=== PATIENT | male | born 1960 | race Caucasian/White ===

== ENCOUNTER 2022-11-30 07:08 | Inpatient (IN) ==
--- NOTE | 2022-11-12 10:42 | PAT Medication Instructions ---
Medication Instructions Date of Service November 12, 2022 Home Medications amlodipine 10 mg tablet 10 mg PO QAM apixaban 5 mg tablet (Eliquis) 5 mg PO BID furosemide 40 mg tablet 40 mg PO QAM losartan 100 mg-hydrochlorothiazide 25 mg tablet 1 tab PO QAM metoprolol succinate 50 mg tablet,extended release 24 hr 50 mg PO QAM multivitamin 1 tab PO QAM ASK your prescriber and surgeon apixaban 5 mg tablet (Eliquis) 5 mg PO BID DO NOT take the morning of surgery furosemide 40 mg tablet 40 mg PO QAM losartan 100 mg-hydrochlorothiazide 25 mg tablet 1 tab PO QAM multivitamin 1 tab PO QAM Take morning of surgery With a small sip of water, OTHERWISE NOTHING TO EAT OR DRINK AFTER MIDNIGHT: amlodipine 10 mg tablet 10 mg PO QAM metoprolol succinate 50 mg tablet,extended release 24 hr 50 mg PO QAM Other Notes If you have any questions please call us at [phone] or [phone] or [phone] or [phone]
--- NOTE | 2022-11-17 14:16 | Anesthesiology Consultation ---
Date of Service November 17, 2022 Assessment & Plan (1) Encounter for pre-operative examination: - COVID screening: Per assessment on 11/17: No known COVID-19 positive contacts or current COVID-19 related symptoms. Travel screen negative. Patient vaccinated. At surgeon discretion if preop Covid testing being done. - Nephrology office visit (06/20/22): "Mr. Trejo is awaiting surgical repair of his iliac aneurysm. I did speak w/ Dr. Guillory by telephone today. He plans CTA in early July followed by surgical intervention. He did indicate that Cr will be monitored and if CTA results in worsening renal function then TCC will be placed and Nephrology consultation requested to set up IHD in [place], [place]. Mr. Trejo is agreeable to this plan of care. Will schedule return visit in 2 months. Patient, however, will cancel if IHD is started.. CKD stage G5/A2 (End Stage Kidney Disease). Baseline Cr 4.5 w/ EGFR 15 cc/min. 05/[address] [facility] was negative for obstruction but did reveal nonobstruc ting kidney stones. Renal impairment is on the basis of vascular disease.. 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 Patient underwent a Lexiscan myocardial imaging study in April 2022 which showed small apical defect likely soft tissue artifact, underwent an echocardiogram in April 2022 as well which showed normal LV function, mild to moderate MR, trace AI and mild PI. With mildly dilated ascending aorta. He underwent a Holter monitor on April 16 as well which showed predominantly atrial fibrillation which was rate controlled with only 1 episode of RVR. He also had a CT scan of the chest abdomen pelvis that showed an aneurysm of the left common iliac artery for which she was referred to vascular surgery in [facility].. At this time he is doing well from a cardiac standpoint.. We will continue current medications.. Will recommend follow-up in 6 months. Is having aneurysm repair this month, will discuss SYDNIE cardioversion on next visit." - Eliquis instructions: per surgeon/prescriber - Check BMP AM DOS (low sodium at 132, kidney function stable- known hx of CKD stage 5) Chart Review Chart Review: Acceptable Risk for Surgery and Patient seen in Pre Admission Testing Teaching & Discussion Pre-Anesthesia Teaching/Discussion Notes: Instructed NPO after midnight before surgery,except medications with 15 cc of water. Medication instructions provided according to the PAT guidelines. History Surgery Operation Date: 11/30/22 09:35 Proposed Procedures p Iliac Aneurysm Repair, Percutaneous Endovascular Infrarenal Abdominal Aortic Aneurysm Repair - Lorenzo Guillory MD Height/Weight Height: 5 ft 11 in Weight: 111 kg Allergies Allergy/AdvReac Type Severity Reaction Status Date / Time No Known Drug Allergies Allergy Unknown Verified 11/11/22 07:43 Medications Home Medications Medication Instructions Recorded Confirmed Last Taken amlodipine 10 mg tablet 10 mg PO QAM 06/02/22 11/11/22 Unknown apixaban 5 mg tablet (Eliquis) 5 mg PO BID 06/02/22 11/11/22 Unknown furosemide 40 mg tablet 40 mg PO QAM 06/02/22 11/11/22 Unknown losartan 100 1 tab PO QAM 06/02/22 11/11/22 Unknown mg-hydrochlorothiazide 25 mg tablet metoprolol succinate 50 mg 50 mg PO QAM 06/02/22 11/11/22 Unknown tablet,extended release 24 hr multivitamin 1 tab PO QAM 06/02/22 11/11/22 Unknown Past Medical History Medical History AAA (abdominal aortic aneurysm) 3.4cm per abdomen/pelvis CTA 09/29/22 Aneurysm artery, iliac L>R (measuring up to 5.1cm) per abdomen/pelvis CTA 09/29/22 Atrial fibrillation [facility], taking Eliquis Chronic active hepatitis C Chronic kidney disease, stage V Cirrhosis COPD (chronic obstructive pulmonary disease) per records, pt denies H/O reduction of closed fracture right arm Hypertension Kidney stones Obesity Psoriasis PVD (peripheral vascular disease) Exercise / Class Metabolic Activity III < 4 Walking/Shop/Light housework Past Family History Family History Other No family history of adverse response to anesthesia Past Surgical History Surgical History H/O umbilical hernia repair History of colonoscopy History of lithotripsy S/P debridement left elbow for cellulitis Past Anesthesia History No Hx of Anesthesia Complications and No Family Hx of Anesthesia Complications History of PONV No Hx of PONV and No Hx of Motion Sickness Social History Smoking Status: Current every day smoker tobacco type: cigarettes Smoking cigarettes per day: Approximately 3 cigs/day Do You Dip or Chew Tobacco: No Hx Alcohol Use: No Hx Substance Use: Yes substance use type: marijuana (Very rare) Last Used Substance Other:: 3 months ago Review of Systems Patient denies chest pain, shortness of breath, fever, chills, cough, wheezing, palpitations. Physical Exam Vital Signs VITALS BP 128/86 P 95 TEMP 98.6 SP02 99%%RA RESP 16 PHYSICAL Full cervical extension range of motion. Full TMJ range of motion. TMD 3 finger breaths Mallampati Score 3 Dentition: full denture upper, partial on lower Lungs: clear throughout to auscultation Cardiac: regular rate, irregular rhythm, no murmurs noted Spine: normal Carotid arteries: negative bruit Extremities: no edema Short, thin staples Lab Results Anesthesia Preop Results Results Anesthesia Widget: WBC 10.29 K/ul (4.8-10.8) 11/17/22 Hgb 11.2 g/dl (14.0-18.0) L 11/17/22 Hct 33.7 % (40.1-51.0) L 11/17/22 Plt K/uL (130-400) 11/17/22 Na 132 mmol/L (136-145) L 11/17/22 K 4.7 mmol/L (3.5-5.1) 11/17/22 Cl 103 mmol/L (98-107) 11/17/22 CO2 21 mmol/L (21-32) 11/17/22 BUN 59 mg/dl (6-23) H 11/17/22 Creat 3.73 mg/dl (0.6-1.4) H 11/17/22 Glucose Level 97 mg/dl (70-99(Fasting)) 11/17/22 Blood Type A Positive 11/17/22 Antibody Screen NEGATIVE 11/17/22 Testing Electrocardiogram Date: 11/17/22 A. fib at 88bpm. LAD. Chest X-Ray Date: 11/18/22 FINDINGS: PA and lateral chest radiographs are obtained. No prior studies are available for comparison at the time of dictation. The heart is enlarged measuring atherosclerotic calcification of the thoracic aorta. The pulmonary vasculature is noncongested. The lungs and pleural spaces are clear. There is no pneumothorax. The skeletal structures are osteopenic. The bony thorax appears intact. IMPRESSION: Cardiomegaly with no active disease in the chest. Echocardiogram Date: 04/16/22 EF 60%. Mild concentric LVH. Mild to moderate MR directed eccentrically. Mild TR. Physiologic AL. Mildly increased PASP (42 mmHg). Enlarged ascending aorta (ascending equal 4.10 cm). Stress Test Date: 04/16/22 Type: nuclear Diaphragmatic attenuation. Normal gated MPI wall motion and EF. Small in size, mild intensity, fixed MPI defect of the distal inferior and infero-apical myocardium. This suggests small infarct or diaphragmatic attenuation. No evidence of ischemia. Low risk study. Lexiscan stress ECG was negative for myocardial ischemia. Other Testing CTA Abdomen/pelvis (09/29/22) Moderate atherosclerotic vascular disease with fusiform aneurysmal dilation of the abdominal aorta measuring up to 3.4 cm. Aneurysmal dilation of the left greater than right common iliac arteries measures up to 5.1 cm. Duplicated renal arteries with bilateral renal arterial stenosis as above. No dissection or arterial occlusion. Cirrhosis with splenomegaly suggestive of portal venous hypertension. Nonobstructing bilateral nephrolithiasis. Trace right pleural effusion. COVID-19 Risk Screen Screening Information COVID-19 Screen Date: 11/17/22 Exposure 21 Days Family/Household +COVID Last 21 Days: No Exposure 10 Days Any COVID Exposure Last 10 Days: No Symptoms Last 10 Days Experienced COVID Sx Last 10 Days: No + COVID 0-90 Days COVID + in Last 0-90 Days: No
[~2022-11-30 07:08] MED LIST: CEFAZOLIN 2,000 MG/15 ML SYR IV SCH; LACTATED RINGER'S 1,000 ML BAG IV SCH
--- NOTE | 2022-11-30 07:38 | History & Physical Report ---
Date of Service November 30, 2022 History of Present Illness Chief Complaint: AAA Primary Care Provider: Unique Frances MD Chief Complaint rm#7 here for f/u after CTA left iliac aneurysm. Last visit was 05/2022. History of Present Illness I the pleasure of seeing Cory today for follow-up. As you know he is an 62-year-old gentleman who has a known left common iliac artery aneurysm and negative ectatic right common iliac artery. He also has a small abdominal aortic aneurysm. He has no symptoms at this point. He has no claudication of either lower extremity. He does have generalized psoriasis present which he is not taking anything for it at this point. Physical Exam Vitals & Measurements HR: 94 (Monitored) BP: 134/92 SpO2: 98% Input and Output - Last 24 hours (Last 8 hours) No I/O Data Found: On exam he is awake alert and oriented x3. His blood pressure is 134/92. His lungs are clear. His heart has a reg rate and rhythm His abdominal exam is benign. He does have good distal pulses in both lower extremities. He has generalized psoriasis present over his lower extremities arms and buttock. He has no involvement of the groin at this point. CT scan showed a large left common iliac artery aneurysm and ectatic right common iliac. He does have a small abdominal aortic aneurysm. He does have 2 small accessory renal arteries coming off low on the aorta the left having a significant narrowing. Assessment/Plan Aneurysm artery, iliac At this point we recommend percutaneous repair of his abdominal and iliac arteries being that there is no neck on the iliac to do an endovascular repair. We will have to cover the 2 small renal arteries due to the their location. Risks options and benefits were discussed with the patient. He understood all these involved and agreed to go with this procedure. Generalized psoriasis We did start him on a steroid dose topically to be applied to the groins and upper thighs to help decrease the psoriasis and the planned areas of access for his endograft repair. Will keep me informed as to his results. Thank you very much for letting us participate in the care of this patient. Sincerely, Buddy Guillory MD Problem List/Past Medical History Ongoing Iliac artery aneurysm Tobacco user Historical No qualifying data Medications Inpatient No active inpatient medications Home amLODIPine 10 mg oral tablet, 10 mg= 1 tab, PO, Daily Eliquis 5 mg oral tablet, 5 mg= 1 tab, PO, bid fluocinolone 0.01% topical cream, 1 appl, topical, bid, 1 refills furosemide 40 mg oral tablet, 40 mg= 1 tab, PO, Daily hydroCHLOROthiazide-losartan 25 mg-100 mg oral tablet, 1 tab, PO, Daily Metoprolol Succinate ER 50 mg oral tablet, extended release, 50 mg= 1 tab, PO, Daily Mucomyst-20 for nebulization, See Instructions Allergies NKA Social History Smoking Status Current every day light smoker Signature Line Electronic Signature on File Lorenzo Guillory MD Author Signature Dt/Tm: 11/09/2022 03:06 PM Tribal Judge Werner Garrett [facility] [place] [address] [place] [address] EJS Result Type: .Outpt Ltr Date of Service: November 09, 2022 15:05 EST Authorization Status: Final Subject: Consult Note Author or Import Date: MD Guillory Eugene J on November 09, 2022 15:06 EST Verified By: MD Guillory Eugene J on November 09, 2022 15:06 EST Encounter info: [id number], [facility], Clinic, 11/09/2022 - 11/09/2022 Allergies Allergy/AdvReac Type Severity Reaction Status Date / Time No Known Drug Allergies Allergy Unknown Verified 11/30/22 07:36 Home Medications Medication Instructions Recorded Confirmed Type amlodipine 10 mg tablet 10 mg PO QAM 06/02/22 11/11/22 History apixaban 5 mg tablet (Eliquis) 5 mg PO BID 06/02/22 11/11/22 History furosemide 40 mg tablet 40 mg PO QAM 06/02/22 11/11/22 History losartan 100 1 tab PO QAM 06/02/22 11/11/22 History mg-hydrochlorothiazide 25 mg tablet metoprolol succinate 50 mg 50 mg PO QAM 06/02/22 11/11/22 History tablet,extended release 24 hr multivitamin 1 tab PO QAM 06/02/22 11/11/22 History Past Med/Surg History Medical History AAA (abdominal aortic aneurysm) 3.4cm per abdomen/pelvis CTA 11/29/22 Aneurysm artery, iliac L>R (measuring up to 5.1cm) per abdomen/pelvis CTA 09/29/22 Atrial fibrillation [facility], taking Eliquis Chronic active hepatitis C Chronic kidney disease, stage V Cirrhosis COPD (chronic obstructive pulmonary disease) per records, pt denies H/O reduction of closed fracture right arm Hypertension Kidney stones Obesity Psoriasis PVD (peripheral vascular disease) Surgical History H/O umbilical hernia repair History of colonoscopy History of lithotripsy S/P debridement left elbow for cellulitis Family History Other No family history of adverse response to anesthesia Social History Smoking Status: Current some day smoker Tobacco Type: Cigarettes Cigarettes Per Day: Approximately 3 cigs/day; Second Hand Exposure: No; Do You Dip or Chew Tobacco: No; Tobacco Cessation Education Requested by Patient: No Hx Alcohol Use: No Hx Substance Use: Yes Last Used Substance Other:: 3 months ago Preferred Language: Kazakh Communication Ability: Effective Automatic Beading Lathe Operator Required: No Beliefs That Will Affect Care: None Current Living Situation: Spouse Other Information That Helps Us Care for You: No Feels Safe at Home: Yes Safety Concerns: Feels Safe At This Time Assistive Devices: Denture - Upper and Denture - Lower
--- NOTE | 2022-11-30 07:39 | History & Physical Bridge Note ---
Date of Service November 30, 2022 History & Physical Bridge Note Patient for endovascular repair of his iliac and abdominal aortic aneurysms. I have discussed the risks options and benefits of the procedure with the patient. The patient understands the risks options and benefits and agrees to the procedure. I have examined the patient, reviewed the History & Physical and in the interval since the performance of the History & Physical I have noted the following changes of clinical significance: no changes noted
[2022-11-30] MEDS ORDERED: ONDANSETRON INJ 2 MG/ML 2 ML VIAL IV PRN (08:30)
[2022-11-30] MEDS ORDERED: ATROPINE SULFATE 0.1 MG/ML 10ML SYR IV PRN (08:30)
[2022-11-30] MEDS ORDERED: ePHEDrine sulfate 50 MG/ML AMP IV PRN (08:30)
[2022-11-30] MEDS ORDERED: fentaNYL citrate 100 MCG/2 ML VIAL IV PRN (08:30)
[2022-11-30] MEDS ORDERED: PROPOFOL IV EMULSION 10 MG/ML 20 ML VIAL IV ONE (08:34)
[2022-11-30] MEDS ORDERED: ONDANSETRON INJ 2 MG/ML 2 ML VIAL ONE (08:34)
[2022-11-30] MEDS ORDERED: ROCURONIUM BROMIDE 10 MG/ML 5 ML VIAL IV ONE ×4 (08:34→09:43)
[2022-11-30] MEDS ORDERED: LIDOCAINE 2% MPF LOCAL 5 ML VIAL INFIL ONE (08:34)
[2022-11-30] MEDS ORDERED: MIDAZOLAM HCL 1 MG/ML 2ML VIAL ONE (08:34)
[2022-11-30] MEDS ORDERED: fentaNYL citrate 100 MCG/2 ML VIAL ONE (08:34)
[2022-11-30 08:37] LABS: Calcium 8.8 mg/dl (8.5-10.1); Potassium 4.4 mmol/L (3.5-5.1)
[2022-11-30 08:42] LABS: BUN Creatinine Ratio 14.8 (10-20); Creatinine Clr Calc Pharmacy 21.8 ml/min; Est GFR (African American) 15.6 ml/min; Est GFR (Non-African American) 13.5 ml/min
[2022-11-30] MEDS ORDERED: VASOPRESSIN 20 UNIT/ML VIAL ONE (09:43)
[2022-11-30] MEDS ORDERED: ALBUTEROL HFA 8 GM INHALER INH ONE (09:44)
[2022-11-30] MEDS ORDERED: HEPARIN SOD (PORCINE) 1000 UNIT/ML ONE ×2 (10:50→11:00)
[2022-11-30] MEDS ORDERED: ALBUMIN HUMAN 5% 12.5 GM/250 ML VIAL IV ONE (10:57)
[2022-11-30] MEDS ORDERED: GLYCOPYRROLATE 0.2 MG/ML VIAL ONE (11:27)
[2022-11-30] MEDS ORDERED: NEOSTIGMINE METHYLSULFATE 1 MG/ML 10ML VIAL ONE (11:27)
[2022-11-30] MEDS ORDERED: PHENYLEPHRINE HCL 10 MG/ML VIAL ONE (11:27)
[2022-11-30] MEDS ORDERED: VISIPAQUE IV PRN (11:37)
[2022-11-30] MEDS ORDERED: ARISTA ABSORBABLE HEMOSTAT 3GM TOP ONE (11:37)
--- NOTE | 2022-11-30 11:50 | Post Operative Brief Note ---
Immediate Post Op Note v1 Date of Surgery November 30, 2022 Pre & Post Diagnosis Operation Date: 11/30/22 09:10 Pre-Op Diagnosis: Abdominal Aortic Aneurysm, Left Iliac Artery Aneurysm Post-Op Diagnosis: Abdominal Aortic Aneurysm, Left Iliac Artery Aneurysm I identified the patient and participated in the time-out.: Yes Procedure Operation Date: 11/30/22 09:10 Actual Procedures p Percutaneous Endovascular Abdominal Aortic Aneurysm Repair with Iliac Branch Device, Ultrasound Localization of Bilateral Femoral Arteries, Mechanical Closure of Bilateral Femoral Arteries(Bilateral) - Lorenzo Guillory MD Surgeon Lorenzo Guillory MD Hazardous Materials Handler MD Carlos Estimated Blood Loss 100 Findings Consistent with Post-Op Diagnosis Anesthesia Type General Complications none Disposition Accompanied Patient To Recovery: No Disposition: Recovery Room
--- NOTE | 2022-11-30 11:52 | Operative Report ---
Post Operative Report Pre & Post Diagnosis Operation Date: 11/30/22 09:10 Pre-Op Diagnosis: Abdominal Aortic Aneurysm, Left Iliac Artery Aneurysm Post-Op Diagnosis: Abdominal Aortic Aneurysm, Left Iliac Artery Aneurysm I identified the patient and participated in the time-out.: Yes Procedure Operation Date: 11/30/22 09:10 Actual Procedures p Percutaneous Endovascular Abdominal Aortic Aneurysm Repair with Iliac Branch Device, Ultrasound Localization of Bilateral Femoral Arteries, Mechanical Closure of Bilateral Femoral Arteries(Bilateral) - Lorenzo Guillory MD Surgeon Lorenzo Guillory MD Shorts Sifter Gabe Estrella Estimated Blood Loss 100 Findings Consistent with Post-Op Diagnosis Bilateral common femoral artery access visualized under ultrasound guidance. Left common iliac artery aneurysm and small infrarenal abdominal aortic aneurysm as well as ectatic right common iliac artery visualized on aortogram. Following deployment of iliac branch device and EVAR, there was complete exclusion of the small abdominal aortic aneurysm, common iliac artery aneurysm on the left. There was no Type I, III, or IV endoleak. There was a small type II endoleak. The bilateral internal iliac arteries remained patent at case completion as well as the bilateral renal arteries. The bilateral accessory renal arteries were occluded as planned pre-procedure. Specimens None Anesthesia Type General Complications None Indications This is a 62 year old male with PMH of a large left common iliac artery aneurysm and a small infrarenal abdominal aortic aneurysm as well as a history of CKD anticipating the need for hemodialysis within the next year. He presents today for repair of his large left common iliac artery aneurysm as well as his infrarenal AAA with an iliac branch device followed by EVAR. Description of Procedure The patient was taken to the operating room suite and placed in the supine position. Time out was performed and the correct patient, procedure, and laterality were confirmed. Two grams of lake-operative Ancef were given. The abdomen, bilateral groins, and bilateral thigh was then prepped and draped in a sterile manner. Using ultrasound guidance, the right common femoral artery was accessed using micropuncture technique. An 8Fr Manta measuring device was inserted over the wire measuring a depth of 5+1. The measuring device was removed. A small skin incision was made at the skin site of entry and subcutaneous tissue was dilated using a hemostat. The measuring device was then exchanged for an 12Fr x 45cm DrySeal sheath over the wire under fluoroscopic guidance. The wire was then exchanged for a Rubin wire. An angled glide wire was then introduced into the right DrySeal sheath and brought into the infrarenal aorta. A Snare device was advance over the wire to the level of the aortic bifurcation. The angle glide wire was then removed from the right groin. Attention was then turned to the left groin where the left common femoral artery was accessed using micropuncture technique. An angled glide wire was then inserted. A small skin incision was made at the skin site of entry and subcutaneous tissue was dilated using a hemostat. A 8Fr Manta measuring device into the left common femoral artery over the angled glide wire, measuring a depth of 4+1cm. The measuring device was then exchanged for an 12Fr dilator followed by a 16Fr x 33cm DrySeal sheath over the wire under fluoroscopic imaging. The wire was then exchanged for a Rubin wire. An angled glide was then inserted into the left DrySeal sheath into the infrarenal aorta. It was captured by the Snare device on the right and brought out through the right DrySeal Sheath The left VIKTORIYA Sheldon Excluder main body (23mm x 14.5mm x 10cm) was then advance over the Rubin wire to the proximal left common iliac artery. A left pelvic angiogram was performed and the left iliac bifurcation was marked. The left VIKTORIYA main body was deployed. The right Rubin wire was removed and the right sheath was advanced over the flossed angled glide wire into the left common iliac artery within the VIKTORIYA main body. An angled glide wire was introduced and used to cannulate the left internal iliac artery through the device with the help of a Confianza catheter. Wire was exchanged for an Stiff Amplatz. A left pelvic angiogram was performed through the right 12Fr sheath. The bifurcation, proximal and distal landing zones were marked. The left internal Sheldon Excluder VIKTORIYA component ([id number]) was deployed. On the right side, the 12Fr sheath was exchanged for a 16Fr dilator followed by an exchange for a 18Fr x 33mm DrySeal sheath. This was advanced into the infrarenal aorta over a Rubin wire. A pigtail catheter was advanced over the Rubin wire on the left, the wire was removed and the pigtail was connected to the power injector. An aortogram was taken and the level of the inferior origin of the bilateral renal arteries were marked. The EVAR Sheldon Excluder main body ([id number]) was deployed to the opening of the contralateral gate. From the left side, the pigtail catheter was exchanged for Confianza catheter over an angled glide wire. The contralateral gate was cannulated using an angled glide wire. Catheter was spun within the proximal portion of the graft to confirm true lumen. A left pelvic angiogram was taken through the left sheath marking the origin of the common and internal iliac artery on the left. An appropriately sized 16mm x 27mm x 10cm Sheldon Excluder left bridge limb was then advanced and deployed. The proximal graft, origin of left limb at the flow divider, and the distal limb were then ballooned using hand insufflation. Attention was moved to the right side where an appropriately sized 16mm x 23mm x 10cm Sheldon excluder iliac extension limb was deployed and then ballooned using hand insufflation just following ballooning of the proximal portion of the EVAR. A completion angiogram was performed demonstrating No Type I or type III endoleak. There was a small Type II endoleak. Bilateral renal arteries and internal iliac arteries patent with brisk filling. Accessory renal arteries covered without filling. The left DrySeal sheath was exchanged for the 18Fr Manta device. The Manta was deployed. Adequate hemostasis was obtained. Pressure was held. The right DrySeal sheath was exchanged for the 18Fr Manta device. The Manta was deployed. Adequate hemostasis was obtained. Pressure was held. Patient was extubated and taken to the PACU in stable condition. A total of 105cc contrast used for the duration of the case. Dr. Guillory was present and scrubbed for the entire procedure. I attest to the content of the Intraoperative Record and any orders documented therein. Any exceptions are noted below. Supervising Physician Co-Signing Physician Notes Lorenzo Guillory MD
--- NOTE | 2022-11-30 12:21 | Anesthesiology Progress Note ---
Date of Service November 30, 2022 Anesthesia Post Procedure Vital Signs Vital Signs: Temp Pulse Pulse Resp BP BP Pulse Ox 11/30/22 12:07 97.3 F L 84 25 H 93/56 L 99 11/30/22 07:46 97.9 F 91 H 16 129/85 139/95 98 O2 Del Method O2 Flow Rate 11/30/22 12:07 Oxymask 4 11/30/22 07:46 Room Air Pain Intensity Right Foot: Pain Intensity: 3 Transfer of Care Handoff Completed per policy Notes Mental Status: alert / awake / arousable and participated in evaluation Patient Amnestic to Procedure: Yes Nausea / Vomiting: adequately controlled Pain: adequately controlled Airway Patency, RR, SpO2: stable & adequate BP & HR: stable & adequate Hydration State: stable & adequate Anesthetic Complications: no major complications apparent and Pt Satisfied with anesthetic care
[2022-11-30 12:42] LABS: Hematocrit (blood only) 27.1 % (42.0-52.0); Hemoglobin 8.9 g/dl (14.0-18.0)
[2022-11-30] MEDS ORDERED: D5W AND 1/2NSS 1,000 ML IV SCH (12:43)
[2022-11-30 13:00] LABS: Potassium 4.5 mmol/L (3.5-5.1)
[2022-11-30 13:05] LABS: BUN Creatinine Ratio 14.7 (10-20); Est GFR (African American) 15.7 ml/min; Est GFR (Non-African American) 13.6 ml/min
--- NOTE | 2022-11-30 13:39 | Critical Care Consultation ---
Date of Consultation November 30, 2022 Assessment & Plan (1) Post-operative state: 62 y/o gentleman with a PMHx of a. fib, HTN, CKD/ESRD (not on dialysis) and tobacco use now s/p percutaneous iliac artery and AAA repair 11/[address] Guillory. Patient did have some hypotension on arrival to the ICU which has since improved. Percocet for pain management. Overall doing well and recovering appropriately. Lay flat for 6 hours post-op. Continue to monitor. Rest of care per Dr. Guillory. FENGI: sips and chips DVT ppx: SCDs Code status: full Dispo: ICU (2) Hypertension: Continue home meds - will hold if patient continues to have soft BPs (3) Atrial fibrillation: Continue home Eliquis and metoprolol (4) Aneurysm artery, iliac: s/p repair - see above Supervising Physician Co-Signing Physician Notes Dr. Greene was resident physician during care of patient. I was present during the critical portion of medical decision making, and I discussed the case with the resident. I generally agree with the findings and plan. History of Present Illness Attending Physician: Lorenzo Guillory MD History of Present Illness 62 y/o male admitted to ICU level care after percutaneous iliac artery aneurysm and AAA repair 11/30. Overall doing well. Allergies Allergy/AdvReac Type Severity Reaction Status Date / Time No Known Drug Allergies Allergy Unknown Verified 11/30/22 07:36 Home Medications Medication Instructions Recorded Confirmed Type amlodipine 10 mg tablet 10 mg PO QAM 06/02/22 11/30/22 History apixaban 5 mg tablet (Eliquis) 5 mg PO BID 06/02/22 11/30/22 History furosemide 40 mg tablet 40 mg PO QAM 06/02/22 11/30/22 History losartan 100 1 tab PO QAM 06/02/22 11/30/22 History mg-hydrochlorothiazide 25 mg tablet metoprolol succinate 50 mg 50 mg PO QAM 06/02/22 11/30/22 History tablet,extended release 24 hr multivitamin 1 tab PO QAM 06/02/22 11/30/22 History oxycodone-acetaminophen 5 mg-325 1 tab PO Q6H PRN pain #10 tabs 12/01/22 Rx mg tablet (Percocet) Patient History Medical History (Updated 11/30/22 @ 13:49 by Matilda Greene MD) AAA (abdominal aortic aneurysm) 3.4cm per abdomen/pelvis CTA 09/29/22 Aneurysm artery, iliac L>R (measuring up to 5.1cm) per abdomen/pelvis CTA 09/29/22 Atrial fibrillation [facility], taking Eliquis Chronic active hepatitis C Chronic kidney disease, stage V Cirrhosis COPD (chronic obstructive pulmonary disease) per records, pt denies H/O reduction of closed fracture right arm Hypertension Kidney stones Obesity Psoriasis PVD (peripheral vascular disease) Surgical History (Updated 12/01/22 @ 08:00 by Lorenzo Guillory MD) H/O umbilical hernia repair History of colonoscopy History of lithotripsy S/P debridement left elbow for cellulitis Family History Other No family history of adverse response to anesthesia Social History Smoking Status: Current some day smoker Tobacco Type: Cigarettes Cigarettes Per Day: Approximately 3 cigs/day; Second Hand Exposure: No; Do You Dip or Chew Tobacco: No; Tobacco Cessation Education Requested by Patient: No Hx Alcohol Use: No Hx Substance Use: Yes Last Used Substance Other:: 3 months ago Preferred Language: Armenian Communication Ability: Effective 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: No Beliefs That Will Affect Care: None Current Living Situation: Spouse Other Information That Helps Us Care for You: No Feels Safe at Home: Yes Safety Concerns: Feels Safe At This Time Assistive Devices: Denture - Upper and Denture - Lower Physical Exam Constitutional: no acute distress Respiratory: normal respiratory effort; no respiratory distress Auscultation: lungs clear to auscultation bilaterally Cardiovascular: Rate/Rhythm: + abnormal rate and + abnormal rhythm Heart Sounds: no murmur DP 2+ symmetric, no calf tenderness, no edema Skin: gauze in place over bilateral groin incisions, slight strike through right side. left side c/d/i Psychiatric: Orientation: alert and oriented x 3 Results & Data Results & Data ([facility]) Vital Signs (Past 12 Hours) Vital Signs Temp Pulse Pulse Pulse Resp BP BP 11/30/22 13:00 78 14 89/67 L 11/30/22 13:00 36.5 C 11/30/22 12:35 36.2 C L 80 21 96/63 L 11/30/22 12:25 81 23 91/69 L 11/30/22 12:15 69 26 H 93/63 L 11/30/22 12:07 36.3 C L 84 25 H 93/56 L 11/30/22 07:46 36.6 C 91 H 16 129/85 BP BP Pulse Ox O2 Del Method O2 Flow Rate 11/30/22 13:00 93 Room Air 11/30/22 13:00 11/30/22 12:35 92/54 L 94 Room Air 11/30/22 12:25 98/58 L 93 Room Air 11/30/22 12:15 94 Room Air 11/30/22 12:07 99 Oxymask 4 11/30/22 07:46 139/95 98 Room Air Laboratory Results 11/30/22 11/30/22 11/30/22 Range/Units Unknown 12:15 12:15 Hgb 8.9 L (14.0-18.0) g/dl Hct 27.1 L (42.0-52.0) % Sodium 136 (136-145) mmol/L Potassium 4.5 (3.5-5.1) mmol/L Chloride 110 H (98-107) mmol/L Carbon Dioxide 19 L (21-32) mmol/L Anion Gap 7 (3-11) BUN 63 H (6-23) mg/dl Creatinine 4.30 H (0.6-1.4) mg/dl Est Cr Clr Drug Dosing 22.0 ml/min Est GFR ( Amer) 15.7 ml/min Est GFR (Non-Af Amer) 13.6 ml/min BUN/Creatinine Ratio 14.7 (10-20) Glucose 82 (70-99(Fasting)) mg/dl Calcium 8.0 L (8.5-10.1) mg/dl Nasal Screen MRSA (PCR) Pending SARS-CoV-2, RNA, NAAT (NEGATIVE) Blood Type Antibody Screen Crossmatch 11/30/22 11/30/22 11/30/22 Range/Units 07:39 07:39 07:15 Hgb (14.0-18.0) g/dl Hct (42.0-52.0) % Sodium 135 L (136-145) mmol/L Potassium 4.4 (3.5-5.1) mmol/L Chloride 108 H (98-107) mmol/L Carbon Dioxide 18 L (21-32) mmol/L Anion Gap 9 (3-11) BUN 64 H (6-23) mg/dl Creatinine 4.32 H (0.6-1.4) mg/dl Est Cr Clr Drug Dosing 21.8 ml/min Est GFR ( Amer) 15.6 ml/min Est GFR (Non-Af Amer) 13.5 ml/min BUN/Creatinine Ratio 14.8 (10-20) Glucose 97 (70-99(Fasting)) mg/dl Calcium 8.8 (8.5-10.1) mg/dl Nasal Screen MRSA (PCR) SARS-CoV-2, RNA, NAAT NEGATIVE (NEGATIVE) Blood Type A Positive Antibody Screen NEGATIVE Crossmatch See Detail Resident Activity Tracking Resident Involvement: Resident Care Provided Care Provided: Adult Hospital Medicine
[2022-11-30] MEDS: oxyCODONE/ACETAMINOPHEN 5mg/325mg TAB PO PRN ×2 (13:58→20:09)
[2022-11-30] MEDS: ICU Protocol for HYPERglycemia SCH (16:50)
[2022-11-30] MEDS: ceFAZolin 2000MG 2,000 MG/15 ML SYR IV SCH (17:01)
[2022-11-30] MEDS ORDERED: COUGH DROP (SUGAR FREE) LOZ 24 LOZ/1 BOX BUCCAL STA (19:19)
[2022-11-30] MEDS: APIXABAN 5 MG TABLET PO SCH (20:11)
[2022-12-01] MEDS: ceFAZolin 2000MG 2,000 MG/15 ML SYR IV SCH (01:00)
[2022-12-01] MEDS: ICU Protocol for HYPERglycemia SCH ×2 (04:10→07:48)
[2022-12-01 05:19] LABS: BUN Creatinine Ratio 14.9 (10-20); Calcium 7.9 mg/dl (8.5-10.1); Est GFR (African American) 15.7 ml/min; Est GFR (Non-African American) 13.6 ml/min; Magnesium 1.5 mg/dl (1.7-2.4); Phosphorus 5.1 mg/dl (2.5-4.9); Potassium 4.6 mmol/L (3.5-5.1)
[2022-12-01] MEDS: MAGNESIUM SULFATE / D5W 1 GM/100 ML BAG IV SCH ×3 (05:56→08:32)
[2022-12-01 07:15] LABS: Basophils # (auto) 0.04 K/uL (0-0.2); Basophils % (auto) 0.3 %; Eosinophils % (auto) 1.7 %; Hematocrit (blood only) 27.7 % (42.0-52.0); Immature Granulocytes # (auto) 0.04 K/uL (0.01-0.20); Immature Granulocytes % (auto) 0.3 %; Lymphocytes # (auto) 2.46 K/uL (1.2-3.4); Lymphocytes % (auto) 21.4 %; Mean Corpuscular Hgb Conc 32.5 g/dL (32.0-36.0); Mean Corpuscular Volume 92.3 fL (80.0-100.0); Mean Platelet Volume 13.1 fL (9.4-12.4); Monocytes # (auto) 0.33 K/uL (0.11-0.59); Monocytes % (auto) 2.9 %; Neutrophils # (auto) 8.42 K/uL (1.40-6.50); Neutrophils % (auto) 73.4 %; Platelet Count 108 K/uL (130-400); Platelet Estimate Decreased (Normal); RDW Coefficient of Variation 14.7 % (11.5-14.5); RDW Standard Deviation 50.1 fL (36.4-46.3); White Blood Count 11.49 K/ul (4.8-10.8)
--- NOTE | 2022-12-01 08:01 | Surgery Progress Note ---
Date of Service December 01, 2022 Assessment & Plan (1) Status post endovascular aneurysm repair: Plan: Doing well. Will D/C today. Will check his GFR later this week. Admission and Anticipated Discharge Date Admission Date: November 30, 2022 Subjective No complaints. Only mild groin discomfort. Controlled with one pain pill during the night. Taking his diet without problems. Physical Exam Constitutional: WD/WN, vitals as above Respiratory: normal respiratory effort; no respiratory distress Cardiovascular: Rate/Rhythm: regular rate and regular rhythm Extremities: normal capillary refill Gastrointestinal (Abdomen): Inspection/Auscultation: abdomen normal to inspection Percussion/Palpation: abdomen soft; abdomen nontender Skin: + incision (no hematoma of puncture sites) Psychiatric: Orientation: alert and oriented x 3 Results & Data ([facility]) Vital Signs (Past 12 Hours) Vital Signs Temp Pulse Resp BP Pulse Ox 12/01/22 04:00 99 H 16 92 12/01/22 04:00 117/80 12/01/22 03:00 95 H 20 92 12/01/22 03:00 123/82 12/01/22 02:00 93 H 21 90 12/01/22 02:00 103/72 12/01/22 01:00 94 H 19 91 12/01/22 01:00 107/69 12/01/22 00:00 90 25 H 92 12/01/22 00:00 101/70 11/30/22 23:00 96 H 15 89 L 11/30/22 23:00 104/64 11/30/22 22:00 94 H 22 93 11/30/22 22:00 103/76 11/30/22 21:00 82 22 95 11/30/22 21:00 116/77 12/01/22 04:00 36.7 C 12/01/22 00:17 36.7 C 12/01/22 00:00 88 12/01/22 00:00 36.7 C 11/30/22 20:00 88 16 95 11/30/22 20:00 113/73 11/30/22 20:00 36.7 C
--- NOTE | 2022-12-01 08:11 | Discharge Summary ---
Date of Service December 01, 2022 Admission HPI Per Admitting Provider Chief Complaint rm#7 here for f/u after CTA left iliac aneurysm. Last visit was 05/2022. History of Present Illness I the pleasure of seeing Cory today for follow-up. As you know he is an 62-year-old gentleman who has a known left common iliac artery aneurysm and negative ectatic right common iliac artery. He also has a small abdominal aortic aneurysm. He has no symptoms at this point. He has no claudication of either lower extremity. He does have generalized psoriasis present which he is not taking anything for it at this point. Physical Exam Vitals & Measurements HR: 94 (Monitored) BP: 134/92 SpO2: 98% Input and Output - Last 24 hours (Last 8 hours) No I/O Data Found: On exam he is awake alert and oriented x3. His blood pressure is 134/92. His lungs are clear. His heart has a reg rate and rhythm His abdominal exam is benign. He does have good distal pulses in both lower extremities. He has generalized psoriasis present over his lower extremities arms and buttock. He has no involvement of the groin at this point. CT scan showed a large left common iliac artery aneurysm and ectatic right common iliac. He does have a small abdominal aortic aneurysm. He does have 2 small accessory renal arteries coming off low on the aorta the left having a significant narrowing. Assessment/Plan Aneurysm artery, iliac At this point we recommend percutaneous repair of his abdominal and iliac arteries being that there is no neck on the iliac to do an endovascular repair. We will have to cover the 2 small renal arteries due to the their location. Risks options and benefits were discussed with the patient. He understood all these involved and agreed to go with this procedure. Generalized psoriasis We did start him on a steroid dose topically to be applied to the groins and upper thighs to help decrease the psoriasis and the planned areas of access for his endograft repair. Will keep me informed as to his results. Thank you very much for letting us participate in the care of this patient. Sincerely, Buddy Guillory MD Problem List/Past Medical History Ongoing Iliac artery aneurysm Tobacco user Historical No qualifying data Medications Inpatient No active inpatient medications Home amLODIPine 10 mg oral tablet, 10 mg= 1 tab, PO, Daily Eliquis 5 mg oral tablet, 5 mg= 1 tab, PO, bid fluocinolone 0.01% topical cream, 1 appl, topical, bid, 1 refills furosemide 40 mg oral tablet, 40 mg= 1 tab, PO, Daily hydroCHLOROthiazide-losartan 25 mg-100 mg oral tablet, 1 tab, PO, Daily Metoprolol Succinate ER 50 mg oral tablet, extended release, 50 mg= 1 tab, PO, Daily Mucomyst-20 for nebulization, See Instructions Allergies NKA Social History Smoking Status Current every day light smoker Signature Line Electronic Signature on File Lorenzo Guillory MD Author Signature Dt/Tm: 11/09/2022 03:06 PM 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 [employer] Werner Garrett [facility] [address], [address] [place] [address] EJS Result Type: .Outpt Ltr Date of Service: November 09, 2022 15:05 EST Authorization Status: Final Subject: Consult Note Author or Import Date: MD Guillory Eugene J on November 09, 2022 15:06 EST Verified By: MD Guillory Eugene J on November 09, 2022 15:06 EST Encounter info: [id number], [facility], Clinic, 11/09/2022 - 11/09/2022 Admission Exam Per Admitting Provider On exam he is awake alert and oriented x3. His blood pressure is 134/92. His lungs are clear. His heart has a reg rate and rhythm His abdominal exam is benign. He does have good distal pulses in both lower extremities. He has generalized psoriasis present over his lower extremities arms and buttock. He has no involvement of the groin at this point. CT scan showed a large left common iliac artery aneurysm and ectatic right common iliac. He does have a small abdominal aortic aneurysm. He does have 2 small accessory renal arteries coming off low on the aorta the left having a significant narrowing. Principal Diagnosis Abdominal aortic and iliac artery aneurysms Discharge Exam Constitutional WD/WN, vitals as above Respiratory normal respiratory effort; no respiratory distress Cardiovascular Rate/Rhythm: regular rate and regular rhythm Extremities: normal capillary refill Gastrointestinal (Abdomen) Inspection/Auscultation: abdomen normal to inspection Percussion/Palpation: abdomen soft; abdomen nontender Skin + incision (no hematoma of puncture sites) Psychiatric Orientation: alert and oriented x 3 Discharge Data Allergies Allergy/AdvReac Type Severity Reaction Status Date / Time No Known Drug Allergies Allergy Unknown Verified 11/30/22 07:36 Consultations 11/30/22 12:43 Consult Sheet Fed Printer Routine 11/30/22 13:26 Consult Sheet Fed Printer Routine Procedures Performed Operation Date: 11/30/22 09:10 Actual Procedures p Percutaneous Endovascular Abdominal Aortic Aneurysm Repair with Iliac Branch Device, Ultrasound Localization of Bilateral Femoral Arteries, Mechanical Closure of Bilateral Femoral Arteries(Bilateral) - Lorenzo Guillory MD Ordered Studies 11/30/22 US EV guide vascular access Routine 11/30/22 07:14 EV Angio Abdomen Aorta Routine 11/30/22 08:29 sono, invasive monitoring [US point of care ultrasound] Stat Hospital Course (1) Status post endovascular aneurysm repair: Doing well. Will D/C today. Will check his GFR later this week. Total Time Total Time Spent Total Time Spent (In Minutes): 0 Discharge Plan Discharge Items Patient Disposition: Home - Self-Care Reason For Visit: AAA AND ILIAC ANEURYSM Discharge Diagnosis: Abdominal aortic aneurysm and iliac artery aneurysms Activity: Per Instructions section Non-emergency contact: Surgeon Call non-emergency contact if: your temperature is above 101.5, your wound has increased redness, your wound has increased drainage and your wound pain has increased Follow-up/Referrals: Unique Frances MD [Primary Care Provider] - Diet: Heart Healthy Ambulatory Orders: Basic Metabolic Panel (Routine) Timeframe: 3 Days Location: Determined by Patient Ordered By: Lorenzo Gonzaleztl Attending Provider Instructions: SPECIAL CARE INSTRUCTIONS: Medications: * Continue to take your medications as directed. Incision/Puncture Site Care: * You will have an incision or puncture in each of your groins. Liquid glue will be used to seal your incisions/puncture site. This will lift off as the incisions/puncture sites heal. * If Liquid glue is not used, there will be small dressings covering your incisions. After you get home, you may remove the dressings and shower - allowing the warm soapy water to run over it. * Be sure to dry the sites well and keep them dry. * DO NOT SOAK IN A TUB/POOL/etc. UNTIL ALL SURGICAL SITES ARE HEALED. DO NOT REMOVE THE GLUE UNTIL THE INCISIONS HEAL. Restrictions: * Limit yourself to assembler radio and electrical activity for the first week. * You may walk and go up and down steps. * Avoid excessive bending or movement at the level of the incisions or punctures. Risks and Possible Complications: * Infection/Drainage/Bleeding - Drainage or bleeding from the incisions/puncture site should be minimal. If you have excessive bleeding or drainage, call our office ([phone]) right away. * Pain/Numbness - You may experience some mild pain or soreness at your incision sites. You may also have some numbness around the incisions or into the insides of your thighs. Bruising is normal and should resolve within 2 weeks. * Changes in Appetite or Bowel Habits - Mostly related to anesthesia and pain medication, some patients have reported decreased appetite and/or problems with constipation. These symptoms usually improve over a few weeks. Remembering to take an [id number] stool softener, as directed, will help you to avoid constipation. Call our office and seek emergent treatment if you develop: * Fever or chills * Have a temperature greater than 101 degrees F * Any redness or purulent drainage from your incisions or punctures * Severe abdominal, chest or back pain SKIN IRRITATION: * You may experience some redness and/or swelling in the area where radiation was administered. If any skin irritation occurs, please contact your family physician. You will be receiving a call from the Vascular Surgery Nurse after you are discharged. FOLLOW UP VISIT: It is important for you to keep your follow up appointments with your medical provider. Keep any scheduled doctor appointments. Call [phone] to schedule a follow up appointment if one not already scheduled. Pending Studies at Discharge: No Stand-Alone Forms: My [facility], Smoking Cessation Medications and DC Order Prescriptions: New oxycodone-acetaminophen [Percocet] 5-325 mg tablet 1 tab PO Q6H PRN (Reason: pain) Qty: 10 0RF Continued multivitamin Tablet 1 tab PO QAM losartan-hydrochlorothiazide 100-25 mg tablet 1 tab PO QAM Eliquis 5 mg tablet 5 mg PO BID amlodipine 10 mg tablet 10 mg PO QAM metoprolol succinate 50 mg tablet extended release 24 hr 50 mg PO QAM furosemide 40 mg tablet 40 mg PO QAM Discharge Orders: Discharge Order (Routine); Ordered 12/01/22 Ordered By: Lorenzo Guillory Admission Data Admit Date/Time: 11/30/22 08:18 Attending Provider: Lorenzo Guillory Admit Provider: Lorenzo Guillory Primary Care Provider: Unique Frances Other Providers: Dave Garrison ; Magdi Rao ; Rafael Kessler ; Ant Deluna ; Dre Ndiaye ; Moisés Grace ; Jesus Marsh ; Dwaine Muro ; Loni Chavez
[2022-12-01] MEDS ORDERED: LOSARTAN/HCTZ 50/12.5MG TAB PO SCH (09:00)
[2022-12-01] MEDS ORDERED: METOPROLOL SUCC 50MG EXT REL TAB PO SCH (09:00)
[2022-12-01] MEDS ORDERED: amLODIPine BESYLATE 5 MG TAB PO SCH (09:00)
[2022-12-01] MEDS ORDERED: MULTIVITAMIN TAB PO SCH (09:00)
[2022-12-01] MEDS ORDERED: FUROSEMIDE 40 MG TAB PO SCH (09:00)
[2022-12-01] MEDS: APIXABAN 5 MG TABLET PO SCH (09:01)
== END 2022-12-01 11:52 | disposition home or self-care (01) | DRG 269 ==
LOC: ASU 07:08 → 1E 08:18

== ENCOUNTER 2023-02-20 11:45 | Inpatient (IN) ==
--- NOTE | 2023-02-20 12:37 | Emergency Department Note ---
History of Present Illness General Chief complaint: Swelling/Edema to Extremity Stated complaint: OXYGEN 87%, SWOLLEN EXTREMITIES Time Seen by Provider: 02/20/23 12:23 Source: patient, family (Daughter who is at the bedside), RN notes reviewed and old records reviewed Mode of arrival: ambulatory Limitations: no limitations History of Present Illness This patient is a 63-year-old male who comes in after having increasing edema and O2 sat of 90 to 87% at home. He saw Dr. Guillory on for follow-up for aneurysm and iliac artery surgery that was done in November 30. He has been doing well in this regard however he started retaining fluids last 3 to 4 weeks and was told that he gained 40 to 50 pounds of fluid. He does have some increasing shortness of breath he is on Lasix 40 mg a day although denies any history of CHF he is on Eliquis for A-fib no blood or melena stool no fall or trauma no cough or chest pain. He feels like his belly is swollen as well as his legs bilaterally. Home Medications Medication Instructions Recorded Confirmed Type amlodipine 10 mg tablet 10 mg PO QAM 06/02/22 02/20/23 History apixaban 5 mg tablet (Eliquis) 5 mg PO DAILY 06/02/22 02/20/23 History furosemide 40 mg tablet 40 mg PO QAM 06/02/22 02/20/23 History losartan 100 1 tab PO QAM 06/02/22 02/20/23 History mg-hydrochlorothiazide 25 mg tablet metoprolol succinate 50 mg 50 mg PO QAM 06/02/22 02/20/23 History tablet,extended release 24 hr Allergies Allergy/AdvReac Type Severity Reaction Status Date / Time No Known Drug Allergies Allergy Unknown Verified 11/30/22 07:36 Past Med/Surg History Medical History AAA (abdominal aortic aneurysm) 3.4cm per abdomen/pelvis CTA 09/29/22 Aneurysm artery, 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 (measuring up to 5.1cm) per abdomen/pelvis CTA 09/29/22 Atrial fibrillation [facility], taking Eliquis Chronic active hepatitis C Chronic kidney disease, stage V Cirrhosis COPD (chronic obstructive pulmonary disease) per records, pt denies H/O reduction of closed fracture right arm Hypertension Kidney stones Obesity Psoriasis PVD (peripheral vascular disease) Surgical History H/O umbilical hernia repair History of colonoscopy History of lithotripsy S/P debridement left elbow for cellulitis Family History Other No family history of adverse response to anesthesia Social History Smoking Status: Former smoker Tobacco Type: Cigarettes Cigarettes Per Day: Approximately 3 cigs/day; Second Hand Exposure: No; Hx Alcohol Use: No Hx Substance Use: Yes Last Used Substance Other:: 3 months ago Preferred Language: French Communication Ability: Effective Medicare Interviewer Required: No Beliefs That Will Affect Care: None Current Living Situation: Spouse Feels Safe at Home: Yes Assistive Devices: None Review of Systems A total of 10 systems reviewed and were otherwise negative Physical Exam Vital Signs Vital Signs - 24 hr 02/20/23 11:52 02/20/23 12:22 02/20/23 12:33 Temperature 36.3 C L Temperature Source Temporal Artery Scan Pulse Rate 87 92 H 80 Pulse Rate from SpO2 Sensor Respiratory Rate 26 H Respiratory Effort / Characteristics Spontaneous Short of Breath Blood Pressure 120/70 Blood Pressure Mean 86 Pulse Oximetry 92 96 Oxygen Delivery Method Room Air Nasal Cannula Oxygen Flow Rate 2 Sepsis New/Unexplained Change in Mental Status N/A Sepsis Action Taken by Nursing No Action Required 02/20/23 16:06 02/20/23 12:20 02/20/23 12:30 Temperature Temperature Source Pulse Rate 92 H 90 90 Pulse Rate from SpO2 Sensor 91 H 92 H Respiratory Rate 25 H 28 H Respiratory Effort / Characteristics Blood Pressure Blood Pressure Mean Pulse Oximetry 98 97 Oxygen Delivery Method Nasal Cannula Nasal Cannula Oxygen Flow Rate 2 2 Sepsis New/Unexplained Change in Mental Status Sepsis Action Taken by Nursing 02/20/23 13:00 02/20/23 13:30 02/20/23 14:00 Temperature Temperature Source Pulse Rate 84 87 83 Pulse Rate from SpO2 Sensor 84 140 H 83 Respiratory Rate 22 22 25 H Respiratory Effort / Characteristics Blood Pressure 149/82 H 160/76 H Blood Pressure Mean 104 104 Pulse Oximetry 98 92 98 Oxygen Delivery Method Nasal Cannula Nasal Cannula Nasal Cannula Oxygen Flow Rate 2 2 2 Sepsis New/Unexplained Change in Mental Status Sepsis Action Taken by Nursing 02/20/23 14:30 02/20/23 15:00 02/20/23 15:30 Temperature Temperature Source Pulse Rate 91 H 95 H 92 H Pulse Rate from SpO2 Sensor 95 H 96 H 94 H Respiratory Rate 22 28 H 26 H Respiratory Effort / Characteristics Blood Pressure 145/83 H Blood Pressure Mean 103 Pulse Oximetry 92 92 92 Oxygen Delivery Method Nasal Cannula Nasal Cannula Nasal Cannula Oxygen Flow Rate 2 2 2 Sepsis New/Unexplained Change in Mental Status Sepsis Action Taken by Nursing 02/20/23 16:00 02/20/23 16:42 02/20/23 17:00 Temperature Temperature Source Pulse Rate 88 87 Pulse Rate from SpO2 Sensor 94 H 93 H 86 Respiratory Rate 17 18 Respiratory Effort / Characteristics Blood Pressure 134/83 154/80 H Blood Pressure Mean 100 104 Pulse Oximetry 94 94 95 Oxygen Delivery Method Nasal Cannula Nasal Cannula Nasal Cannula Oxygen Flow Rate 2 2 2 Sepsis New/Unexplained Change in Mental Status Sepsis Action Taken by Nursing 02/20/23 17:30 02/20/23 18:18 Temperature Temperature Source Pulse Rate 84 Pulse Rate from SpO2 Sensor 88 Respiratory Rate 22 Respiratory Effort / Characteristics Blood Pressure Blood Pressure Mean Pulse Oximetry 94 Oxygen Delivery Method Nasal Cannula Nasal Cannula Oxygen Flow Rate 2 2 Sepsis New/Unexplained Change in Mental Status Sepsis Action Taken by Nursing General: Well developed well nourished chronically ill-appearing older male who is wearing 2 L nasal cannula but in no acute distress, breathing comfortably on room air. Normal speech HEENT: Normal cephalic atraumatic. Pupils are equal round and reactive to light. Extraocular movements are intact. Oropharynx is pink with moist mucous membranes. No swelling of the mouth lips or tongue. Neck: Supple with a midline trachea. No meningeal signs or stiffness, no JVD or bruits. No Stridor. Chest: Clear to auscultation bilaterally. No wheezes or rhonchi. No increased work of breathing. Heart: Regular rate and rhythm without murmurs or gallops. Abdomen: Soft nontender, nondistended without rebound guarding or rigidity. Extremities: No cyanosis clubbing. There is 2+ bilateral lower extremity edema.. No calf tenderness or assymetry Spine/Back. Non tender to palpation. No CVA tenderness Skin: Good turgor without rashes. Neurologic exam: Cranial nerves two through 12 are intact. Motor and sensation are intact and symmetrical throughout. Course Administered Medications Discontinued Medications Albuterol (Albut/Ipratrop 3mg/0.5mg Neb 3 Ml Vial) 3 ml NEB NOW STA; Protocol Stop: 02/20/23 14:57 Last Admin: 02/20/23 17:40 Dose: 3 ml Documented By: BELGICA Albuterol (Albut/Ipratrop 3mg/0.5mg Neb 3 Ml Vial) Confirm Administered Dose 3 ml .ROUTE .STK-MED ONE Stop: 02/20/23 17:38 Last Admin: 02/20/23 17:40 Dose: Not Given Documented By: BELGICA Furosemide (Furosemide 40 Mg/4 Ml Vial) 80 mg IV ONE STA Stop: 02/20/23 14:42 Last Admin: 02/20/23 15:04 Dose: 80 mg Documented By: JUNIOR Medical Decision Making Differential Diagnosis CHF, renal failure, acute coronary syndrome, electrolyte or metabolic abnormality, infection, arrhythmia, anemia, vascular disease Medical Records Attestation: I reviewed the patient's medical records. Home Medications Current Medication List: was personally reviewed by me Laboratory Data Attestation: I reviewed the patient's lab results. 02/20/23 12:33 Lab Results 02/20/23 02/20/23 02/20/23 Range/Units 12:33 12:33 12:33 WBC 7.51 (4.8-10.8) K/ul RBC 3.34 L (4.70-6.10) M/uL Hgb 9.6 L (14.0-18.0) g/dl Hct 30.9 L (42.0-52.0) % MCV 92.5 (80.0-100.0) fL MCH 28.7 (25.0-34.0) pg MCHC 31.1 L (32.0-36.0) g/dL RDW Std Deviation 54.4 H (36.4-46.3) fL RDW Coeff of Raffaele 16.0 H (11.5-14.5) % Plt Count 107 L (130-400) K/uL MPV 12.0 (9.4-12.4) fL Immature Gran % (Auto) 0.1 % Neut % (Auto) 65.9 % Lymph % (Auto) 22.8 % [place] % (Auto) 7.5 % Eos % (Auto) 3.2 % Baso % (Auto) 0.5 % Neut # (Auto) 4.95 (1.40-6.50) K/uL Lymph # (Auto) 1.71 (1.2-3.4) K/uL [place] # (Auto) 0.56 (0.11-0.59) K/uL Eos # (Auto) 0.24 (0-0.50) K/uL Baso # (Auto) 0.04 (0-0.2) K/uL Immature Gran # (Auto) 0.01 (0.01-0.20) K/uL PT 11.9 (9.0-12.0) Seconds INR 1.1 (0.9-1.1) APTT 28.7 (21.0-31.0) Seconds PTT Ratio 1.0 ABG pH (7.35-7.45) ABG pCO2 (35-46) mmHg ABG pO2 (80-95) mmHg ABG HCO3 (19-24) mmol/L ABG O2 Saturation (90-95) % ABG Base Excess (-9-1.8) mEq/L Alberto Test (Pos) Oxygen Given Sodium 140 (136-145) mmol/L Potassium 4.6 (3.5-5.1) mmol/L Chloride 114 H (98-107) mmol/L Carbon Dioxide 21 (21-32) mmol/L Anion Gap 5 (3-11) BUN 69 H (6-23) mg/dl Creatinine 4.81 H* (0.6-1.4) mg/dl Est Cr Clr Drug Dosing 21.4 ml/min Est GFR ( Amer) 13.6 ml/min Est GFR (Non-Af Amer) 11.8 ml/min BUN/Creatinine Ratio 14.3 (10-20) Glucose 102 H (70-99(Fasting)) mg/dl Calcium 8.8 (8.6-10.3) mg/dl Magnesium (1.7-2.4) mg/dl Total Bilirubin 0.5 (0.2-1.0) mg/dl AST 22 (13-39) U/L ALT 18 (7-52) U/L Alkaline Phosphatase 88 (34-104) U/L Troponin I High Sens 11.3 (0-20) pg/ml B-Natriuretic Peptide (0-100) pg/ml Total Protein 8.0 (6.0-8.3) gm/dl Albumin 3.7 (3.4-5.0) gm/dl Globulin 4.3 H (2.5-4.0) gm/dl Albumin/Globulin Ratio 0.9 (0.9-2) Lipase 89 H (11-82) U/L Procalcitonin (0-0.5) ng/ml SARS-CoV-2 (PCR) (Negative) Influenza Type A (PCR) (Neg) Influenza Type B (PCR) (Neg) RSV (RT-PCR) (Neg) 02/20/23 02/20/23 02/20/23 Range/Units 12:33 13:41 14:14 WBC (4.8-10.8) K/ul RBC (4.70-6.10) M/uL Hgb (14.0-18.0) g/dl Hct (42.0-52.0) % MCV (80.0-100.0) fL MCH (25.0-34.0) pg MCHC (32.0-36.0) g/dL RDW Std Deviation (36.4-46.3) fL RDW Coeff of Raffaele (11.5-14.5) % Plt Count (130-400) K/uL MPV (9.4-12.4) fL Immature Gran % (Auto) % Neut % (Auto) % Lymph % (Auto) % [place] % (Auto) % Eos % (Auto) % Baso % (Auto) % Neut # (Auto) (1.40-6.50) K/uL Lymph # (Auto) (1.2-3.4) K/uL [place] # (Auto) (0.11-0.59) K/uL Eos # (Auto) (0-0.50) K/uL Baso # (Auto) (0-0.2) K/uL Immature Gran # (Auto) (0.01-0.20) K/uL PT (9.0-12.0) Seconds INR (0.9-1.1) APTT (21.0-31.0) Seconds PTT Ratio ABG pH (7.35-7.45) ABG pCO2 (35-46) mmHg ABG pO2 (80-95) mmHg ABG HCO3 (19-24) mmol/L ABG O2 Saturation (90-95) % ABG Base Excess (-9-1.8) mEq/L Alberto Test (Pos) Oxygen Given Sodium (136-145) mmol/L Potassium (3.5-5.1) mmol/L Chloride (98-107) mmol/L Carbon Dioxide (21-32) mmol/L Anion Gap (3-11) BUN (6-23) mg/dl Creatinine (0.6-1.4) mg/dl Est Cr Clr Drug Dosing ml/min Est GFR ( Amer) ml/min Est GFR (Non-Af Amer) ml/min BUN/Creatinine Ratio (10-20) Glucose (70-99(Fasting)) mg/dl Calcium (8.6-10.3) mg/dl Magnesium (1.7-2.4) mg/dl Total Bilirubin (0.2-1.0) mg/dl AST (13-39) U/L ALT (7-52) U/L Alkaline Phosphatase (34-104) U/L Troponin I High Sens (0-20) pg/ml B-Natriuretic Peptide 799 H (0-100) pg/ml Total Protein (6.0-8.3) gm/dl Albumin (3.4-5.0) gm/dl Globulin (2.5-4.0) gm/dl Albumin/Globulin Ratio (0.9-2) Lipase (11-82) U/L Procalcitonin 0.16 (0-0.5) ng/ml SARS-CoV-2 (PCR) NEGATIVE (Negative) Influenza Type A (PCR) Negative (Neg) Influenza Type B (PCR) Negative (Neg) RSV (RT-PCR) Negative (Neg) 02/20/23 02/20/23 Range/Units 14:43 15:57 WBC (4.8-10.8) K/ul RBC (4.70-6.10) M/uL Hgb (14.0-18.0) g/dl Hct (42.0-52.0) % MCV (80.0-100.0) fL MCH (25.0-34.0) pg MCHC (32.0-36.0) g/dL RDW Std Deviation (36.4-46.3) fL RDW Coeff of Raffaele (11.5-14.5) % Plt Count (130-400) K/uL MPV (9.4-12.4) fL Immature Gran % (Auto) % Neut % (Auto) % Lymph % (Auto) % [place] % (Auto) % Eos % (Auto) % Baso % (Auto) % Neut # (Auto) (1.40-6.50) K/uL Lymph # (Auto) (1.2-3.4) K/uL [place] # (Auto) (0.11-0.59) K/uL Eos # (Auto) (0-0.50) K/uL Baso # (Auto) (0-0.2) K/uL Immature Gran # (Auto) (0.01-0.20) K/uL PT (9.0-12.0) Seconds INR (0.9-1.1) APTT (21.0-31.0) Seconds PTT Ratio ABG pH 7.23 L (7.35-7.45) ABG pCO2 50 H (35-46) mmHg ABG pO2 69 L (80-95) mmHg ABG HCO3 21 (19-24) mmol/L ABG O2 Saturation 94.7 (90-95) % ABG Base Excess -6.9 (-9-1.8) mEq/L Alberto Test Pos (Pos) Oxygen Given 2L Sodium (136-145) mmol/L Potassium (3.5-5.1) mmol/L Chloride (98-107) mmol/L Carbon Dioxide (21-32) mmol/L Anion Gap (3-11) BUN (6-23) mg/dl Creatinine (0.6-1.4) mg/dl Est Cr Clr Drug Dosing ml/min Est GFR ( Amer) ml/min Est GFR (Non-Af Amer) ml/min BUN/Creatinine Ratio (10-20) Glucose (70-99(Fasting)) mg/dl Calcium (8.6-10.3) mg/dl Magnesium 1.9 (1.7-2.4) mg/dl Total Bilirubin (0.2-1.0) mg/dl AST (13-39) U/L ALT (7-52) U/L Alkaline Phosphatase (34-104) U/L Troponin I High Sens (0-20) pg/ml B-Natriuretic Peptide (0-100) pg/ml Total Protein (6.0-8.3) gm/dl Albumin (3.4-5.0) gm/dl Globulin (2.5-4.0) gm/dl Albumin/Globulin Ratio (0.9-2) Lipase (11-82) U/L Procalcitonin (0-0.5) ng/ml SARS-CoV-2 (PCR) (Negative) Influenza Type A (PCR) (Neg) Influenza Type B (PCR) (Neg) RSV (RT-PCR) (Neg) Imaging Data Attestation: I personally reviewed and interpreted this imaging study as foll ows: My Impression: Chest x-raythere is a large pleural effusion on the right. He may have a degree of fluid overload Radiologist's Impression: Chest X-Ray 02/20/23 12:33 XR chest 1V portable HISTORY: 63 years-old Male Chest pain, nonspecific acute shortness of breath COMPARISON: 11/17/2022 TECHNIQUE: AP view of the chest FINDINGS: Cardiac silhouette is enlarged. No overt pulmonary edema or pneumothorax. Left large right pleural effusion with right basilar consolidation and right lung volume loss. Bones appear grossly intact. IMPRESSION: 1. Large right pleural effusion with right basilar consolidation/right lung volume loss. 2. Cardiomegaly. ACT 112: Negative or not required by law. The above report was generated using voice recognition software. It may contain grammatical, syntax or spelling errors. Electronically signed by: Saeed Dior M.D. 02/20/2023 1:[address] 02/20/23 14:22 CT chest diagnostic wo con CLINICAL HISTORY: 63 years-old Male with right pleural effusion. Acute shortness of breath with chest and abdominal pain TECHNIQUE: Multiaxial CT images of the chest, abdomen and pelvis were performed without contrast. A dose lowering technique was utilized adhering to the principles of ALARA. COMPARISON: CTA abdomen and pelvis 09/29/2022 FINDINGS: CT CHEST: No thyroid nodule. Lymphadenopathy. Moderate cardiomegaly without pericardial effusion. No thoracic aortic aneurysm. Small left and large right pleural effusions. No pneumothorax. Basilar consolidation with partial collapse involving the majority of the right lower and middle lobes. No obstructing end obronchial lesion identified. The left lung is generally clear. Anasarca. No acute fracture identified. CT ABDOMEN/PELVIS: There is no pneumatosis or pneumoperitoneum. The unenhanced spleen measures up to 17 cm in length. Unremarkable pancreas and adrenal glands. Contracted gallbladder. Cirrhotic liver. Recanalization of the umbilical vein. No hepatic mass identified. Nonobstructing calculi of the kidneys measure up to approximately 5 mm bilaterally. Cortical thinning of the kidneys with mild atrophy. An 8 cm left renal cyst. No ureteral calculi or hydronephrosis. Decompressed urinary bladder with Partida catheter in place. Prostamegaly. Mild inguinal chain adenopathy. Atherosclerosis of the abdominal aorta and branch vessels. Status post placement of an aortobiiliac stent graft. Mild infrarenal abdominal aortic aneurysm, 3.5 cm. The left common iliac artery is dilated, 5.1 cm. No evidence of aneurysm rupture. Small volume of abdominopelvic ascites with anasarca. Normal appendix. No bowel obstruction or bowel wall thickening. No acute fracture. IMPRESSION: 1. Fluid overload manifested by small left and large right pleural effusions with anasarca and small volume of abdominal pelvic ascites. 2. Partial collapse of the right middle and lower lobes. No obstructing endobronchial lesion identified on this exam. 3. Cirrhosis with stigmata of portal venous hypertension. 4. Status post placement of an aortobiiliac stent graft. 5. No bowel obstruction or bowel wall thickening. 6. Colonic diverticulosis. 7. Bilateral nephrolithiasis. ACT 112: Negative or not required by law. Electronically signed by: Saeed Dior M.D. 02/20/2023 5:17 PM ECG Data Attestation: I personally reviewed and interpreted this ECG as follows: Indication: + SOB/dyspnea Rate (beats per minute): 90 Rhythm: + atrial fibrillation ECG Intervals/blocks: + Normal QRS ECG Brandon: + Normal ECG ST segments: + Normal ST segments ECG Findings: + Poor R wave progression and + Other (Low voltage QRS) MDM Narrative This patient comes in as described above. He was seen in room C11. He saw Dr. Guillory's office on and there was concern that he was hypoxemic and fluid overloaded state told him come to the ER. He did have to wait till his daughter got in town so he arrives today. He has gained significant mount of weight over the last several weeks he does look fluid overloaded. He has chronic renal failure as well. IV access established EKG and chest x-ray were obtained as well as cardiac biomarkers and BNP he was COVID tested. He had multiple blood testing obtained he was reassessed frequently. I discussed the case with both the patient and his daughter who is at the bedside. His renal function is worse than it was and he has a 4.8 creatinine. his potassium is not elevated. Chest x-ray shows a large pleural effusion. I do think he needs to be admitted/observed for cardiac and renal work-up and evaluation. He may ultimately need dialysis as well. I did discuss the case with the [facility] and they will be seeing the patient for admission/observation. Continuous cardiac monitoring: Orders placed in EMR for continuous cardiac monitoring: Upon my evaluation the patient is noted to be in chronic A-fib with a rate of 90. Impression & Plan CHF (congestive heart failure), Atrial fibrillation, Current use of terminal carman anticoagulation, Renal failure, Pleural effusion on right, SOB (shortness of breath), Hypoxemia Discharge Plan Visit Data Chief Complaint: Swelling/Edema to Extremity Stated Complaint: OXYGEN 87%, SWOLLEN EXTREMITIES ED Provider: Magdi Dahl Discharge Problem: CHF (congestive heart failure), Atrial fibrillation, Current use of terminal carman anticoagulation, Renal failure, Pleural effusion on right, SOB (shortness of [place] ath), Hypoxemia Patient Disposition: Admitted As Inpatient Discharge Instructions Interventions: ED Discharge Assessment Last Done: 02/20/23 18:18 Forms Stand Alone Forms: My [facility] Prescriptions Prescriptions: No Action losartan-hydrochlorothiazide 100-25 mg tablet 1 tab PO QAM Eliquis 5 mg tablet 5 mg PO DAILY amlodipine 10 mg tablet 10 mg PO QAM metoprolol succinate 50 mg tablet extended release 24 hr 50 mg PO QAM furosemide 40 mg tablet 40 mg PO QAM Referrals Referrals: Unique Frances MD [Primary Care Provider] - CHF (congestive heart failure) Qualifiers: Heart failure type: unspecified Heart failure chronicity: acute Qualified Code(s): I50.9 - Heart failure, unspecified Atrial fibrillation Qualifiers: Atrial fibrillation type: unspecified Qualified Code(s): I48.91 - Unspecified atrial fibrillation Renal failure Qualifiers: Renal failure chronicity: acute on chronic Acute renal failure type: unspecified Chronic kidney disease stage: unspecified stage Qualified Code(s): N17.9 - Acute kidney failure, unspecified
[2023-02-20 12:49] LABS: Basophils # (auto) 0.04 K/uL (0-0.2); Basophils % (auto) 0.5 %; Eosinophils # (auto) 0.24 K/uL (0-0.50); Eosinophils % (auto) 3.2 %; Hematocrit (blood only) 30.9 % (42.0-52.0); Hemoglobin 9.6 g/dl (14.0-18.0); Immature Granulocytes # (auto) 0.01 K/uL (0.01-0.20); Immature Granulocytes % (auto) 0.1 %; Lymphocytes # (auto) 1.71 K/uL (1.2-3.4); Lymphocytes % (auto) 22.8 %; Mean Corpuscular Hemoglobin 28.7 pg (25.0-34.0); Mean Corpuscular Hgb Conc 31.1 g/dL (32.0-36.0); Mean Corpuscular Volume 92.5 fL (80.0-100.0); Monocytes # (auto) 0.56 K/uL (0.11-0.59); Monocytes % (auto) 7.5 %; Neutrophils # (auto) 4.95 K/uL (1.40-6.50); Neutrophils % (auto) 65.9 %; Platelet Count 107 K/uL (130-400); RDW Standard Deviation 54.4 fL (36.4-46.3); Red Blood Count 3.34 M/uL (4.70-6.10); White Blood Count 7.51 K/ul (4.8-10.8)
[2023-02-20 13:15] LABS: INR 1.1 (0.9-1.1); Partial Thromboplastin Time 28.7 Seconds (21.0-31.0); Prothrombin Time 11.9 Seconds (9.0-12.0)
--- NOTE | 2023-02-20 13:28 | XRay Report ---
XR chest 1V portable HISTORY: 63 years-old Male Chest pain, nonspecific acute shortness of breath COMPARISON: 11/17/2022 TECHNIQUE: AP view of the chest FINDINGS: Cardiac silhouette is enlarged. No overt pulmonary edema or pneumothorax. Left large right pleural ef fusion with right basilar consolidation and right lung volume loss. Bones appear grossly intact. IMPRESSION: 1. Large right pleural effusion with right basilar consolidation/right lung volume loss. 2. Cardiomegaly. ACT 112: Negative or not required by law. The above report was generated using voice recognition software. It may contain grammatical, syntax o r spelling errors. Electronically signed by: Saeed Dior M.D. 02/20/2023 1:27 PM
[2023-02-20 13:38] LABS: Albumin Globulin Ratio 0.9 (0.9-2); Albumin Level 3.7 gm/dl (3.4-5.0); BUN Creatinine Ratio 14.3 (10-20); Bilirubin,Total 0.5 mg/dl (0.2-1.0); Calcium 8.8 mg/dl (8.6-10.3); Creatinine Clr Calc Pharmacy 21.4 ml/min; Est GFR (African American) 13.6 ml/min; Est GFR (Non-African American) 11.8 ml/min; Globulin 4.3 gm/dl (2.5-4.0); Potassium 4.6 mmol/L (3.5-5.1); Troponin I High Sensitivity 11.3 pg/ml (0-20)
--- NOTE | 2023-02-20 14:12 | History & Physical Report ---
Date of Service February 20, 2023 Assessment & Plan (1) Acute on chronic renal failure: Plan: -Admit to the PCU on tele -The patient is currently afebrile, hemodynamically stable, and stable on RA -Cr noted to be 4.8 today, baseline is closer to 4.3, likely has been pro gressively increasing since his aneurysm repairs in November -Placing park cath and will start 80 mg IV lasix BID, monitor urine output q6h -If he does not respond to the 80 mg IV BID lasix will consider starting a lasix drip -Nephrology consult placed as patient may need dialysis in the near future, he is agreeable if needed -Avoid nephrotoxic agents -Continue to monitor renal function and electrolytes daily for now -Will obtain UA with Protein:Cr ratio for further evaluation (2) Pleural effusion on right: Plan: -Likely due to his volume overload from renal failure -Pulmonology consulted, will obtain CT of the chest/abd/pelvis WO con for further evaluation -Hold Eliquis for now in preparation for thoracentesis in the near future -Patient is SOB but currently stable on RA, will try a DuoNeb now, if no significant improvement will do a trial of CPAP -Incentive spirometry and flutter therapy, prn O2 to keep SpO2 at or greater then 92% -Will obtain procal and abg for further assessment -Confirmed with Pulm, we will hold chemical DVT PPX today and start it tomorrow (3) Volume overload: Plan: -Patient has gained approximately 46 lbs since his last admission in November -Likely due to worsening renal failure, could have some component of CHF as well with BNP of 799 -Will obtain TTE for further evaluation -Continue IV diuresis and park cath for now (4) Atrial fibrillation: Plan: -Stable -Hold Eliquis for now for future thoracentesis -Continue metoprolol (5) Hypertension: Plan: -Stable -Hold amlodipine and losartan-HCTZ while on IV lasix (6) COPD (chronic obstructive pulmonary disease): Plan: -Patient denies a formal diagnosis but he has been a daily smoker since the age of 13, quit last month -Significant wheezing on lung exam today -DuoNeb trial and will monitor for improvement, if so will continue prn DuoNebs -Goal SpO2 is 88-92% due to likely COPD (7) Psoriasis: Plan: -Uncontrolled -Patient only reports topical treatment -Will start daily betamethasone cream on the worst plaque patches on his extremities, torso, and back -Comment placed to avoid the face Plan The patient was discussed with Dr. Gilbert at the time of the admission Diet: HH, low potassium, 2gm sodium restriction, 1.5L fluid restriction DVT PPX: BL SCD's today; will add Sub-Q heparin starting tomorrow History of Present Illness Chief Complaint: SOB and fluid retention Primary Care Provider: Unique Frances MD Cory is a 63 year old male with COPD, HFpEF, aifb on Eliquis, stage 4 CKD, and HTN, who presented to the [facility] ED on 02/20 due to ongoing fluid retention and SOB since his abdominal aortic aneurysm and left iliac artery repair with Dr. Guillory on 11/30/22. In the ED the patient's vitals were stable. Labs were significant for a platelet count of 107, INR of 1.1, cr of 4.81 (baseline appears to be 4.3), BNP of 799 (no previous result to compare), and lipase of 89. Chest xray showed a large right pleural effusion and cardiomegaly. At the time of the exam the patient was lying in bed in mild respiratory distress with his daughter sitting bedside. Since his abdominal and iliac aneurysm repair with Dr. Guillory in November he has had progressive SOB and weight gain. He states that he can only walk approximately 5-10 feet without having to sit down and rest. He denies recent fever, chills, chest pain, cough, abd pain, nausea, vomiting, dysuria, hematuria, melena, blood bowel movements and recent trauma. He feels as though he is significantly swollen in his BL legs and abdomen. He has been trying to limit his sodium intake but does drink "a lot" of water daily. He and his daughter explain that he was miss-diagnosed with Cirrhosis previously. He did have Hepatitis-C but his daughter states that he completed treatment previously. He had been taking his 40 mg PO lasix daily along with his losartan-HCTZ daily and even increased his dose of lasix from 40 to 80 mg two days ago without relief. He has only been taking his Eliquis daily instead of BID due to the barrett. However, now that he is 63 and will be on Medicare he can afford to take it BID. He states that Dr. Dyson told him he may need dialysis after his aneurysm repairs but the patient never followed up with Dr. Dyson after his procedures. He is urinating frequently but in small amounts, he denies dysuria. He is only using topical creams for his Psoriasis and has never been seen by Dermatology or Rheumatology. If needed, he would want dialysis. He is a Full code and would want his daughter to make medical decisions for him if he could not make them himself. Please refer to Dr. Gilbert's attestation for any changes to the treatment plan Allergies Allergy/AdvReac Type Severity Reaction Status Date / Time No Known Drug Allergies Allergy Unknown Verified 11/30/22 07:36 Home Medications Medication Instructions Recorded Confirmed Type amlodipine 10 mg tablet 10 mg PO QAM 06/02/22 02/20/23 History apixaban 5 mg tablet (Eliquis) 5 mg PO DAILY 06/02/22 02/20/23 History furosemide 40 mg tablet 40 mg PO QAM 06/02/22 02/20/23 History losartan 100 1 tab PO QAM 06/02/22 02/20/23 History mg-hydrochlorothiazide 25 mg tablet metoprolol succinate 50 mg 50 mg PO QAM 06/02/22 02/20/23 History tablet,extended release 24 hr Past Med/Surg History Medical History AAA (abdominal aortic aneurysm) 3.4cm per abdomen/pelvis CTA 09/29/22 Aneurysm artery, iliac L>R (measuring up to 5.1cm) per abdomen/pelvis CTA 09/29/22 Atrial fibrillation [facility], taking Eliquis Chronic active hepatitis C Chronic kidney disease, stage V Cirrhosis COPD (chronic obstructive pulmonary disease) per records, pt denies H/O reduction of closed fracture right arm Hypertension Kidney stones Obesity Psoriasis PVD (peripheral vascular disease) Surgical History H/O umbilical hernia repair History of colonoscopy History of lithotripsy S/P debridement left elbow for cellulitis Family History Other No family history of adverse response to anesthesia Social History Smoking Status: Former smoker Tobacco Type: Cigarettes Cigarettes Per Day: 20; Smoking End Date: 11/01/2022; Second Hand Exposure: No; Hx Alcohol Use: No Hx Substance Use: Yes Last Used Substance Other:: 11/01/2022 Preferred Language: Mauritanian Communication Ability: Effective Hose Maker Required: No Beliefs That Will Affect Care: None Current Living Situation: Spouse Feels Safe at Home: Yes Assistive Devices: None Physical Exam Physical Exam: Physical Exam: General: In no acute distress, stated age, chronically ill-appearing, poor hygiene HEENT: Normocephalic, atraumatic, no scleral icterus, pupils around round, symmetrical, and reactive to light, moist mucus membranes, trachea midline, no thyromegaly Chest/Pulm: Mild respiratory distress with pursed lip and abd breathing, symmetrical chest expansion, decreased breath sounds in the right lower and middle lobes, expiratory wheezing noted in all other lung craven Cardiac: irregular rate and rhythm, no murmurs noted Abdomen: Distended abdomen, normoactive bowel sounds, firm, non-tender to palpation throughout Musculoskeletal: Symmetrical and without signs of acute trauma, upper and lower extremities with full ROM, no atrophy, spasticity, or flaccidity Extremities: Radial, dorsalis pedis, and posterior tibial pulses are intact and symmetrical, 3+ pitting edema noted in the BL LE's Skin: Patient with significant Psoriasis patches overlying his BL LE, UE, torso, back, and face. No ulcers noted Neuro: Alert and oriented to person, place, month, year, and president, no focal defects, CN II-XII tested and intact, finger to nose test negative, no tremors noted Psych: No acute distress, calm and cooperative during the exam Results & Data Results & Data Vital Signs (Past 12 Hours) Vital Signs Temp Pulse Resp BP Pulse Ox O2 Del Method O2 Flow Rate 02/20/23 12:33 80 96 Nasal Cannula 2 02/20/23 12:22 92 H 02/20/23 11:52 36.3 C L 87 26 H 120/70 92 Room Air Laboratory Results Abnormal lab results 02/20/23 02/20/23 02/20/23 Range/Units 12:33 12:33 12:33 RBC 3.34 L (4.70-6.10) M/uL Hgb 9.6 L (14.0-18.0) g/dl Hct 30.9 L (42.0-52.0) % MCHC 31.1 L (32.0-36.0) g/dL RDW Std Deviation 54.4 H (36.4-46.3) fL RDW Coeff of Raffaele 16.0 H (11.5-14.5) % Plt Count 107 L (130-400) K/uL Chloride 114 H (98-107) mmol/L BUN 69 H (6-23) mg/dl Creatinine 4.81 H* (0.6-1.4) mg/dl Glucose 102 H (70-99(Fasting)) mg/dl B-Natriuretic Peptide 799 H (0-100) pg/ml Globulin 4.3 H (2.5-4.0) gm/dl Lipase 89 H (11-82) U/L Diagnostic Findings Chest X-Ray 02/20/23 12:33 XR chest 1V portable HISTORY: 63 years-old Male Chest pain, nonspecific acute shortness of breath COMPARISON: 11/17/2022 TECHNIQUE: AP view of the chest FINDINGS: Cardiac silhouette is enlarged. No overt pulmonary edema or pneumothorax. Left large right pleural effusion with right basilar consolidation and right lung volume loss. Bones appear grossly intact. IMPRESSION: 1. Large right pleural effusion with right basilar consolidation/right lung volume loss. 2. Cardiomegaly. ACT 112: Negative or not required by law. The above report was generated using voice recognition software. It may contain grammatical, syntax or spelling errors. Electronically signed by: Saeed Dior M.D. 02/20/2023 1:27 PM ECG Additional Comments: Atrial fibrillation Low voltage QRS Cannot rule out Anterior infarct , age undetermined Abnormal ECG When compared with ECG of 17-NOV-2022 14:44, No significant change was found Code Status & VTE Plan Code Status Fill code VTE Prophylaxis Plan VTE Prophylaxis will be ordered: Yes Supervising Physician Co-Signing Physician Notes I personally saw and examined the patient. I verified all morejon points and agree with Corona Mckeon PA-C with the following exceptions and/or additions: 63 year old male presents with weight gain and shortness of breath. Progressive worsening since his AAA repair in November. O/E HS RRR, no murmurs, Generalized pitting edema in all 4 extremities and on abdomen. Pursed lip breathing, using accessory muscles, poor inspiratory effort throughout, absent breath sounds at right base, Abdo SNT A/P Acute respiratory failure with hypoxia and hypercapnia - secondary to below, BiPAP PRN and HS. Hypervolemia suspect secondary to CKD - Urine protein/Cr ratio pending. Mild response to Lasix 80mg IV therefore will start on Lasix IV drip @ 240mg/day. If no significant response would ad thiazide diuretic in AM. Consult nephrology. TTE to assess for cardiac involvement but much more likely just progression of his CKD. Strict I&Os. Daily weights. Hold amlodipine/losartan and HCTZ to allow uptitration of diuretics. BiPAP PRN and HS. Right pleural effusion - Hold Eliquis, consult pulmonology to consider thoracentesis COPD - suspect he has underlying COPD given significant improvement with duoneb but less likely true exacerbation. Will treat with budesonide and formoterol BID. Recommend outpatient PFTs as outpatient. PG Care Time/CCT Total # of Minutes Spent Total Time Spent with Patient: Total time spent is greater than 50% in coordination of care (as documented) at patient's floor/unit and/or counseling patient: [place] [address] INT INP/OBS CARE 3/75MIN Patient Type Established Medical Decision Making High Complexity Diagnoses Acute on chronic renal failure N17.9; N18.9 Pleural effusion on right J90 Volume overload E87.70 Atrial fibrillation I48.91 Atrial fibrillation type: unspecified Hypertension I10 COPD (chronic obstructive pulmonary disease) J44.9 Psoriasis L40.9 (4) Atrial fibrillation Atrial fibrillation type: unspecified Qualified Code(s): I48.91 - Unspecified atrial fibrillation
[2023-02-20] MEDS ORDERED: FUROSEMIDE 40 MG/4 ML VIAL IV STA (14:41)
[2023-02-20] MEDS ORDERED: ALBUT/IPRATROP 3MG/0.5MG NEB 3 ML VIAL NEB STA (14:56)
[2023-02-20 15:49] LABS: Influenza A virus by PCR Negative (Neg); Influenza B virus by PCR Negative (Neg); RSV by PCR Negative (Neg); SARS CoV2 RNA(COVID-19) Ceph NEGATIVE (Negative)
[2023-02-20 16:05] LABS: Base Excess ABG -6.9 mEq/L (-9-1.8); HCO3 ABG 21 mmol/L (19-24); Oxygen Saturation ABG 94.7 % (90-95); PCO2 ABG 50 mmHg (35-46); PO2 ABG 69 mmHg (80-95); pH ABG 7.23 (7.35-7.45)
[2023-02-20 17:00] LABS: Allen Test Pos (Pos)
--- NOTE | 2023-02-20 17:20 | CT Scan Report ---
CT chest diagnostic wo con CLINICAL HISTORY: 63 years-old Male with right pleural effusion. Acute shortness of breath with ches t and abdominal pain TECHNIQUE: Multiaxial CT images of the chest, abdomen and pelvis were performed without contrast. A dose lowering technique was utilized adhering to the principles of ALARA. COMPARISON: CTA abdomen and pelvis 09/29/2022 FINDINGS: CT CHEST: No thyroid nodule. Lymphadenopathy. Moderate cardiomegaly without pericardial effusion. No thoracic a ortic aneurysm. Small left and large right pleural effusions. No pneumothorax. Basilar consolidation with partial collapse involving the majority of the right lower and middle lobes. No obstructing endo bronchial lesion identified. The left lung is generally clear. Anasarca. No acute fracture identified . CT ABDOMEN/PELVIS: There is no pneumatosis or pneumoperitoneum. The unenhanced spleen measures up to 17 cm in length. Un remarkable pancreas and adrenal glands. Contracted gallbladder. Cirrhotic liver. Recanalization of th e umbilical vein. No hepatic mass identified. Nonobstructing calculi of the kidneys measure up to margareth roximately 5 mm bilaterally. Cortical thinning of the kidneys with mild atrophy. An 8 cm left renal c yst. No ureteral calculi or hydronephrosis. Decompressed urinary bladder with Partida catheter in place . Prostamegaly. Mild inguinal chain adenopathy. Atherosclerosis of the abdominal aorta and branch ves sels. Status post placement of an aortobiiliac stent graft. Mild infrarenal abdominal aortic aneurysm , 3.5 cm. The left common iliac artery is dilated, 5.1 cm. No evidence of aneurysm rupture. Small volume of abdominopelvic ascites with anasarca. Normal appendix. No bowel obstruction or bowel wall thickening. No acute fracture. IMPRESSION: 1. Fluid overload manifested by small left and large right pleural effusions with anasarca and small volume of abdominal pelvic ascites. 2. Partial collapse of the right middle and lower lobes. No obstructing endobronchial lesion identifi ed on this exam. 3. Cirrhosis with stigmata of portal venous hypertension. 4. Status post placement of an aortobiiliac stent graft. 5. No bowel obstruction or bowel wall thickening. 6. Colonic diverticulosis. 7. Bilateral nephrolithiasis. ACT 112: Negative or not required by law. Electronically signed by: Saeed Dior M.D. 02/20/2023 5:17 PM
[2023-02-20] MEDS ORDERED: ALBUT/IPRATROP 3MG/0.5MG NEB 3 ML VIAL ONE (17:37)
[2023-02-20 19:42] LABS: Appearance Urine Clear (Clear); Bacteria Urine Automated Negative (Negative); Bilirubin Urine Negative (Negative); Blood Urine 3+ (Negative); Color Urine Yellow; Epithelial Cell Urine Auto 20-30 /lpf (0-5); Glucose Urine UA Negative (Negative); Ketones Urine Negative (Negative); Leukocyte Esterase Urine Negative (Negative); Nitrite Urine Negative (Negative); Protein Urine 2+ (Negative); Urobilinogen Urine Negative (Negative)
[2023-02-20] MEDS ORDERED: FORMOTEROL 20 MCG/2 ML VIAL ONE (19:58)
[2023-02-20] MEDS: BETAMETHASONE VAL 0.1% CR 15 GM EXT SCH (20:02)
[2023-02-20] MEDS: BUDESONIDE 0.5 MG/2 ML VIAL (PULMICORT) NEB SCH (20:05)
[2023-02-20] MEDS: FORMOTEROL 20 MCG/2 ML VIAL NEB SCH (20:06)
[2023-02-20] MEDS: FUROSEMIDE 100 MG in DEXTROSE 5% 90 ML IV SCH (20:10)
[2023-02-20] MEDS: LIDOCAINE 2% JELLY 5 ML TUBE EXT PRN (20:19)
[2023-02-20 20:47] LABS: Total Protein Urine Random 118.7 mg/dl (0-11.9)
[2023-02-20 20:52] LABS: Creatinine Urine Random 65.6 mg/dl; Protein Creatinine Ratio Urine 1.8 (0-0.2)
[2023-02-21] MEDS: FUROSEMIDE 100 MG in DEXTROSE 5% 90 ML IV SCH ×2 (05:30→14:39)
[2023-02-21] MEDS: BUDESONIDE 0.5 MG/2 ML VIAL (PULMICORT) NEB SCH ×2 (07:17→19:27)
[2023-02-21] MEDS: FORMOTEROL 20 MCG/2 ML VIAL NEB SCH ×2 (07:17→19:28)
[2023-02-21 07:28] LABS: Allen Test POS (Pos)
[2023-02-21 07:29] LABS: Base Excess ABG -8.5 mEq/L (-9-1.8); HCO3 ABG 19 mmol/L (19-24); Oxygen Saturation ABG > 100.0 % (90-95); PCO2 ABG 47 mmHg (35-46); PO2 ABG 125 mmHg (80-95); pH ABG 7.22 (7.35-7.45)
[2023-02-21 07:44] LABS: Basophils # (auto) 0.03 K/uL (0-0.2); Basophils % (auto) 0.5 %; Eosinophils # (auto) 0.24 K/uL (0-0.50); Eosinophils % (auto) 3.7 %; Hemoglobin 8.6 g/dl (14.0-18.0); Immature Granulocytes # (auto) 0.02 K/uL (0.01-0.20); Immature Granulocytes % (auto) 0.3 %; Lymphocytes # (auto) 1.69 K/uL (1.2-3.4); Lymphocytes % (auto) 25.9 %; Mean Corpuscular Hemoglobin 29.1 pg (25.0-34.0); Mean Corpuscular Hgb Conc 30.7 g/dL (32.0-36.0); Mean Corpuscular Volume 94.6 fL (80.0-100.0); Mean Platelet Volume 12.2 fL (9.4-12.4); Monocytes # (auto) 0.53 K/uL (0.11-0.59); Monocytes % (auto) 8.1 %; Neutrophils # (auto) 4.01 K/uL (1.40-6.50); Neutrophils % (auto) 61.5 %; Platelet Count 84 K/uL (130-400); Platelet Estimate Decreased (Normal); RDW Standard Deviation 55.7 fL (36.4-46.3); Red Blood Count 2.96 M/uL (4.70-6.10); White Blood Count 6.52 K/ul (4.8-10.8)
[2023-02-21 07:55] LABS: Albumin Globulin Ratio 0.9 (0.9-2); Albumin Level 3.4 gm/dl (3.4-5.0); BUN Creatinine Ratio 14.2 (10-20); Bilirubin,Total 0.4 mg/dl (0.2-1.0); Calcium 8.6 mg/dl (8.6-10.3); Creatinine Clr Calc Pharmacy 20.3 ml/min; Est GFR (African American) 12.8 ml/min; Est GFR (Non-African American) 11.1 ml/min; Globulin 3.9 gm/dl (2.5-4.0); INR 1.1 (0.9-1.1); Magnesium 1.8 mg/dl (1.7-2.4); Potassium 4.8 mmol/L (3.5-5.1); Prothrombin Time 12.1 Seconds (9.0-12.0); Total Protein 7.3 gm/dl (6.0-8.3)
[2023-02-21] MEDS: BETAMETHASONE VAL 0.1% CR 15 GM EXT SCH (08:27)
[2023-02-21] MEDS: HEPARIN SOD 5,000 UNIT/0.5 ML VIAL SQ SCH ×3 (08:27→21:12)
[2023-02-21] MEDS: METOPROLOL SUCC 50MG EXT REL TAB PO SCH (08:27)
--- NOTE | 2023-02-21 09:49 | Nephrology Consultation ---
Date of Consultation February 21, 2023 Assessment & Plan (1) Acute kidney injury superimposed on CKD: No emergent indication for dialysis at this time. Non-oliguric. Electrolytes acceptable. Volume status slowly improving. Goals of care reviewed with Cory this AM. We discussed potential future indications for dialysis. I discussed the plan of care with Dr. Henson this AM. Medications appropriately dosed for kidney dysfunction. Losartan and HCTZ held. Renal diet. Document I/O's. Monitor metabolic profile twice daily while on furosemide gtt. (2) CKD (chronic kidney disease) stage 4, GFR 15-29 ml/min: CKD IV A3. Baseline creatinine 4.5 mg/dL. PCR 1.8. Followed by Dr. Dyson. Plans to continue IHD at [facility], if needed. Unfortunately, Dr. Guillory is not available for TDC placement for another week. Will need to discuss with general surgery for TDC if needed prior to this. Will requirement close outpatient follow up for AVF placement. (3) Volume overload: Likely due to kidney dysfunction. Continue Furosemide gtt. Goal is at least 2 L negative in next 24 hours. Add metolazone PRN to encourage urine output. Document strict I/O's. Check daily weights. Renal diet: low sodium and restrict fluid intake to 1.2 L/d. (4) Bilateral pleural effusion: Pulmonary consultation appreciated. Monitor with diuresis. Symptomatically improving. (5) Atrial fibrillation: Anticoagulated with Eliquis. History of Present Illness Reason for Consultation: Worsening CKD, may need dialysis Requesting Physician: Kevin Henson MD Attending Physician: Kevin Henson MD History of Present Illness Mr. Cory Trejo is a 63 year-old male with COPD, HFpEF, atrial fibrillation, vascular disease, and chronic kidney disease. He has followed in the outpatient nephrology clinic with Dr. Dyson. Baseline creatinine has been ~4.5 mg/dL. CKD attributed to vascular disease. PCR 1.8 g/g. Serum albumin 3.4. Cory's last clinic visit was in June and he was unfortunately lost to follow up. He confesses to difficulties following up as scheduled. He has been recovering from AA and L iliac artery repair completed by Dr. Guillory in November. Cory was advised prior to the surgery by Dr. Dyson that he would likely require HD following. This idea has been anxiety provoking. Cory and Dr. Dyson discussed potentially starting in-centre HD at [facility]. Cory lives in [place] and would provide his own transportation. He was not interested in home dialysis options. He has discussed potential AVF placement with Dr. Dyson and Dr. Guillory but vein mapping has not been completed. Cory missed his scheduled follow up with Dr. Dyson to discuss. He unfortunately has been struggling with progressive fluid retention in the interim. Cory reports marked progressive weight gain over the past few months. He states that he has gained >60 lbs. Per EHR records, weight is up 20 kg since November. Cory presented to the hospital with notable and debilitating edema particularly in the lower extremities. He reports some increasing GUSTAFSON and decreased activity tolerance. Evaluation demonstrating a pleural effusion and marked anasarca. Serum creatinine 5.0 mg/dL this AM. Serum electrolytes normal. No chest pain or palpitations reported. Furosemide 80 mg IV provided yesterday evening followed by a gtt at 10 mg/hr. Cory was net negative >1 L this AM. He is non-oliguric. Edema in legs starting to improve per his report this AM. He denied dyspnea at rest. Allergies Allergy/AdvReac Type Severity Reaction Status Date / Time No Known Drug Allergies Allergy Unknown Verified 11/30/22 07:36 Home Medications Medication Instructions Recorded Confirmed Type amlodipine 10 mg tablet 10 mg PO QAM 06/02/22 02/20/23 History apixaban 5 mg tablet (Eliquis) 5 mg PO DAILY 06/02/22 02/20/23 History furosemide 40 mg tablet 40 mg PO QAM 06/02/22 02/20/23 History losartan 100 1 tab PO QAM 06/02/22 02/20/23 History mg-hydrochlorothiazide 25 mg tablet metoprolol succinate 50 mg 50 mg PO QAM 06/02/22 02/20/23 History tablet,extended release 24 hr Patient History Medical History AAA (abdominal aortic aneurysm) 3.4cm per abdomen/pelvis CTA 09/29/22 Acute kidney injury superimposed on CKD Aneurysm artery, 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 (measuring up to 5.1cm) per abdomen/pelvis CTA 09/29/22 Atrial fibrillation [facility], taking Eliquis Bilateral pleural effusion Chronic active hepatitis C Chronic kidney disease, stage V Cirrhosis COPD (chronic obstructive pulmonary disease) per records, pt denies H/O reduction of closed fracture right arm Hypertension Kidney stones Obesity Psoriasis PVD (peripheral vascular disease) Surgical History H/O umbilical hernia repair History of colonoscopy History of lithotripsy S/P debridement left elbow for cellulitis Family History Other No family history of adverse response to anesthesia Social History Smoking Status: Former smoker Tobacco Type: Cigarettes Cigarettes Per Day: 20; Smoking End Date: 11/01/2022; Second Hand Exposure: No; Hx Alcohol Use: No Hx Substance Use: Yes Last Used Substance Other:: 11/01/2022 Preferred Language: Setswana Communication Ability: Effective Lead Cytogenetic Technologist Required: No Beliefs That Will Affect Care: None Current Living Situation: Spouse Feels Safe at Home: Yes Assistive Devices: None Review of Systems Review of Systems: All systems reviewed & are unremarkable except as noted in HPI & below Physical Exam Constitutional: well developed and + morbidly obese; no acute distress Eyes: + anicteric sclerae; pupils not irregular ENMT: Mouth: no oral mucosal abnormality and oral mucous membranes not dry Neck: normal visual inspection, trachea midline and + thick neck Respiratory: + tachypneic; no respiratory distress and no labored breathing Auscultation: + diminished lung sounds and + rales Cardiovascular: Rate/Rhythm: regular rate Heart Sounds: normal S1 and normal S2 Vessels: + JVD Extremities: + edema Musculoskeletal: Extremities: no cyanosis and no clubbing Skin: normal turgor; no jaundice Neurologic: Motor/Sensory: no tremor and no asterixis Psychiatric: Orientation: alert and oriented x 3 Results & Data Vital Signs (Past 12 Hours) Vital Signs Temp Pulse Pulse Resp BP Pulse Ox O2 Del Method 02/21/23 07:32 36.7 C 94 H 19 113/75 98 BiPAP 02/21/23 07:18 98 H 24 98 02/21/23 07:18 98 H 24 98 BiPAP 02/21/23 07:10 97 H 02/21/23 03:03 93 H 23 97 02/21/23 02:27 36.7 C 90 26 H 108/63 98 BiPAP 02/20/23 23:13 83 02/20/23 22:48 36.6 C 88 18 139/77 99 BiPAP 02/20/23 22:10 91 H 18 97 02/20/23 22:20 BiPAP 02/20/23 22:10 36.5 C 100 H 28 H 159/86 H 95 Nasal Cannula O2 Flow Rate FiO2 02/21/23 07:32 40 02/21/23 07:18 30 02/21/23 07:18 30 02/21/23 07:10 02/21/23 03:03 40 02/21/23 02:27 40 02/20/23 23:13 02/20/23 22:48 02/20/23 22:10 40 02/20/23 22:20 02/20/23 22:10 4 Laboratory Results Laboratory Results - last 24 hr 02/20/23 02/20/23 02/20/23 12:33 12:33 12:33 WBC 7.51 RBC 3.34 L Hgb 9.6 L Hct 30.9 L MCV 92.5 MCH 28.7 MCHC 31.1 L RDW Std Deviation 54.4 H RDW Coeff of Raffaele 16.0 H Plt Count 107 L MPV 12.0 Immature Gran % (Auto) 0.1 Neut % (Auto) 65.9 Lymph % (Auto) 22.8 [place] % (Auto) 7.5 Eos % (Auto) 3.2 Baso % (Auto) 0.5 Neut # (Auto) 4.95 Lymph # (Auto) 1.71 [place] # (Auto) 0.56 Eos # (Auto) 0.24 Baso # (Auto) 0.04 Immature Gran # (Auto) 0.01 Platelet Estimate PT 11.9 INR 1.1 APTT 28.7 PTT Ratio 1.0 ABG pH ABG pCO2 ABG pO2 ABG HCO3 ABG O2 Saturation ABG Base Excess Alberto Test Oxygen Given Sodium 140 Potassium 4.6 Chloride 114 H Carbon Dioxide 21 Anion Gap 5 BUN 69 H Creatinine 4.81 H* Est Cr Clr Drug Dosing 21.4 Est GFR ( Amer) 13.6 Est GFR (Non-Af Amer) 11.8 BUN/Creatinine Ratio 14.3 Glucose 102 H Calcium 8.8 Magnesium Total Bilirubin 0.5 AST 22 ALT 18 Alkaline Phosphatase 88 Troponin I High Sens 11.3 B-Natriuretic Peptide Total Protein 8.0 Albumin 3.7 Globulin 4.3 H Albumin/Globulin Ratio 0.9 Lipase 89 H Procalcitonin Urine Color Urine Appearance Urine pH Ur Specific [place] Urine Protein Urine Glucose (UA) Urine Ketones Urine Blood Urine Nitrite Urine Bilirubin Urine Urobilinogen Ur Leukocyte Esterase Urine WBC (Auto) Urine RBC (Auto) U Hyaline Cast (Auto) U Epithel Cells (Auto) Urine Bacteria (Auto) Urine Yeast Ur Random Creatinine U Random Total Protein Protein/Creatinin Ratio SARS-CoV-2 (PCR) Hepatitis C Ab (EIA) Hep C Ab Signal/Cutoff Influenza Type A (PCR) Influenza Type B (PCR) RSV (RT-PCR) 02/20/23 02/20/23 02/20/23 12:33 13:41 14:14 WBC RBC Hgb Hct MCV MCH MCHC RDW Std Deviation RDW Coeff of Raffaele Plt Count MPV Immature Gran % (Auto) Neut % (Auto) Lymph % (Auto) [place] % (Auto) Eos % (Auto) Baso % (Auto) Neut # (Auto) Lymph # (Auto) [place] # (Auto) Eos # (Auto) Baso # (Auto) Immature Gran # (Auto) Platelet Estimate PT INR APTT PTT Ratio ABG pH ABG pCO2 ABG pO2 ABG HCO3 ABG O2 Saturation ABG Base Excess Alberto Test Oxygen Given Sodium Potassium Chloride Carbon Dioxide Anion Gap BUN Creatinine Est Cr Clr Drug Dosing Est GFR ( Amer) Est GFR (Non-Af Amer) BUN/Creatinine Ratio Glucose Calcium Magnesium Total Bilirubin AST ALT Alkaline Phosphatase Troponin I High Sens B-Natriuretic Peptide 799 H Total Protein Albumin Globulin Albumin/Globulin Ratio Lipase Procalcitonin 0.16 Urine Color Urine Appearance Urine pH Ur Specific [place] Urine Protein Urine Glucose (UA) Urine Ketones Urine Blood Urine Nitrite Urine Bilirubin Urine Urobilinogen Ur Leukocyte Esterase Urine WBC (Auto) Urine RBC (Auto) U Hyaline Cast (Auto) U Epithel Cells (Auto) Urine Bacteria (Auto) Urine Yeast Ur Random Creatinine U Random Total Protein Protein/Creatinin Ratio SARS-CoV-2 (PCR) NEGATIVE Hepatitis C Ab (EIA) Hep C Ab Signal/Cutoff Influenza Type A (PCR) Negative Influenza Type B (PCR) Negative RSV (RT-PCR) Negative 02/20/23 02/20/2302/20/23 14:43 15:57 19:25 WBC RBC Hgb Hct MCV MCH MCHC RDW Std Deviation RDW Coeff of Raffaele Plt Count MPV Immature Gran % (Auto) Neut % (Auto) Lymph % (Auto) [place] % (Auto) Eos % (Auto) Baso % (Auto) Neut # (Auto) Lymph # (Auto) [place] # (Auto) Eos # (Auto) Baso # (Auto) Immature Gran # (Auto) Platelet Estimate PT INR APTT PTT Ratio ABG pH 7.23 L ABG pCO2 50 H ABG pO2 69 L ABG HCO3 21 ABG O2 Saturation 94.7 ABG Base Excess -6.9 Alberto Test Pos Oxygen Given 2L Sodium Potassium Chloride Carbon Dioxide Anion Gap BUN Creatinine Est Cr Clr Drug Dosing Est GFR ( Amer) Est GFR (Non-Af Amer) BUN/Creatinine Ratio Glucose Calcium Magnesium 1.9 Total Bilirubin AST ALT Alkaline Phosphatase Troponin I High Sens B-Natriuretic Peptide Total Protein Albumin Globulin Albumin/Globulin Ratio Lipase Procalcitonin Urine Color Yellow Urine Appearance Clear Urine pH 5.0 Ur Specific [place] 1.010 Urine Protein 2+ H Urine Glucose (UA) Negative Urine Ketones Negative Urine Blood 3+ H Urine Nitrite Negative Urine Bilirubin Negative Urine Urobilinogen Negative Ur Leukocyte Esterase Negative Urine WBC (Auto) 1-5 Urine RBC (Auto) 10-30 H U Hyaline Cast (Auto) 5-10 H U Epithel Cells (Auto) 20-30 H Urine Bacteria (Auto) Negative Urine Yeast Not Reportable Ur Random Creatinine U Random Total Protein Protein/Creatinin Ratio SARS-CoV-2 (PCR) Hepatitis C Ab (EIA) Hep C Ab Signal/Cutoff Influenza Type A (PCR) Influenza Type B (PCR) RSV (RT-PCR) 02/20/23 02/21/23 02/21/23 19:25 06:33 06:33 WBC 6.52 RBC 2.96 L Hgb 8.6 L Hct 28.0 L MCV 94.6 MCH 29.1 MCHC 30.7 L RDW Std Deviation 55.7 H RDW Coeff of Raffaele 16.0 H Plt Count 84 L MPV 12.2 Immature Gran % (Auto) 0.3 Neut % (Auto) 61.5 Lymph % (Auto) 25.9 [place] % (Auto) 8.1 Eos % (Auto) 3.7 Baso % (Auto) 0.5 Neut # (Auto) 4.01 Lymph # (Auto) 1.69 [place] # (Auto) 0.53 Eos # (Auto) 0.24 Baso # (Auto) 0.03 Immature Gran # (Auto) 0.02 Platelet Estimate Decreased L PT INR APTT PTT Ratio ABG pH ABG pCO2 ABG pO2 ABG HCO3 ABG O2 Saturation ABG Base Excess Alberto Test Oxygen Given Sodium Potassium Chloride Carbon Dioxide Anion Gap BUN Creatinine Est Cr Clr Drug Dosing Est GFR ( Amer) Est GFR (Non-Af Amer) BUN/Creatinine Ratio Glucose Calcium Magnesium Total Bilirubin AST ALT Alkaline Phosphatase Troponin I High Sens B-Natriuretic Peptide Total Protein Albumin Globulin Albumin/Globulin Ratio Lipase Procalcitonin Urine Color Urine Appearance Urine pH Ur Specific [place] Urine Protein Urine Glucose (UA) Urine Ketones Urine Blood Urine Nitrite Urine Bilirubin Urine Urobilinogen Ur Leukocyte Esterase Urine WBC (Auto) Urine RBC (Auto) U Hyaline Cast (Auto) U Epithel Cells (Auto) Urine Bacteria (Auto) Urine Yeast Ur Random Creatinine 65.6 U Random Total Protein 118.7 H Protein/Creatinin Ratio 1.8 H SARS-CoV-2 (PCR) Hepatitis C Ab (EIA) Pending Hep C Ab Signal/Cutoff Pending Influenza Type A (PCR) Influenza Type B (PCR) RSV (RT-PCR) 02/21/23 02/21/23 02/21/23 06:33 06:33 06:50 WBC RBC Hgb Hct MCV MCH MCHC RDW Std Deviation RDW Coeff of Raffaele Plt Count MPV Immature Gran % (Auto) Neut % (Auto) Lymph % (Auto) [place] % (Auto) Eos % (Auto) Baso % (Auto) Neut # (Auto) Lymph # (Auto) [place] # (Auto) Eos # (Auto) Baso # (Auto) Immature Gran # (Auto) Platelet Estimate PT 12.1 H INR 1.1 APTT PTT Ratio ABG pH 7.22 L ABG pCO2 47 H ABG pO2 125 H ABG HCO3 19 ABG O2 Saturation > 100.0 H ABG Base Excess -8.5 Alberto Test POS Oxygen Given 40% FIO2 Sodium 143 Potassium 4.8 Chloride 114 H Carbon Dioxide 22 Anion Gap 7 BUN 72 H Creatinine 5.06 H* Est Cr Clr Drug Dosing 20.3 Est GFR ( Amer) 12.8 Est GFR (Non-Af Amer) 11.1 BUN/Creatinine Ratio 14.2 Glucose 92 Calcium 8.6 Magnesium 1.8 Total Bilirubin 0.4 AST 20 ALT 16 Alkaline Phosphatase 69 Troponin I High Sens B-Natriuretic Peptide Total Protein 7.3 Albumin 3.4 Globulin 3.9 Albumin/Globulin Ratio 0.9 Lipase Procalcitonin Urine Color Urine Appearance Urine pH Ur Specific [place] Urine Protein Urine Glucose (UA) Urine Ketones Urine Blood Urine Nitrite Urine Bilirubin Urine Urobilinogen Ur Leukocyte Esterase Urine WBC (Auto) Urine RBC (Auto) U Hyaline Cast (Auto) U Epithel Cells (Auto) Urine Bacteria (Auto) Urine Yeast Ur Random Creatinine U Random Total Protein Protein/Creatinin Ratio SARS-CoV-2 (PCR) Hepatitis C Ab (EIA) Hep C Ab Signal/Cutoff Influenza Type A (PCR) Influenza Type B (PCR) RSV (RT-PCR) Diagnostic Findings XR chest 1V portable FINDINGS: Cardiac silhouette is enlarged. No overt pulmonary edema or pneumothorax. Left large right pleural effusion with right basilar consolidation and right lung volume loss. Bones appear grossly intact. IMPRESSION: 1. Large right pleural effusion with right basilar consolidation/right lung volume loss. 2. Cardiomegaly. CT chest abdomen/pelvis wo con COMPARISON: CTA abdomen and pelvis 09/29/2022 FINDINGS: CT CHEST: No thyroid nodule. Lymphadenopathy. Moderate cardiomegaly without pericardial effusion. No thoracic aortic aneurysm. Small left and large right pleural effusions. No pneumothorax. Basilar consolidation with partial collapse involving the majority of the right lower and middle lobes. No obstructing endobronchial lesion identified. The left lung is generally clear. Anasarca. No acute fracture identified. CT ABDOMEN/PELVIS: There is no pneumatosis or pneumoperitoneum. The unenhanced spleen measures up to 17 cm in length. Unremarkable pancreas and adrenal glands. Contracted gallbladder. Cirrhotic liver. Recanalization of the umbilical vein. No hepatic mass identified. Nonobstructing calculi of the kidneys measure up to approximately 5 mm bilaterally. Cortical thinning of the kidneys with mild atrophy. An 8 cm left renal cyst. No ureteral calculi or hydronephrosis. Decompressed urinary bladder with Partida catheter in place. Prostatomegaly. Mild inguinal chain adenopathy. Atherosclerosis of the abdominal aorta and branch vessels. Status post placement of an aortobiiliac stent graft. Mild infrarenal abdominal aortic aneurysm, 3.5 cm. The left common iliac artery is dilated, 5.1 cm. No evidence of aneurysm rupture. Small volume of abdominopelvic ascites with anasarca. Normal appendix. No bowel obstruction or bowel wall thickening. No acute fracture. IMPRESSION: 1. Fluid overload manifested by small left and large right pleural effusions with anasarca and small volume of abdominal pelvic ascites. 2. Partial collapse of the right middle and lower lobes. No obstructing endobronchial lesion identified on this exam. 3. Cirrhosis with stigmata of portal venous hypertension. 4. Status post placement of an aortobiiliac stent graft. 5. No bowel obstruction or bowel wall thickening. 6. Colonic diverticulosis. 7. Bilateral nephrolithiasis. PG Care Time/CCT Total # of Minutes Spent Total Time Spent with Patient: Total time spent is greater than 50% in coordination of care (as documented) at patient's floor/unit and/or counseling patient: Coding Level of Care Code 51819 IN/OBS CONSULT LVL 4,60M Diagnoses Acute kidney injury superimposed on CKD N17.9; N18.9 CKD (chronic kidney disease) stage 4, GFR 15-29 ml/min N18.4 Volume overload E87.70 Bilateral pleural effusion J90 Atrial fibrillation I48.91 Atrial fibrillation type: unspecified (5) Atrial fibrillation Atrial fibrillation type: unspecified Qualified Code(s): I48.91 - Unspecified atrial fibrillation
--- NOTE | 2023-02-21 12:02 | Pulmonary Consultation ---
Date of Consultation February 21, 2023 Assessment & Plan (1) Bilateral pleural effusion: (2) Volume overload: (3) Acute kidney injury superimposed on CKD: (4) Atrial fibrillation: Atrial fibrillation type: unspecified Qualified Code(s): I48.91 - Unspecified atrial fibrillation Plan Reviewed the CT of the chest which does indeed show bilateral effusions, right greater than left. Patient is at a significantly increased risk for bleeding complications related to a pleural procedure given his uremic state, thrombocytopenia, recent Eliquis usage and heparin dosing today. He is profoundly volume overloaded. I suspect he is going to need hemodialysis and possible CRRT for volume removal. He is, however, responding well to a Lasix drip at this time. Appreciate the input from our nephrology colleagues. Echo reviewed. Normal EF. No significant valvular issues. Eliquis will need to washout for the next 48 to 72 hours prior to safely attempting a thoracentesis. There does not appear to be a urgent need for thoracentesis at this time as his oxygen requirements remain stable and he is minimally dyspneic at rest. In fact, his dyspnea appears to be improving with diuresis. Recommend repeat x-ray in the next 24 to 48 hours. Additionally, suspect sleep disordered breathing. Recommend outpatient polysomnography. Okay to use BiPAP as needed while inpatient. History of Present Illness Reason for Consultation: Right pleural effusion Attending Physician: Kevin Henson MD History of Present Illness 63-year-old male with history of diastolic heart failure, A-fib on Eliquis, CKD stage IV and hypertension who presented to the hospital due to increasing weight gain and worsening shortness of breath. Patient notes that he had a aortic aneurysm and left iliac artery repair by Dr. Guillory in November. He was found to be short of breath yesterday. Brought in by family. He is currently saturating in the mid 90s on 4 L of oxygen. He feels significantly less short of breath since starting Lasix drip. He notes the lower extremity edema has improved substantially. His labs are significant for an anemia with a hemoglobin of 8.6, thrombocytopenia with a platelet count of 84,000, BUN of 72 and creatinine of 5.06. He received a dose of heparin 7500 units today for DVT prophylaxis. He had a CT chest and abdomen yesterday which revealed bilateral effusions, right greater than left. Subsegmental collapse of the right middle lobe. Cirrhosis and bilateral nephrolithiasis noted. [id number] smoking history. Quit 6 months ago. Allergies Allergy/AdvReac Type Severity Reaction Status Date / Time No Known Drug Allergies Allergy Unknown Verified 11/30/22 07:36 Home Medications Medication Instructions Recorded Confirmed Type amlodipine 10 mg tablet 10 mg PO QAM 06/02/22 02/20/23 History apixaban 5 mg tablet (Eliquis) 5 mg PO DAILY 06/02/22 02/20/23 History furosemide 40 mg tablet 40 mg PO QAM 06/02/22 02/20/23 History losartan 100 1 tab PO QAM 06/02/22 02/20/23 History mg-hydrochlorothiazide 25 mg tablet metoprolol succinate 50 mg 50 mg PO QAM 06/02/22 02/20/23 History tablet,extended release 24 hr Patient History Medical History (Updated 02/21/23 @ 12:01 by Ant Deluna MD) AAA (abdominal aortic aneurysm) 3.4cm per abdomen/pelvis CTA 09/29/22 Acute kidney injury superimposed on CKD Aneurysm artery, 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 (measuring up to 5.1cm) per abdomen/pelvis CTA 09/29/22 Atrial fibrillation [facility], taking Eliquis Bilateral pleural effusion Chronic active hepatitis C Chronic kidney disease, stage V Cirrhosis COPD (chronic obstructive pulmonary disease) per records, pt denies H/O reduction of closed fracture right arm Hypertension Kidney stones Obesity Psoriasis PVD (peripheral vascular disease) Surgical History H/O umbilical hernia repair History of colonoscopy History of lithotripsy S/P debridement left elbow for cellulitis Family History Other No family history of adverse response to anesthesia Social History Smoking Status: Former smoker Tobacco Type: Cigarettes Cigarettes Per Day: 20; Smoking End Date: 11/01/2022; Second Hand Exposure: No; Hx Alcohol Use: No Hx Substance Use: Yes Last Used Substance Other:: 11/01/2022 Preferred Language: Guyanese Communication Ability: Effective Humidifier Maintenance Worker Required: No Beliefs That Will Affect Care: None Current Living Situation: Spouse Feels Safe at Home: Yes Assistive Devices: None Review of Systems Review of Systems: All systems reviewed & are unremarkable except as noted in HPI & below Physical Exam Physical Exam: Constitutional: Patient appears to be of their stated age. Patient is in no apparent distress. Patient is well-developed. Obese. Eyes: Pupils are equal round and reactive to light. Conjunctivae are normal. Anicteric sclera. Ears nose, mouth and throat: Mallampati class 2. Normal posterior oropharynx. Uvula is midline. Neck: Trachea is midline. Visual inspection is normal. Respiratory: Diminished bilaterally with crackles. Cardiovascular: Regular rate and rhythm. No murmurs. No edema. Gastrointestinal: Normal bowel sounds, soft, nontender and nondistended. No hepatosplenomegaly noted. Musculoskeletal: No cyanosis. Patient is able to move all extremities. Strength is 5 out of 5 in the upper and lower extremities. Skin: No rashes, warm dry and intact. Neurologic: No obvious focal neurological deficits seen. Psychiatric: Alert and oriented x3 with a euthymic affect. Results & Data Results & Data Vital Signs (Past 12 Hours) Vital Signs Temp Pulse Pulse Resp BP Pulse Ox O2 Del Method 02/21/23 11:39 36.7 C 86 19 112/68 95 Nasal Cannula 02/21/23 08:00 Nasal Cannula 02/21/23 07:32 36.7 C 94 H 19 113/75 98 BiPAP 02/21/23 07:18 98 H 24 98 02/21/23 07:18 98 H 24 98 BiPAP 02/21/23 07:10 97 H 02/21/23 03:03 93 H 23 97 02/21/23 02:27 36.7 C 90 26 H 108/63 98 BiPAP O2 Flow Rate FiO2 02/21/23 11:39 4.0 02/21/23 08:00 5 02/21/23 07:32 40 02/21/23 07:18 30 02/21/23 07:18 30 02/21/23 07:10 02/21/23 03:03 40 02/21/23 02:27 40 PG Care Time/CCT Total # of Minutes Spent Total Time Spent with Patient: Total time spent is greater than 50% in coordination of care (as documented) at patient's floor/unit and/or counseling patient: Coding Level of Care Code 99791 INT INP/OBS CARE 3/75MIN Diagnoses Bilateral pleural effusion J90 Volume overload E87.70 Acute kidney injury superimposed on CKD N17.9; N18.9 Atrial fibrillation I48.91 Atrial fibrillation type: unspecified
--- NOTE | 2023-02-21 13:39 | XCELERA ---
[id number] [id number]
--- NOTE | 2023-02-21 14:06 | Electrocardiogram Report ---
Test Reason : Blood Pressure : / mmHG Vent. Rate : 090 BPM Atrial Rate : 094 BPM P-R Int : 000 ms QRS Dur : 090 ms QT Int : 354 ms P-R-T Axes : 000 -29 068 degrees QTc Int : 433 ms Atrial fibrillation Low voltage QRS Cannot rule out Anterior infarct , age undetermined Abnormal ECG When compared with ECG of 17-NOV-2022 14:44, No significant change was found Confirmed by Patrice Kruse ([id number]) on 02/21/2023 2:05:57 PM Referred By: REFERRED SELF Confirmed By:Patrice Kruse
--- NOTE | 2023-02-21 14:16 | Hospitalist Progress Note ---
Date of Service February 21, 2023 Assessment & Plan (1) Acute on chronic renal failure: Plan: This is likely due to volume overload He is on a Lasix drip and is making reasonable amount of urine on the drip Clinically, his fluid overload is improving with improving leg swelling and good diuresis However his creatinine is worse today at 5.06 from 4.8 yesterday. Nephrology on board. Spoke to Dr. Jin Plan is to continue Lasix drip since he is making progress clinically May use metolazone as needed We will monitor for the time being before deciding on dialysis Avoid nephrotoxic agents Continue to monitor renal function and electrolytes. (2) Pleural effusion on right: Plan: -Likely due to his volume overload from renal failure and cirrhosis This could be hepatic hydrothorax since its more pronounced on the right side Pulmonology on board Plan is to continue diuresis with Lasix drip Continue to hold Eliquis in case he needs thoracentesis in near future or vascular access for dialysis Monitor for improvement in hypoxia with diuresis (3) Volume overload: Plan: -Patient has gained approximately 46 lbs since his last admission in November -Likely due to worsening renal failure, could have some component of CHF and cirrhosis -TTE unremarkable with normal EF -Continue IV diuresis and park cath for now (4) Atrial fibrillation: Plan: -Stable -Hold Eliquis for now for future thoracentesis or dialysis access -Continue metoprolol (5) Hypertension: Plan: -Stable -Hold amlodipine and losartan-HCTZ while on IV lasix (6) COPD (chronic obstructive pulmonary disease): Plan: -Patient denies a formal diagnosis but he has been a daily smoker since the age of 13, quit last month -Not wheezing at this time -DuoNeb trial and will monitor for improvement, if so will continue prn DuoNebs -Goal SpO2 is 88-92% due to likely COPD (7) Psoriasis: Plan: -Uncontrolled -Patient only reports topical treatment -Will start daily betamethasone cream on the worst plaque patches on his extremities, torso, and back -Comment placed to avoid the face (8) Acute kidney injury superimposed on CKD: Plan: Please see above (9) Cirrhosis: Plan: Most likely secondary to hep C chronic Patient has ascites, thrombocytopenia, right-sided pleural effusion Monitor platelet count If dropping, will discontinue heparin subcu Plan Diet: HH, low potassium, 2gm sodium restriction, 1.5L fluid restriction DVT PPX: BL SCD's today; on subcu heparin Admission and Anticipated Discharge Date Admission Date: February 20, 2023 Subjective Patient says that he is feeling better today. His leg swelling is improved. He says that he did not like the BiPAP at all overnight although he is breathing better this morning because of being on it at night. Review of Systems Review of Systems: All systems reviewed & are unremarkable except as noted in Subjective Physical Exam Physical Exam: General: Awake, conversant, obese Heart: S1, S2/regular rate and rhythm, no murmur rubs or gallops Lungs: Diminished breath sounds at the bases bilaterally. Normal effort Abdomen: Soft/nontended. Distended belly. No hepatosplenomegaly Extremities: No clubbing/cyanosis. 2+ bilateral pitting edema Behavior: Appropriate, cooperative Results & Data Results & Data Vital Signs (Past 12 Hours) Vital Signs Temp Pulse Pulse Resp BP Pulse Ox O2 Del Method 02/21/23 11:39 36.7 C 86 19 112/68 95 Nasal Cannula 02/21/23 08:00 Nasal Cannula 02/21/23 07:32 36.7 C 94 H 19 113/75 98 BiPAP 02/21/23 07:18 98 H 24 98 02/21/23 07:18 98 H 24 98 BiPAP 02/21/23 07:10 97 H 02/21/23 03:03 93 H 23 97 02/21/23 02:27 36.7 C 90 26 H 108/63 98 BiPAP O2 Flow Rate FiO2 02/21/23 11:39 4.0 02/21/23 08:00 5 02/21/23 07:32 40 02/21/23 07:18 30 02/21/23 07:18 30 02/21/23 07:10 02/21/23 03:03 40 02/21/23 02:27 40 Laboratory Results Abnormal lab results 02/20/23 02/20/23 02/20/23 Range/Units 15:57 19:25 19:25 RBC (4.70-6.10) M/uL Hgb (14.0-18.0) g/dl Hct (42.0-52.0) % MCHC (32.0-36.0) g/dL RDW Std Deviation (36.4-46.3) fL RDW Coeff of Raffaele (11.5-14.5) % Plt Count (130-400) K/uL Platelet Estimate (Normal) PT (9.0-12.0) Seconds ABG pH 7.23 L (7.35-7.45) ABG pCO2 50 H (35-46) mmHg ABG pO2 69 L (80-95) mmHg ABG O2 Saturation (90-95) % Chloride (98-107) mmol/L BUN (6-23) mg/dl Creatinine (0.6-1.4) mg/dl Urine Protein 2+ H (Negative) Urine Blood 3+ H (Negative) Urine RBC (Auto) 10-30 H (0-4) /hpf U Hyaline Cast (Auto) 5-10 H (0-5) /lpf U Epithel Cells (Auto) 20-30 H (0-5) /lpf U Random Total Protein 118.7 H (0-11.9) mg/dl Protein/Creatinin Ratio 1.8 H (0-0.2) 02/21/23 02/21/23 02/21/23 Range/Units 06:33 06:33 06:33 RBC 2.96 L (4.70-6.10) M/uL Hgb 8.6 L (14.0-18.0) g/dl Hct 28.0 L (42.0-52.0) % MCHC 30.7 L (32.0-36.0) g/dL RDW Std Deviation 55.7 H (36.4-46.3) fL RDW Coeff of Raffaele 16.0 H (11.5-14.5) % Plt Count 84 L (130-400) K/uL Platelet Estimate Decreased L (Normal) PT 12.1 H (9.0-12.0) Seconds ABG pH (7.35-7.45) ABG pCO2 (35-46) mmHg ABG pO2 (80-95) mmHg ABG O2 Saturation (90-95) % Chloride 114 H (98-107) mmol/L BUN 72 H (6-23) mg/dl Creatinine 5.06 H* (0.6-1.4) mg/dl Urine Protein (Negative) Urine Blood (Negative) Urine RBC (Auto) (0-4) /hpf U Hyaline Cast (Auto) (0-5) /lpf U Epithel Cells (Auto) (0-5) /lpf U Random Total Protein (0-11.9) mg/dl Protein/Creatinin Ratio (0-0.2) 02/21/23 Range/Units 06:50 RBC (4.70-6.10) M/uL Hgb (14.0-18.0) g/dl Hct (42.0-52.0) % MCHC (32.0-36.0) g/dL RDW Std Deviation (36.4-46.3) fL RDW Coeff of Raffaele (11.5-14.5) % Plt Count (130-400) K/uL Platelet Estimate (Normal) PT (9.0-12.0) Seconds ABG pH 7.22 L (7.35-7.45) ABG pCO2 47 H (35-46) mmHg ABG pO2 125 H (80-95) mmHg ABG O2 Saturation > 100.0 H (90-95) % Chloride (98-107) mmol/L BUN (6-23) mg/dl Creatinine (0.6-1.4) mg/dl Urine Protein (Negative) Urine Blood (Negative) Urine RBC (Auto) (0-4) /hpf U Hyaline Cast (Auto) (0-5) /lpf U Epithel Cells (Auto) (0-5) /lpf U Random Total Protein (0-11.9) mg/dl Protein/Creatinin Ratio (0-0.2) Diagnostic Findings Chest CT 02/20/23 14:22 CT chest diagnostic wo con CLINICAL HISTORY: 63 years-old Male with right pleural effusion. Acute shor tness of breath with chest and abdominal pain TECHNIQUE: Multiaxial CT images of the chest, abdomen and pelvis were performed without contrast. A dose lowering technique was utilized adhering to the principles of ALARA. COMPARISON: CTA abdomen and pelvis 09/29/2022 FINDINGS: CT CHEST: No thyroid nodule. Lymphadenopathy. Moderate cardiomegaly without pericardial effusion. No thoracic aortic aneurysm. Small left and large right pleural effusions. No pneumothorax. Basilar consolidation with partial collapse involving the majority of the right lower and middle lobes. No obstructing endo bronchial lesion identified. The left lung is generally clear. Anasarca. No acute fracture identified. CT ABDOMEN/PELVIS: There is no pneumatosis or pneumoperitoneum. The unenhanced spleen measures up to 17 cm in length. Unremarkable pancreas and adrenal glands. Contracted gallbladder. Cirrhotic liver. Recanalization of the umbilical vein. No hepatic mass identified. Nonobstructing calculi of the kidneys measure up to approximately 5 mm bilaterally. Cortical thinning of the kidneys with mild atrophy. An 8 cm left renal cyst. No ureteral calculi or hydronephrosis. Decompressed urinary bladder with Park catheter in place. Prostamegaly. Mild inguinal chain adenopathy. Atherosclerosis of the abdominal aorta and branch vessels. Status post placement of an aortobiiliac stent graft. Mild infrarenal abdominal aortic aneurysm, 3.5 cm. The left common iliac artery is dilated, 5.1 cm. No evidence of aneurysm rupture. Small volume of abdominopelvic ascites with anasarca. Normal appendix. No bowel obstruction or bowel wall thickening. No acute fracture. IMPRESSION: 1. Fluid overload manifested by small left and large right pleural effusions with anasarca and small volume of abdominal pelvic ascites. 2. Partial collapse of the right middle and lower lobes. No obstructing endobronchial lesion identified on this exam. 3. Cirrhosis with stigmata of portal venous hypertension. 4. Status post placement of an aortobiiliac stent graft. 5. No bowel obstruction or bowel wall thickening. 6. Colonic diverticulosis. 7. Bilateral nephrolithiasis. ACT 112: Negative or not required by law. Electronically signed by: Saeed Dior M.D. 02/20/2023 5:17 PM PG Care Time/CCT Total # of Minutes Spent Total Time Spent with Patient: Total time spent is greater than 50% in coordination of care (as documented) at patient's floor/unit and/or counseling patient: Coding Level of Care Code 70724 SUB INP/OBS CARE 3/50MIN Diagnoses Acute on chronic renal failure N17.9; N18.9 Pleural effusion on right J90 Volume overload E87.70 Atrial fibrillation I48.91 Atrial fibrillation type: unspecified Hypertension I10 COPD (chronic obstructive pulmonary disease) J44.9 Psoriasis L40.9 Acute kidney injury superimposed on CKD N17.9; N18.9 Cirrhosis K74.60 (4) Atrial fibrillation Atrial fibrillation type: unspecified Qualified Code(s): I48.91 - Unspecified atrial fibrillation
[2023-02-22] MEDS: FUROSEMIDE 100 MG in DEXTROSE 5% 90 ML IV SCH ×2 (01:06→10:22)
[2023-02-22] MEDS: BETAMETHASONE VAL 0.1% CR 15 GM EXT SCH (07:56)
[2023-02-22] MEDS: METOPROLOL SUCC 50MG EXT REL TAB PO SCH (07:57)
[2023-02-22 08:17] LABS: INR 1.1 (0.9-1.1); Prothrombin Time 12.2 Seconds (9.0-12.0)
[2023-02-22 08:33] LABS: Albumin Globulin Ratio 0.9 (0.9-2); Albumin Level 3.5 gm/dl (3.4-5.0); BUN Creatinine Ratio 13.9 (10-20); Bilirubin,Total 0.5 mg/dl (0.2-1.0); Calcium 8.7 mg/dl (8.6-10.3); Creatinine Clr Calc Pharmacy 18.6 ml/min; Est GFR (African American) 11.7 ml/min; Est GFR (Non-African American) 10.1 ml/min; Ferritin 17.8 ng/ml (8-388); Magnesium 1.8 mg/dl (1.7-2.4); Potassium 4.8 mmol/L (3.5-5.1); Total Protein 7.5 gm/dl (6.0-8.3)
[2023-02-22 08:57] LABS: Hematocrit (blood only) 29.9 % (42.0-52.0); Hemoglobin 9.2 g/dl (14.0-18.0); Mean Corpuscular Hemoglobin 28.9 pg (25.0-34.0); Mean Corpuscular Hgb Conc 30.8 g/dL (32.0-36.0); Mean Platelet Volume 11.8 fL (9.4-12.4); Platelet Count 79 K/uL (130-400); RDW Coefficient of Variation 15.8 % (11.5-14.5); RDW Standard Deviation 54.4 fL (36.4-46.3); Red Blood Count 3.18 M/uL (4.70-6.10); White Blood Count 6.79 K/ul (4.8-10.8)
[2023-02-22 08:58] LABS: Basophils # (auto) 0.03 K/uL (0-0.2); Basophils % (auto) 0.4 %; Eosinophils # (auto) 0.23 K/uL (0-0.50); Eosinophils % (auto) 3.4 %; Immature Granulocytes # (auto) 0.02 K/uL (0.01-0.20); Immature Granulocytes % (auto) 0.3 %; Lymphocytes # (auto) 1.88 K/uL (1.2-3.4); Lymphocytes % (auto) 27.7 %; Monocytes % (auto) 8.8 %; Neutrophils # (auto) 4.03 K/uL (1.40-6.50); Neutrophils % (auto) 59.4 %
[2023-02-22] MEDS ORDERED: EPOETIN ALFA 10,000 UNITS/ML VIAL SQ ONE (09:45)
--- NOTE | 2023-02-22 09:45 | Nephrology Progress Note ---
Date of Service February 22, 2023 Assessment & Plan (1) Acute kidney injury superimposed on CKD: Plan: No emergent indication for dialysis at this time. Non-oliguric. Electrolytes acceptable. Volume status slowly improving. Goals of care reviewed with Cory this AM. We discussed potential future indications for dialysis. Medications appropriately dosed for kidney dysfunction. Losartan and HCTZ held. Renal diet. Document I/O's. Monitor metabolic profile twice daily while on furosemide gtt. (2) CKD (chronic kidney disease) stage 4, GFR 15-29 ml/min: Plan: CKD IV A3. Baseline creatinine 4.5 mg/dL. PCR 1.8. Followed by Dr. Dyson. Plans to continue IHD at [facility], if needed. Unfortunately, Dr. Guillory is not available for TDC placement for another week. Will need to discuss with general surgery for TDC if needed prior to this. Will requirement close outpatient follow up for AVF placement. (3) Volume overload: Plan: Likely due to kidney dysfunction. Goal is to encourage 1.5-2 L negative in next 24 hours. Consider converting from Furosemide gtt this afternoon, if volume status continues to improve. Document strict I/O's. Check daily weights. Renal diet: low sodium and restrict fluid intake to 1.2 L/d. (4) Bilateral pleural effusion: Plan: Pulmonary consultation appreciated. Monitor with diuresis. Symptomatically improving. (5) Atrial fibrillation: Plan: Anticoagulated with Eliquis. Admission and Anticipated Discharge Date Admission Date: February 20, 2023 Subjective No acute events overnight. Cory is feeling much better this AM. Edema slowly improving. Denies notable dyspnea. No chest pain or palpitations. Review of Systems Review of Systems: All systems reviewed & are unremarkable except as noted in HPI & below Physical Exam Constitutional: well developed and + morbidly obese; no acute distress Eyes: + anicteric sclerae; pupils not irregular Neck: normal visual inspection, trachea midline and + thick neck Respiratory: normal respiratory effort Auscultation: + diminished lung sounds Cardiovascular: Rate/Rhythm: regular rate Heart Sounds: normal S1 and nor mal S2 Vessels: + JVD Extremities: + edema Musculoskeletal: Extremities: no cyanosis and no clubbing Skin: normal turgor; no jaundice Neurologic: Motor/Sensory: no tremor and no asterixis Psychiatric: Orientation: alert and oriented x 3 Results & Data Vital Signs (Past 12 Hours) Vital Signs Temp Pulse Pulse Resp BP Pulse Ox O2 Del Method 02/22/23 07:29 36.4 C L 82 20 130/84 100 Nasal Cannula 02/22/23 03:00 36.4 C L 83 20 123/80 97 BiPAP 02/22/23 02:12 88 24 96 02/21/23 22:50 36.9 C 90 20 123/80 96 BiPAP 02/21/23 22:39 88 22 93 O2 Flow Rate FiO2 02/22/23 07:29 4 02/22/23 03:00 30 02/22/23 02:12 30 02/21/23 22:50 30 02/21/23 22:39 30 Laboratory Results Laboratory Results - last 24 hr 02/22/23 02/22/23 02/22/23 07:16 07:16 07:16 WBC 6.79 RBC 3.18 L Hgb 9.2 L Hct 29.9 L MCV 94.0 MCH 28.9 MCHC 30.8 L RDW Std Deviation 54.4 H RDW Coeff of Raffaele 15.8 H Plt Count 79 L MPV 11.8 Immature Gran % (Auto) 0.3 Neut % (Auto) 59.4 Lymph % (Auto) 27.7 [place] % (Auto) 8.8 Eos % (Auto) 3.4 Baso % (Auto) 0.4 Neut # (Auto) 4.03 Lymph # (Auto) 1.88 [place] # (Auto) 0.60 H Eos # (Auto) 0.23 Baso # (Auto) 0.03 Immature Gran # (Auto) 0.02 PT 12.2 H INR 1.1 Sodium 142 Potassium 4.8 Chloride 112 H Carbon Dioxide 24 Anion Gap 6 BUN 76 H Creatinine 5.47 H* D Est Cr Clr Drug Dosing 18.6 Est GFR ( Amer) 11.7 Est GFR (Non-Af Amer) 10.1 BUN/Creatinine Ratio 13.9 Glucose 89 Calcium 8.7 Magnesium 1.8 Iron 34 L TIBC 398 Unsaturated IBC 364 H Transferrin % Sat 9 L Ferritin 17.8 Total Bilirubin 0.5 AST 20 ALT 17 Alkaline Phosphatase 70 Total Protein 7.5 Albumin 3.5 Globulin 4.0 Albumin/Globulin Ratio 0.9 PG Care Time/CCT Total # of Minutes Spent Total Time Spent with Patient: Total time spent is greater than 50% in coordination of care (as documented) at patient's floor/unit and/or counseling patient: Coding Level of Care Code 07515 SUB INP/OBS CARE 350MIN Diagnoses Acute kidney injury superimposed on CKD N17.9; N18.9 CKD (chronic kidney disease) stage 4, GFR 15-29 ml/min N18.4 Volume overload E87.70 Bilateral pleural effusion J90 Atrial fibrillation I48.91 Atrial fibrillation type: unspecified (5) Atrial fibrillation Atrial fibrillation type: unspecified Qualified Code(s): I48.91 - Unspecified atrial fibrillation
[2023-02-22] MEDS ORDERED: IRON SUCROSE 200 MG in 0.9 % SODIUM CHLORIDE 100 ML IV SCH (10:00)
--- NOTE | 2023-02-22 12:28 | Hospitalist Progress Note ---
Date of Service February 22, 2023 Assessment & Plan (1) Acute on chronic renal failure: Plan: This is likely leading to volume overload He is on a Lasix drip and has good urine output. Maintaining negative ins/out Clinically, his fluid overload is improving with improving leg swelling and good diuresis However his creatinine is worse today at 4.82-->5.06--> 5.4 Nephrology on board. Planning to watch and wait. No dialysis yet. Nephrology plans to switch Lasix drip to IV Lasix push We will monitor for the time being before deciding on dialysis Avoid nephrotoxic agents Continue to monitor renal function and electrolytes. (2) Pleural effusion on right: Plan: -Likely due to his volume overload from renal failure and cirrhosis This could be hepatic hydrothorax since its more pronounced on the right side Pulmonology on board Plan is to continue diuresis with Lasix drip Continue to hold Eliquis in case he needs thoracentesis in near future or vascular access for dialysis Monitor for improvement in hypoxia with diuresis (3) Volume overload: Plan: -Patient has gained approximately 46 lbs since his last admission in November -Likely due to worsening renal failure, could have some component of CHF and cirrhosis -TTE unremarkable with normal EF -Continue IV diuresis and park cath for now (4) Atrial fibrillation: Plan: -Stable -Hold Eliquis for now in anticipation of future thoracentesis or dialysis access -Continue metoprolol (5) Hypertension: Plan: -Stable -Hold amlodipine and losartan-HCTZ while on IV lasix (6) COPD (chronic obstructive pulmonary disease): Plan: -Patient denies a formal diagnosis but he has been a daily smoker since the age of 13, quit last month -Not wheezing at this time -DuoNeb trial and will monitor for improvement, if so will continue prn DuoNebs -Goal SpO2 is 88-92% due to likely COPD (7) Psoriasis: Plan: -Uncontrolled -Patient only reports topical treatment -Will start daily betamethasone cream on the worst plaque patches on his extremities, torso, and back -Comment placed to avoid the face (8) Acute kidney injury superimposed on CKD: Plan: Please see above (9) Cirrhosis: Plan: Most likely secondary to hep C chronic Patient has ascites, thrombocytopenia, right-sided pleural effusion Monitor platelet count If dropping, will discontinue heparin subcu Plan Diet: HH, low potassium, 2gm sodium restriction, 1.5L fluid restriction DVT PPX: BL SCD's today; on subcu heparin Admission and Anticipated Discharge Date Admission Date: February 20, 2023 Subjective Patient is feeling much better overall today. He is sitting at the edge of the bed. He says that his leg swelling is going down. Review of Systems Review of Systems: All systems reviewed & are unremarkable except as noted in Subjective Physical Exam Physical Exam: General: Awake, conversant, obese Heart: S1, S2/regular rate and rhythm, no murmur rubs or gallops Lungs: Diminished breath sounds at the bases bilaterally. Normal effort Abdomen: Soft/nontended. His belly is less distended today. No hepatosplenomegaly Extremities: No clubbing/cyanosis. 2+ bilateral pitting edema improving Behavior: Appropriate, cooperative Results & Data Results & Data Vital Signs (Past 12 Hours) Vital Signs Temp Pulse Pulse Resp BP Pulse Ox O2 Del Method 02/22/23 11:40 37.3 C 80 20 131/90 96 Nasal Cannula 02/22/23 09:30 Nasal Cannula 02/22/23 07:29 36.4 C L 82 20 130/84 100 Nasal Cannula 02/22/23 03:00 36.4 C L 83 20 123/80 97 BiPAP 02/22/23 02:12 88 24 96 O2 Flow Rate FiO2 02/22/23 11:40 5 02/22/23 09:30 02/22/23 07:29 4 02/22/23 03:00 30 02/22/23 02:12 30 Laboratory Results Abnormal lab results 02/22/23 02/22/23 02/22/23 Range/Units 07:16 07:16 07:16 RBC 3.18 L (4.70-6.10) M/uL Hgb 9.2 L (14.0-18.0) g/dl Hct 29.9 L (42.0-52.0) % MCHC 30.8 L (32.0-36.0) g/dL RDW Std Deviation 54.4 H (36.4-46.3) fL RDW Coeff of Raffaele 15.8 H (11.5-14.5) % Plt Count 79 L (130-400) K/uL [place] # (Auto) 0.60 H (0.11-0.59) K/uL PT 12.2 H (9.0-12.0) Seconds Chloride 112 H (98-107) mmol/L BUN 76 H (6-23) mg/dl Creatinine 5.47 H* D (0.6-1.4) mg/dl Iron 34 L (35-175) mcg/dl Unsaturated IBC 364 H (155-355) mcg/dl Transferrin % Sat 9 L (20-50) % PG Care Time/CCT Total # of Minutes Spent Total Time Spent with Patient: Total time spent is greater than 50% in coordination of care (as documented) at patient's floor/unit and/or counseling patient: Coding Level of Care Code 34129 SUB INP/OBS CARE 235MIN Diagnoses Acute on chronic renal failure N17.9; N18.9 Pleural effusion on right J90 Volume overload E87.70 Atrial fibrillation I48.91 Atrial fibrillation type: unspecified Hypertension I10 COPD (chronic obstructive pulmonary disease) J44.9 Psoriasis L40.9 Acute kidney injury superimposed on CKD N17.9; N18.9 Cirrhosis K74.60 (4) Atrial fibrillation Atrial fibrillation type: unspecified Qualified Code(s): I48.91 - Unspecified atrial fibrillation
[2023-02-22] MEDS: HEPARIN SOD 5,000 UNIT/0.5 ML VIAL SQ SCH ×3 (14:53→20:29)
--- NOTE | 2023-02-22 16:38 | Procedure Note ---
Procedure Note Date of Service February 22, 2023 Note Procedure: Diagnostic therapeutic ultrasound-guided catheter thoracentesis, right Fulfillment Representative: Dr. Moisés Grace Indication: Pleural effusion Consent: Signed by patient and verified with timeout prior to procedure Anesthesia: 8 mL's 1% lidocaine without epinephrine local. Procedure: Consent was verified and timeout performed. Appropriate imaging studies were reviewed prior to the procedure. Patient was placed in a seated position and limited thoracic ultrasound was performed of the right chest. Large effusion was identified with compressive atelectasis. Site appropriate for thoracentesis was selected. The skin was prepped and draped in normal sterile fashion. Lidocaine was used for local analgesia. Fluid was aspirated via the finder needle. A small skin jenna was made with the scalpel and the catheter over the needle apparatus was advanced over the rib into the pleural space. Using the syringe one-way valve system, a total of 1700 mL's of jeffrey slightly opaque fluid was removed. Procedure was terminated due to removal of large amount of fluid. The catheter was removed and observed to be intact. A sterile dressing was applied. Post procedure chest x-ray was ordered. Post procedure ultrasound was performed which revealed small amount of residual pleural fluid. Lung sliding was noted Fluid was sent for cytology, cell count differential, Gram stain and culture, LDH, glucose, total protein, and pH. The patient tolerated the procedure well without obvious complication Coding CPT Codes Pulmonary/Thoracic - Pulmonary and Thoracic: 98921 Thoracentesis w imaging ([id number]) [facility] Procedure Codes (Charges) Pulmonary/Thoracic Procedure 1: Pulmonary and Thoracic: 53848 Thoracentesis w imaging
--- NOTE | 2023-02-22 16:44 | Pulmonology Progress Note ---
Date of Service February 22, 2023 Assessment & Plan (1) Bilateral pleural effusion: (2) Acute kidney injury superimposed on CKD: (3) Volume overload: (4) Hypoxemia: Plan Impression: 63-year-old male with morbid obesity and acute on chronic kidney disease with anasarca and volume overload. His anticoagulation has now been held for greater than 24 hours and he continues to be symptomatic. Thoracentesis is indicated. Recommendations: 1. Pleural effusion: Patient will undergo ultrasound-guided catheter thoracentesis on the right. Fluid will be sent for routine microbiologic as well as cytologic analysis. 2. Advised the patient that serial thoracentesis is unlikely to be effective in managing his volume. Defer to nephrology and his primary service. His creatinine did increase today. Unclear if he will require renal replacement therapy. 3. Acute on chronic hypercarbic respiratory failure: The patient is acidemic at baseline. His degree of acidosis is not fully explained by his elevated CO2. He likely has undiagnosed/untreated sleep disordered breathing/obesity hypoventilation syndrome. Recommend nocturnal positive airway pressure at bilevel 10/5 but again this will not likely correct his acid-base status and he may require bicarb or renal replacement. Per nephrology. We will continue to follow with you. Feel free to contact us with questions or concerns. Admission and Anticipated Discharge Date Admission Date: February 20, 2023 Subjective Patient seen and examined. EMR reviewed. Discussed with off going chemist water purification. The patient continues to complain of significant shortness of breath with any significant physical activity. He is not coughing or expectorating phlegm. He continues on his IV Lasix. Nephrology is holding off on diuresis at the present time. Review of Systems Review of Systems: All systems reviewed & are unremarkable except as noted in Subjective Physical Exam Constitutional: WD/WN, vitals as above Neck: trachea midline, no thyromegaly Respiratory: no respiratory distress, no labored breathing and not tachypneic Auscultation: + diminished lung sounds Diminished breath sounds at the right lung base with dullness to percussion Cardiovascular: RRR, no murmur, no edema Gastrointestinal (Abdomen): normal bowel sounds, soft, nontender, no hepatosplenomegaly Musculoskeletal: Extremities: extremities normal to inspection Skin: no rashes, warm and dry Neurologic: Nonfocal exam Lymphatic: no cervical lymphadenopathy Results & Data Results & Data Vital Signs (Past 12 Hours) Vital Signs Temp Pulse Resp BP Pulse Ox O2 Del Method O2 Flow Rate 02/22/23 15:42 36.7 C 100 H 20 152/98 H 100 Room Air 02/22/23 11:40 37.3 C 80 20 131/90 96 Nasal Cannula 5 02/22/23 09:30 Nasal Cannula 02/22/23 07:29 36.4 C L 82 20 130/84 100 Nasal Cannula 4 Critical Care Results & Data Vital Signs (Past 12 Hours) Vital Signs Temp Pulse Resp BP Pulse Ox O2 Del Method O2 Flow Rate 02/22/23 15:42 36.7 C 100 H 20 152/98 H 100 Room Air 02/22/23 11:40 37.3 C 80 20 131/90 96 Nasal Cannula 5 02/22/23 09:30 Nasal Cannula 02/22/23 07:29 36.4 C L 82 20 130/84 100 Nasal Cannula 4 Lab & Micro Results (Past 24 Hours) RBC 3.18 M/uL (4.70-6.10) L 02/22/23 WBC 6.79 K/ul (4.8-10.8) 02/22/23 Hgb 9.2 g/dl (14.0-18.0) L 02/22/23 Hct 29.9 % (42.0-52.0) L 02/22/23 MCV 94.0 fL (80.0-100.0) 02/22/23 MCH 28.9 pg (25.0-34.0) 02/22/23 MCHC 30.8 g/dL (32.0-36.0) L 02/22/23 RDW Standard Deviation 54.4 fL (36.4-46.3) H 02/22/23 RDW Coefficient of Variation 15.8 % (11.5-14.5) H 02/22/23 Plt Count 79 K/uL (130-400) L 02/22/23 MPV 11.8 fL (9.4-12.4) 02/22/23 Neutrophils (%) (Auto) 59.4 % 02/22/23 Lymphocytes (%) (Auto) 27.7 % 02/22/23 Monocytes # (Auto) 0.60 K/uL (0.11-0.59) H 02/22/23 Eosinophils # (Auto) 0.23 K/uL (0-0.50) 02/22/23 Immature Granulocyte % (Auto) 0.3 % 02/22/23 Neutrophils # (Auto) 4.03 K/uL (1.40-6.50) 02/22/23 Lymphocytes # (Auto) 1.88 K/uL (1.2-3.4) 02/22/23 Monocytes # (Auto) 0.60 K/uL (0.11-0.59) H 02/22/23 Eosinophils # (Auto) 0.23 K/uL (0-0.50) 02/22/23 Basophils # (Auto) 0.03 K/uL (0-0.2) 02/22/23 Immature Granulocyte # (Auto) 0.02 K/uL (0.01-0.20) 3 Na 142 mmol/L (136-145) 02/22/23 K 4.8 mmol/L (3.5-5.1) 02/22/23 Cl 112 mmol/L (98-107) H 02/22/23 CO2 24 mmol/L (21-32) 02/22/23 Anion Gap 6 (3-11) 02/22/23 BUN 76 mg/dl (6-23) H 02/22/23 Creatinine 5.47 mg/dl (0.6-1.4) H* 02/22/23 Estimated GFR ( Amer) 11.7 ml/min 02/22/23 Estimated GFR (Non-Af Amer) 10.1 ml/min 02/22/23 BUN/Creatinine Ratio 13.9 (10-20) 02/22/23 Glu 89 mg/dl (70-99(Fasting)) 02/22/23 Ca 8.7 mg/dl (8.6-10.3) 02/22/23 Total Bilirubin 0.5 mg/dl (0.2-1.0) 02/22/23 AST 20 U/L (13-39) 02/22/23 ALT 17 U/L (7-52) 02/22/23 Alkaline Phosphatase 70 U/L (34-104) 02/22/23 TP 7.5 gm/dl (6.0-8.3) 02/22/23 Albumin 3.5 gm/dl (3.4-5.0) 02/22/23 Globulin 4.0 gm/dl (2.5-4.0) 02/22/23 Albumin/Globulin Ratio 0.9 (0.9-2) 02/22/23 Mg 1.8 mg/dl (1.7-2.4) 02/22/23 07:16 Calcium Level 8.7 mg/dl (8.6-10.3) 02/22/23 07:16 Prothromb Time International Ratio 1.1 (0.9-1.1) 02/22/23 07:1 6 Microbiology 02/20/23 19:25 Urine Culture - Final Urine,Straight Cath Three types of organisms present, all low counts probable skin romario. No further identifications or sensitivities to follow. Diagnostic Findings (Past 24 Hours) Abdomen/Pelvis CT 02/20/23 14:22 CT chest diagnostic wo con CLINICAL HISTORY: 63 years-old Male with right pleural effusion. Acute shortness of breath with chest and abdominal pain TECHNIQUE: Multiaxial CT images of the chest, abdomen and pelvis were performed without contrast. A dose lowering technique was utilized adhering to the principles of ALARA. COMPARISON: CTA abdomen and pelvis 09/29/2022 FINDINGS: CT CHEST: No thyroid nodule. Lymphadenopathy. Moderate cardiomegaly without pericardial effusion. No thoracic aortic aneurysm. Small left and large right pleural effusions. No pneumothorax. Basilar consolidation with partial collapse invol ving the majority of the right lower and middle lobes. No obstructing endobronchial lesion identified. The left lung is generally clear. Anasarca. No acute fracture identified. CT ABDOMEN/PELVIS: There is no pneumatosis or pneumoperitoneum. The unenhanced spleen measures up to 17 cm in length. Unremarkable pancreas and adrenal glands. Contracted gallbladder. Cirrhotic liver. Recanalization of the umbilical vein. No hepatic mass identified. Nonobstructing calculi of the kidneys measure up to approximately 5 mm bilaterally. Cortical thinning of the kidneys with mild atrophy. An 8 cm left renal cyst. No ureteral calculi or hydronephrosis. Decompressed urinary bladder with Partida catheter in place. Prostamegaly. Mild inguinal chain adenopathy. Atherosclerosis of the abdominal aorta and branch vessels. Status post placement of an aortobiiliac stent graft. Mild infrarenal abdominal aortic aneurysm, 3.5 cm. The left common iliac artery is dilated, 5.1 cm. No evidence of aneurysm rupture. Small volume of abdominopelvic ascites with anasarca. Normal appendix. No bowel obstruction or bowel wall thickening. No acute fracture. IMPRESSION: 1. Fluid overload manifested by small left and large right pleural effusions with anasarca and small volume of abdominal pelvic ascites. 2. Partial collapse of the right middle and lower lobes. No obstructing endobronchial lesion identified on this exam. 3. Cirrhosis with stigmata of portal venous hypertension. 4. Status post placement of an aortobiiliac stent graft. 5. No bowel obstruction or bowel wall thickening. 6. Colonic diverticulosis. 7. Bilateral nephrolithiasis. ACT 112: Negative or not required by law. Electronically signed by: Saeed Dior M.D. 02/20/2023 5:[address] 02/20/23 14:22 CT chest diagnostic wo con CLINICAL HISTORY: 63 years-old Male with right pleural effusion. Acute shortness of breath with chest and abdominal pain TECHNIQUE: Multiaxial CT images of the chest, abdomen and pelvis were performed without contrast. A dose lowering technique was utilized adhering to the principles of ALARA. COMPARISON: CTA abdomen and pelvis 09/29/2022 FINDINGS: CT CHEST: No thyroid nodule. Lymphadenopathy. Moderate cardiomegaly without pericardial effusion. No thoracic aortic aneurysm. Small left and large right pleural effusions. No pneumothorax. Basilar consolidation with partial collapse involving the majority of the right lower and middle lobes. No obstructing endobronchial lesion identified. The left lung is generally clear. Anasarca. No acute fracture identified. CT ABDOMEN/PELVIS: There is no pneumatosis or pneumoperitoneum. The unenhanced spleen measures up to 17 cm in length. Unremarkable pancreas and adrenal glands. Contracted gallbladder. Cirrhotic liver. Recanalization of the umbilical vein. No hepatic mass identified. Nonobstructing calculi of the kidneys measure up to approximately 5 mm bilaterally. Cortical thinning of the kidneys with mild atrophy. An 8 cm left renal cyst. No ureteral calculi or hydronephrosis. Decompressed urinary bladder with Partida catheter in place. Prostamegaly. Mild inguinal chain adenopathy. Atherosclerosis of the abdominal aorta and branch vessels. Status post placement of an aortobiiliac stent graft. Mild infrarenal abdominal aortic aneurysm, 3.5 cm. The left common iliac artery is dilated, 5.1 cm. No evidence of aneurysm rupture. Small volume of abdominopelvic ascites with anasarca. Normal appendix. No bowel obstruction or bowel wall thickening. No acute fracture. IMPRESSION: 1. Fluid overload manifested by small left and large right pleural effusions with anasarca and small volume of abdominal pelvic ascites. 2. Partial collapse of the right middle and lower lobes. No obstructing endobronchial lesion identified on this exam. 3. Cirrhosis with stigmata of portal venous hypertension. 4. Status post placement of an aortobiiliac stent graft. 5. No bowel obstruction or bowel wall thickening. 6. Colonic diverticulosis. 7. Bilateral nephrolithiasis. ACT 112: Negative or not required by law. Electronically signed by: Saeed Dior M.D. 02/20/2023 5:17 PM I & O Totals 24 Hours 02/21/23 02/22/23 02/23/23 06:59 06:59 06:59 Intake Total 93.333 / 93.333 511.5 / 511.5 202.667 / 202.667 Output Total 850 / 850 2351 / 2351 950 / 950 Balance -756.667 / -756.667 -1839.5 / -1839.5 -747.333 / -747.333 Cumulative 02/20/23 11:45 thru 02/22/23 15:37 Intake Total 807.500 Output Total 4151 Balance -3343.500 RT Ventilator Mngmt (Last Documented) Ventilator Ordered Settings Respiratory Rate 20 02/22/23 15:42 Fraction of Inspired Oxygen 30 02/22/23 03:00 Ventilator - PT Measurements Respiratory Rate 20 PG Care Time/CCT Total # of Minutes Spent Total Time Spent with Patient: Total time spent is greater than 50% in coordination of care (as documented) at patient's floor/unit and/or counseling patient: Coding Level of Care Code 54684 SUB INP/OBS CARE 2/35MIN Diagnoses Bilateral pleural effusion J90 Acute kidney injury superimposed on CKD N17.9; N18.9 Volume overload E87.70 Hypoxemia R09.02
--- NOTE | 2023-02-22 17:10 | XRay Report ---
XR chest 1V portable CLINICAL HISTORY: S/P Thoracentesis TECHNIQUE: Single frontal radiograph of the chest was obtained. Comparison: Comparison is made to chest radiograph 02/20/2023 FINDINGS: Exam is limited by underpenetration. Cardiomegaly is noted. The lungs are clear. Interval decrease in size of right pleural effusion status post thoracentesis. No pneumothorax. IMPRESSION: Interval decrease in size of right pleural effusion status post thoracentesis. No pneumothorax. ACT 112: Negative or not required by law. Electronically signed by: Gabe Welsh M.D. 02/22/2023 5:09 PM
[2023-02-22 17:23] LABS: Glucose Pleural Fluid 115 mg/dl; LDH Pleural Fluid 59 U/L; Total Protein Pleural Fluid < 3.0 gm/dl
[2023-02-22 17:58] LABS: Appearance Pleural Fluid Hazy; Color Pleural Fluid Pale Yellow; Lymphocytes, Fluid 43 %; Mono,Macrophage,Mesothelial 52 %; Neutrophils, Fluid 5 %; RBC Pleural Fluid Auto 2000 /uL; Source Pleural Fluid Right Lung; WBC Pleural Fluid Auto 1603 /uL
[2023-02-22] MEDS: LIDOCAINE 2% JELLY 5 ML TUBE EXT PRN (19:53)
[2023-02-23] MEDS ORDERED: ALBUTEROL 0.083% NEBU SOLN 3 ML VIAL NEB STA (02:58)
[2023-02-23] MEDS: ALBUTEROL HFA 8 GM INHALER INH PRN ×2 (02:59→22:58)
[2023-02-23] MEDS ORDERED: ALBUTEROL 0.083% NEBU SOLN 3 ML VIAL ONE (03:06)
[2023-02-23] MEDS: HEPARIN SOD 5,000 UNIT/0.5 ML VIAL SQ SCH ×2 (05:31→14:10)
[2023-02-23] MEDS ORDERED: FUROSEMIDE 40 MG/4 ML VIAL IV ONE ×2 (06:00→16:00)
[2023-02-23 07:35] LABS: Hematocrit (blood only) 28.7 % (42.0-52.0); Hemoglobin 8.8 g/dl (14.0-18.0); Mean Corpuscular Hemoglobin 28.9 pg (25.0-34.0); Mean Corpuscular Hgb Conc 30.7 g/dL (32.0-36.0); Mean Corpuscular Volume 94.4 fL (80.0-100.0); Mean Platelet Volume 12.7 fL (9.4-12.4); Platelet Count 67 K/uL (130-400); RDW Coefficient of Variation 15.6 % (11.5-14.5); RDW Standard Deviation 54.1 fL (36.4-46.3); Red Blood Count 3.04 M/uL (4.70-6.10); White Blood Count 7.29 K/ul (4.8-10.8)
--- NOTE | 2023-02-23 07:37 | XRay Report ---
XR chest 1V portable CLINICAL HISTORY: increased work of breathing TECHNIQUE: Single frontal radiograph of the chest was obtained. Comparison: Comparison is made to chest radiograph 02/22/2013 FINDINGS: No lines and tubes are seen. Cardiomegaly is noted. Prominent right airspace opacity is seen. There m ay be a small layering right pneumothorax. IMPRESSION: Right lung airspace opacity may represent reexpansion pulmonary edema in this patient status post rec ent thoracentesis. ACT 112: Negative or not required by law. Electronically signed by: Gabe Welsh M.D. 02/23/2023 7:35 AM
[2023-02-23 07:48] LABS: INR 1.1 (0.9-1.1); Prothrombin Time 12.4 Seconds (9.0-12.0)
[2023-02-23 07:49] LABS: Albumin Globulin Ratio 0.9 (0.9-2); Albumin Level 3.3 gm/dl (3.4-5.0); BUN Creatinine Ratio 13.6 (10-20); Bilirubin,Total 0.4 mg/dl (0.2-1.0); Calcium 8.5 mg/dl (8.6-10.3); Creatinine Clr Calc Pharmacy 18.3 ml/min; Est GFR (African American) 11.4 ml/min; Est GFR (Non-African American) 9.9 ml/min; Globulin 3.7 gm/dl (2.5-4.0); Magnesium 1.7 mg/dl (1.7-2.4); Potassium 4.5 mmol/L (3.5-5.1)
[2023-02-23 07:57] LABS: Basophils # (auto) 0.03 K/uL (0-0.2); Basophils % (auto) 0.4 %; Eosinophils % (auto) 1.4 %; Immature Granulocytes # (auto) 0.01 K/uL (0.01-0.20); Immature Granulocytes % (auto) 0.1 %; Lymphocytes # (auto) 1.56 K/uL (1.2-3.4); Lymphocytes % (auto) 21.4 %; Monocytes % (auto) 6.9 %; Neutrophils # (auto) 5.09 K/uL (1.40-6.50); Neutrophils % (auto) 69.8 %
[2023-02-23] MEDS: BETAMETHASONE VAL 0.1% CR 15 GM EXT SCH (08:35)
[2023-02-23] MEDS: METOPROLOL SUCC 50MG EXT REL TAB PO SCH (08:35)
--- NOTE | 2023-02-23 08:52 | Pulmonology Progress Note ---
Date of Service February 23, 2023 Assessment & Plan (1) Bilateral pleural effusion: (2) Acute kidney injury superimposed on CKD: (3) Volume overload: (4) Hypoxemia: Plan Impression: 63-year-old male with morbid obesity and acute on chronic kidney disease with anasarca and volume overload. Underwent thoracentesis yesterday for fluid characterization Recommendations: 1. Pleural effusion: Patient is status post RIGHT-sided thoracentesis yesterday. Pleural fluid appears to be transudative per lights criteria. Cytology pending. 2. Patient continues to have difficulty with breathing. This will likely not significantly improve until his volume status is under better control. Will defer to nephrology and his primary service at this point. 3. Acute on chronic hypercarbic respiratory failure: The patient is acidemic at baseline. His degree of acidosis is not fully explained by his elevated CO2. He likely has undiagnosed/untreated sleep disordered breathing/obesity hypoventilation syndrome. Recommend nocturnal positive airway pressure at bilevel 10/5 but again this will not likely correct his acid-base status and he may require bicarb or renal replacement. Per nephrology. We will continue to follow with you. Feel free to contact us with questions or concerns. Admission and Anticipated Discharge Date Admission Date: February 20, 2023 Supervising Physician Co-Signing Physician Notes Patient seen and examined. Fluid transudative, cytology pending, cultures negative. Consistent with volume overload. Recommend continued fluid removal. would not recommend serial thoracentesis for volume management. Pulmonary will sign off, call if ?S Subjective Patient was seen and evaluated bedside today. He reports that his breathing feels worse as he feels as though he is wheezing. He is saturating fine on nasal cannula at this point. He reports no chest pain or hemoptysis. Review of Systems Review of Systems: A complete 6 point review of systems was reviewed with the patient with pertinent positives and negatives as per history of present illness. All else were negative. Physical Exam Physical Exam: VITAL SIGNS - Vital signs and nursing notes were reviewed. GENERAL - 63-year-old male appearing his stated age who is in no acute distress. Communicates well with provider and answers questions appropriately. LUNGS - Auscultation reveals bibasilar rales. No wheezing noted. CARDIAC - RRR with S1/S2. No murmur, rubs, or gallops appreciated. ABDOMEN - Abdominal inspection demonstrates obese abdomen. BS normoactive all four quadrants. No tenderness, palpable masses, or ascites noted. PSYCH - A&Ox3 and cooperates fully with examiner. Pt is very pleasant and int eracts well with examiner. Results & Data Results & Data Vital Signs (Past 12 Hours) Vital Signs Temp Pulse Pulse Resp BP Pulse Ox O2 Del Method 02/23/23 07:50 87 02/23/23 07:50 Nasal Cannula 02/23/23 07:46 36.9 C 97 H 20 100/63 94 Nasal Cannula 02/23/23 05:42 36.7 C 93 H 28 H 124/82 97 Nasal Cannula 02/23/23 03:28 99 H 26 H 96 Nasal Cannula 02/23/23 03:11 104 H 02/23/23 03:00 101 H 25 H 96 Nasal Cannula 02/23/23 02:20 36.7 C 90 28 H 107/75 95 BiPAP 02/23/23 00:00 02/22/23 23:36 37 C 97 H 30 H 118/67 95 BiPAP 02/22/23 23:19 96 H 29 H 93 02/22/23 21:38 36.8 C 102 H 28 H 126/83 93 Nasal Cannula O2 Flow Rate 02/23/23 07:50 02/23/23 07:50 6 02/23/23 07:46 6 02/23/23 05:42 6 02/23/23 03:28 6 02/23/23 03:11 02/23/23 03:00 4 02/23/23 02:20 8 02/23/23 00:00 6 02/22/23 23:36 02/22/23 23:19 4 02/22/23 21:38 6 PG Care Time/CCT Total # of Minutes Spent Total Time Spent with Patient: Total time spent is greater than 50% in coordination of care (as documented) at patient's floor/unit and/or counseling patient: Coding Level of Care Code 25041 SUB INP/OBS CARE 2/35MIN Diagnoses Bilateral pleural effusion J90 Acute kidney injury superimposed on CKD N17.9; N18.9 Volume overload E87.70 Hypoxemia R09.02
[2023-02-23] MEDS ORDERED: IRON SUCROSE 200 MG in 0.9 % SODIUM CHLORIDE 100 ML IV ONE (09:00)
--- NOTE | 2023-02-23 10:26 | Nephrology Progress Note ---
Date of Service February 23, 2023 Assessment & Plan (1) Acute kidney injury superimposed on CKD: Plan: No emergent indication for dialysis at this time. Non-oliguric. Electrolytes acceptable. Volume status gradually improving. Medications appropriately dosed for kidney dysfunction. Losartan and HCTZ held. Renal diet. Document I/O's. Diuretics to encourage negative fluid balance. Goal remains ~2 L negative daily. (2) CKD (chronic kidney disease) stage 4, GFR 15-29 ml/min: Plan: CKD IV A3. Baseline creatinine 4.5 mg/dL. PCR 1.8. Followed by Dr. Dyson. Plans to continue IHD at [facility], when needed. Unfortunately, Dr. Guillory is not available for TDC placement until next week. Will need to discuss with general surgery for TDC if needed prior to this. Will requirement close outpatient follow up for AVF placement. (3) Volume overload: Plan: Likely due to kidney dysfunction. Goal is to encourage 2 L negative in next 24 hours. Furosemide gtt stopped yesterday afternoon to convert to intermittent dosing. Furosemide 40 mg IV provided this AM. Provide additional diuretic PRN this afternoon to encourage urine output. Document strict I/O's. Check daily weights. Renal diet: low sodium and restrict fluid intake to 1.2 L/d. (4) Bilateral pleural effusion: Plan: s/p thoracentesis with 1.7 L of transudative fluid removed yesterday. (5) Atrial fibrillation: Plan: Remains off Eliquis. (6) Anemia: Plan: Hgb stable. Epogen 90004 units provided yesterday. Venofer 200 mg daily x 2nd dose this AM. Admission and Anticipated Discharge Date Admission Date: February 20, 2023 Subjective No acute events overnight. Furosemide gtt discontinued yesterday afternoon. Furosemide 40 mg IV provided this AM. Good urine output. BIPAP off and on overnight. Does not tolerate for extended periods of time. Edema continues to improve. Cory reports not sleeping well last night. He is lethargic and drifting off to sleep this morning during conversation. Reports improvement in dyspnea s/p thoracentesis yesterday. 1.7 L of fluid removed. No fevers or chills. Appetite is good. Denies nausea or GI symptoms. Review of Systems Review of Systems: All systems reviewed & are unremarkable except as noted in HPI & below Physical Exam Constitutional: well developed and + morbidly obese; no acute distress Eyes: + anicteric sclerae; pupils not irregular ENMT: Mouth: + dry oral mucous membranes; no oral mucosal abnormality Neck: normal visual inspection, trachea midline and + thick neck Respiratory: normal respiratory effort and + tachypneic; no respiratory distress Auscultation: + rales Cardiovascular: Rate/Rhythm: regular rate Heart Sounds: normal S1 and normal S2 Vessels: + JVD Extremities: + edema Musculoskeletal: Extremities: no cyanosis and no clubbing Skin: normal turgor; no jaundice Neurologic: Motor/Sensory: no tremor and no asterixis Psychiatric: Orientation: alert and oriented x 3 Results & Data Vital Signs (Past 12 Hours) Vital Signs Temp Pulse Pulse Resp BP Pulse Ox O2 Del Method 02/23/23 07:50 87 02/23/23 07:50 Nasal Cannula 02/23/23 07:46 36.9 C 97 H 20 100/63 94 Nasal Cannula 02/23/23 05:42 36.7 C 93 H 28 H 124/82 97 Nasal Cannula 02/23/23 03:28 99 H 26 H 96 Nasal Cannula 02/23/23 03:11 104 H 02/23/23 03:00 101 H 25 H 96 Nasal Cannula 02/23/23 02:20 36.7 C 90 28 H 107/75 95 BiPAP 02/23/23 00:00 02/22/23 23:36 37 C 97 H 30 H 118/67 95 BiPAP 02/22/23 23:19 96 H 29 H 93 O2 Flow Rate 02/23/23 07:50 02/23/23 07:50 6 02/23/23 07:46 6 02/23/23 05:42 6 02/23/23 03:28 6 02/23/23 03:11 02/23/23 03:00 4 02/23/23 02:20 8 02/23/23 00:00 6 02/22/23 23:36 02/22/23 23:19 4 Laboratory Results Laboratory Results - last 24 hr 02/22/23 02/22/23 02/22/23 16:30 16:30 16:30 WBC RBC Hgb Hct MCV MCH MCHC RDW Std Deviation RDW Coeff of Raffaele Plt Count MPV Immature Gran % (Auto) Neut % (Auto) Lymph % (Auto) [place] % (Auto) Eos % (Auto) Baso % (Auto) Neut # (Auto) Lymph # (Auto) [place] # (Auto) Eos # (Auto) Baso # (Auto) Immature Gran # (Auto) PT INR Sodium Potassium Chloride Carbon Dioxide Anion Gap BUN Creatinine Est Cr Clr Drug Dosing Est GFR ( Amer) Est GFR (Non-Af Amer) BUN/Creatinine Ratio Glucose Calcium Magnesium Total Bilirubin AST ALT Alkaline Phosphatase Total Protein Albumin Globulin Albumin/Globulin Ratio Fluid Neutrophils % 5 Fluid Lymphocytes % 43 Fluid Meso/Macro/[place] % 52 Fluid Comment Pleural Fluid Source Right Lung Pleural Color Pale Yellow Pleural Appearance Hazy Pleural pH 7.35 Pleural WBC (Auto) 1603 Pleural RBC (Auto) 2000 Pleural Total Protein < 3.0 Pleural LDH 59 Pleural Glucose 115 02/23/23 02/23/23 02/23/23 06:28 06:28 06:28 WBC 7.29 RBC 3.04 L Hgb 8.8 L Hct 28.7 L MCV 94.4 MCH 28.9 MCHC 30.7 L RDW Std Deviation 54.1 H RDW Coeff of Raffaele 15.6 H Plt Count 67 L MPV 12.7 H Immature Gran % (Auto) 0.1 Neut % (Auto) 69.8 Lymph % (Auto) 21.4 [place] % (Auto) 6.9 Eos % (Auto) 1.4 Baso % (Auto) 0.4 Neut # (Auto) 5.09 Lymph # (Auto) 1.56 [place] # (Auto) 0.50 Eos # (Auto) 0.10 Baso # (Auto) 0.03 Immature Gran # (Auto) 0.01 PT 12.4 H INR 1.1 Sodium 141 Potassium 4.5 Chloride 111 H Carbon Dioxide 22 Anion Gap 8 BUN 76 H Creatinine 5.57 H* Est Cr Clr Drug Dosing 18.3 Est GFR ( Amer) 11.4 Est GFR (Non-Af Amer) 9.9 BUN/Creatinine Ratio 13.6 Glucose 92 Calcium 8.5 L Magnesium 1.7 Total Bilirubin 0.4 AST 19 ALT 15 Alkaline Phosphatase 74 Total Protein 7.0 Albumin 3.3 L Globulin 3.7 Albumin/Globulin Ratio 0.9 Fluid Neutrophils % Fluid Lymphocytes % Fluid Mes[place]/Macro/[place] % Fluid Comment Pleural Fluid Source Pleural Color Pleural Appearance Pleural pH Pleural WBC (Auto) Pleural RBC (Auto) Pleural Total Protein Pleural LDH Pleural Glucose PG Care Time/CCT Total # of Minutes Spent Total Time Spent with Patient: Total time spent is greater than 50% in coordination of care (as documented) at patient's floor/unit and/or counseling patient: Coding Level of Care Code 23868 SUB INP/OBS CARE 3/50MIN Diagnoses Acute kidney injury superimposed on CKD N17.9; N18.9 CKD (chronic kidney disease) stage 4, GFR 15-29 ml/min N18.4 Volume overload E87.70 Bilateral pleural effusion J90 Atrial fibrillation I48.91 Atrial fibrillation type: unspecified Anemia D64.9 (5) Atrial fibrillation Atrial fibrillation type: unspecified Qualified Code(s): I48.91 - Unspecified atrial fibrillation
[2023-02-23] MEDS ORDERED: ACETAMINOPHEN 500 MG TAB PO ONE (10:34)
--- NOTE | 2023-02-23 14:12 | Hospitalist Progress Note ---
Date of Service February 23, 2023 Assessment & Plan (1) Acute kidney injury superimposed on CKD: Plan: baseline Cr about 4-4.5 with baseline CrCl 20s (c/w stage 4 CKD) he is now volume overloaded from worsening renal disease creatinine has slowly risen with diuresis daily BMP appreciate nephrology consultation (2) Thrombocytopenia: Plan: worse Eliquis is on hold place heparin SC on hold chronically low platelets likely from cirrhosis acute drop from ? check TSH, B12, and folate in am for completeness repeat CBC am (3) Volume overload: Plan: 2nd #1 lasix drip converted to bolus lasix today 40mg x 1 this am enacted poor diuresis will give 80mg this afternoon BMP am (4) Pleural effusion on right: Plan: s/p thoracentesis yesterday with 1500+ out fluid studies c/w transudative fluid culture neg appreciate pulmonary assistance cytologies pending (5) Atrial fibrillation: Plan: cont metoprolol 50mg daily rates acceptable Apixaban on hold due to worsening platelets, need for thoracentesis yesterday, etc (6) Hyperlipidemia: (7) Psoriasis: Plan: cont topical steroid therapy (8) CKD (chronic kidney disease) stage 4, GFR 15-29 ml/min: Plan: baseline CrCl 20s BMP am (9) Cirrhosis: Plan: patient with prior h/o HepC s/p treatment in the past (interferon therapy?) hepC ab is positive - will send hepC RNA liver appears cirrhotic on imaging low platelets may be from this cirrhosis could be driving some of the fluid issues (10) COPD (chronic obstructive pulmonary disease): Plan: schedule combivent 1 puff QID (11) Hypertension: Plan: controlled (12) History of hepatitis C: Plan: see above (13) Diarrhea: Plan: several months in duration start with stool studies then go from there ordered stool BioFire + stool for c diff (14) DVT prophylaxis: Plan: unfortunately have to hold heparin SC due to worsening platelet count Plan care d/w Dr Jin from nephrology today needs PT/OT -- both ordered Admission and Anticipated Discharge Date Admission Date: February 20, 2023 Subjective tele stable overnight he had worsening dyspnea and PND/orthopnea overnight use of BIPAP helped with this during my visit he was back down to 2 liters NC O2 per staff only put out about 600cc of urine with AM lasix pt states that for several months he has had diarrhea at home loose, runny, watery at times denies abd pain Review of Systems Review of Systems: gen - no fever cv - no chest pain pulm - mild cough GI - no vomiting Physical Exam Physical Exam: gen - obese, sitting at side of bed, NAD neck - no JVD sitting at 90 degrees mouth - MM dry heart - irregular, s1 s2 lungs - rales 1/2 way up right base, clear on left, mild wheezing R lung abd - soft NT BS+; distended ext - 2+ pitting edema b/l legs with edema extending to knees psych - a/o x 3 neuro - no asterixis; slight tremor noted skin - extensive psoriatic plaques on torso, arms, legs, back, etc Results & Data Results & Data Vital Signs (Past 12 Hours) Vital Signs Temp Pulse Pulse Resp BP Pulse Ox O2 Del Method 02/23/23 13:08 96 Nasal Cannula 02/23/23 11:33 36.9 C 91 H 18 146/69 H 98 Nasal Cannula 02/23/23 07:50 87 02/23/23 07:50 Nasal Cannula 02/23/23 07:46 36.9 C 97 H 20 100/63 94 Nasal Cannula 02/23/23 05:42 36.7 C 93 H 28 H 124/82 97 Nasal Cannula 02/23/23 03:28 99 H 26 H 96 Nasal Cannula 02/23/23 03:11 104 H 02/23/23 03:00 101 H 25 H 96 Nasal Cannula 02/23/23 02:20 36.7 C 90 28 H 107/75 95 BiPAP O2 Flow Rate 02/23/23 13:08 4 02/23/23 11:33 6 02/23/23 07:50 02/23/23 07:50 6 02/23/23 07:46 6 02/23/23 05:42 6 02/23/23 03:28 6 02/23/23 03:11 02/23/23 03:00 4 02/23/23 02:20 8 Laboratory Results Laboratory Results - last 24 hr 02/21/23 02/23/23 02/23/23 06:33 06:28 06:28 WBC 7.29 RBC 3.04 L Hgb 8.8 L Hct 28.7 L MCV 94.4 MCH 28.9 MCHC 30.7 L RDW Std Deviation 54.1 H RDW Coeff of Raffaele 15.6 H Plt Count 67 L MPV 12.7 H Immature Gran % (Auto) 0.1 Neut % (Auto) 69.8 Lymph % (Auto) 21.4 [place] % (Auto) 6.9 Eos % (Auto) 1.4 Baso % (Auto) 0.4 Neut # (Auto) 5.09 Lymph # (Auto) 1.56 [place] # (Auto) 0.50 Eos # (Auto) 0.10 Baso # (Auto) 0.03 Immature Gran # (Auto) 0.01 PT 12.4 H INR 1.1 Sodium Potassium Chloride Carbon Dioxide Anion Gap BUN Creatinine Est Cr Clr Drug Dosing Est GFR ( Amer) Est GFR (Non-Af Amer) BUN/Creatinine Ratio Glucose Calcium Magnesium Total Bilirubin AST ALT Alkaline Phosphatase Total Protein Albumin Globulin Albumin/Globulin Ratio Hepatitis C Ab (EIA) REACTIVE A Hep C Ab Signal/Cutoff >11.00 H 02/23/23 06:28 WBC RBC Hgb Hct MCV MCH MCHC RDW Std Deviation RDW Coeff of Raffaele Plt Count MPV Immature Gran % (Auto) Neut % (Auto) Lymph % (Auto) [place] % (Auto) Eos % (Auto) Baso % (Auto) Neut # (Auto) Lymph # (Auto) [place] # (Auto) Eos # (Auto) Baso # (Auto) Immature Gran # (Auto) PT INR Sodium 141 Potassium 4.5 Chloride 111 H Carbon Dioxide 22 Anion Gap 8 BUN 76 H Creatinine 5.57 H* Est Cr Clr Drug Dosing 18.3 Est GFR ( Amer) 11.4 Est GFR (Non-Af Amer) 9.9 BUN/Creatinine Ratio 13.6 Glucose 92 Calcium 8.5 L Magnesium 1.7 Total Bilirubin 0.4 AST 19 ALT 15 Alkaline Phosphatase 74 Total Protein 7.0 Albumin 3.3 L Globulin 3.7 Albumin/Globulin Ratio 0.9 Hepatitis C Ab (EIA) Hep C Ab Signal/Cutoff PG Care Time/CCT Total # of Minutes Spent Total Time Spent with Patient: Total time spent is greater than 50% in coordination of care (as documented) at patient's floor/unit and/or counseling patient: Coding Level of Care Code 00742 SUB INP/OBS CARE 3/50MIN Diagnoses Acute kidney injury superimposed on CKD N17.9; N18.9 Thrombocytopenia D69.6 Volume overload E87.70 Pleural effusion on right J90 Atrial fibrillation I48.91 Atrial fibrillation type: unspecified Hyperlipidemia E78.5 Psoriasis L40.9 CKD (chronic kidney disease) stage 4, GFR 15-29 ml/min N18.4 Cirrhosis K74.60 COPD (chronic obstructive pulmonary disease) J44.9 Hypertension I10 History of hepatitis C Z86.19 Diarrhea R19.7 DVT prophylaxis Z29.9 (5) Atrial fibrillation Atrial fibrillation type: unspecified Qualified Code(s): I48.91 - Unspecified atrial fibrillation
[2023-02-23] MEDS ORDERED: IPRATROPIUM BROMIDE/ALBUTEROL respimat INH INH SCH (17:00)
[2023-02-23] MEDS: ALBUTEROL HFA 8 GM INHALER INH SCH ×2 (17:08→19:21)
[2023-02-23] MEDS: IPRATROPIUM BROMIDE HFA INHALER INH SCH ×2 (17:08→19:21)
[2023-02-24] MEDS ORDERED: ALBUT/IPRATROP 3MG/0.5MG NEB 3 ML VIAL NEB STA (01:51)
[2023-02-24] MEDS: MELATONIN 3 MG TAB PO PRN (02:45)
[2023-02-24 06:43] LABS: Adenovirus F 40/41 PCR Not Detected (NotDetected); Astrovirus PCR Not Detected (NotDetected); Campylobacter PCR Not Detected (NotDetected); Cryptosporidium PCR Not Detected (NotDetected); Cyclospora cayetanensis PCR Not Detected (NotDetected); Entamoeba histolytica PCR Not Detected (NotDetected); Enteroaggregative E.coli(EAEC) Not Detected (NotDetected); Enteropathogenic E.coli (EPEC) Not Detected (NotDetected); Enterotoxigenic E.coli (ETEC) Not Detected (NotDetected); Giardia lamblia PCR Not Detected (NotDetected); Norovirus GI/GII PCR Not Detected (NotDetected); Plesiomonas shigelloides PCR Not Detected (NotDetected); Rotavirus A PCR Not Detected (NotDetected); Salmonella PCR Not Detected (NotDetected); Sapovirus PCR Not Detected (NotDetected); Shiga-like Toxin E.coli (STEC) Not Detected (NotDetected); Shigella/Enteroinvasive E.coli Not Detected (NotDetected); Vibrio cholerae PCR Not Detected (NotDetected); Vibrio species PCR Not Detected (NotDetected); Yersinia enterocolitica PCR Not Detected (NotDetected)
[2023-02-24] MEDS: IPRATROPIUM BROMIDE HFA INHALER INH SCH ×4 (07:19→19:43)
[2023-02-24] MEDS: ALBUTEROL HFA 8 GM INHALER INH SCH ×4 (07:19→19:43)
[2023-02-24 07:34] LABS: Hematocrit (blood only) 28.5 % (42.0-52.0); Hemoglobin 8.7 g/dl (14.0-18.0); Mean Corpuscular Hemoglobin 28.7 pg (25.0-34.0); Mean Corpuscular Hgb Conc 30.5 g/dL (32.0-36.0); Mean Corpuscular Volume 94.1 fL (80.0-100.0); Mean Platelet Volume 12.5 fL (9.4-12.4); Platelet Count 66 K/uL (130-400); RDW Coefficient of Variation 15.5 % (11.5-14.5); RDW Standard Deviation 53.5 fL (36.4-46.3); Red Blood Count 3.03 M/uL (4.70-6.10); White Blood Count 5.45 K/ul (4.8-10.8)
[2023-02-24] MEDS: BETAMETHASONE VAL 0.1% CR 15 GM EXT SCH (08:47)
[2023-02-24] MEDS: METOPROLOL SUCC 50MG EXT REL TAB PO SCH (08:47)
[2023-02-24 09:44] LABS: Albumin Level 3.1 gm/dl (3.4-5.0); BUN Creatinine Ratio 13.9 (10-20); Calcium 8.5 mg/dl (8.6-10.3); Creatinine Clr Calc Pharmacy 17.4 ml/min; Est GFR (African American) 10.9 ml/min; Est GFR (Non-African American) 9.4 ml/min; Phosphorus 5.8 mg/dl (2.5-4.9); Potassium 4.4 mmol/L (3.5-5.1)
[2023-02-24] MEDS ORDERED: FUROSEMIDE 40 MG/4 ML VIAL IV ONE (09:57)
[2023-02-24] MEDS ORDERED: IRON SUCROSE 200 MG in 0.9 % SODIUM CHLORIDE 100 ML IV ONE (09:58)
--- NOTE | 2023-02-24 10:07 | Nephrology Progress Note ---
Date of Service February 24, 2023 Assessment & Plan (1) Acute kidney injury superimposed on CKD: Plan: No emergent indication for dialysis at this time. Non-oliguric. Electrolytes acceptable. Volume status gradually improving. Medications appropriately dosed for kidney dysfunction. Losartan and HCTZ held. Renal diet. Document I/O's. Diuretics to encourage negative fluid balance. Goal remains ~2 L negative daily. (2) CKD (chronic kidney disease) stage 4, GFR 15-29 ml/min: Plan: CKD IV A3. Baseline creatinine 4.5 mg/dL. PCR 1.8. Followed by Dr. Dyson. Plans to continue IHD at [facility], when needed. Unfortunately, Dr. Guillory is not available for TDC placement until next week. Will need to discuss with general surgery for TDC if needed prior to this. Will requirement close outpatient follow up for AVF placement. (3) Volume overload: Plan: Likely due to kidney dysfunction. Goal is to encourage 2 L negative in next 24 hours. Furosemide 80 mg IV provided this AM. Provide additional diuretic PRN this afternoon to encourage urine output. Document strict I/O's. Check daily weights. Renal diet: low sodium and restrict fluid intake to 1.2 L/d. (4) Bilateral pleural effusion: Plan: s/p thoracentesis with 1.7 L of transudative fluid removed. Appreciate pulmonology consultation. (5) Atrial fibrillation: Plan: Remains off Eliquis. (6) Anemia: Plan: Hgb stable. Epogen 91180 units provided 02/22. Venofer 200 mg daily x 3rd dose this AM. Admission and Anticipated Discharge Date Admission Date: February 20, 2023 Subjective No acute events overnight. Continues to report feeling tired. Cory is not sleeping well at night. He denies dyspnea. He feels that his edema is improving and abdominal distention notably improved. Appetite is good. Review of Systems Review of Systems: All systems reviewed & are unremarkable except as noted in HPI & below Physical Exam Constitutional: well developed and + morbidly obese; no acute distress Eyes: + anicteric sclerae; pupils not irregular ENMT: Mouth: + dry oral mucous membranes; no oral mucosal abnormality Neck: normal visual inspection, trachea midline and + thick neck Respiratory: normal respiratory effort Auscultation: + diminished lung sounds and + rales Cardiovascular: Rate/Rhythm: regular rate Heart Sounds: normal S1 and normal S2 Vessels: + JVD Extremities: + edema Musculoskeletal: Extremities: no cyanosis and no clubbing Skin: normal turgor; no jaundice Neurologic: Motor/Sensory: no tremor and no asterixis Psychiatric: Orientation: alert and oriented x 3 Results & Data Vital Signs (Past 12 Hours) Vital Signs Temp Pulse Pulse Pulse Resp BP Pulse Ox 02/24/23 07:41 98 H 02/24/23 07:41 02/24/23 07:21 97 H 18 96 02/24/23 02:55 36.8 C 95 H 28 H 111/73 96 02/24/23 02:00 89 18 94 02/24/23 01:14 92 H 02/23/23 22:52 36.4 C L 89 22 106/76 95 02/23/23 23:02 23 94 O2 Del Method O2 Flow Rate 02/24/23 07:41 02/24/23 07:41 Nasal Cannula 3 02/24/23 07:21 Nasal Cannula 3 02/24/23 02:55 Nasal Cannula 3 02/24/23 02:00 Nasal Cannula 2 02/24/23 01:14 02/23/23 22:52 Nasal Cannula 2.0 02/23/23 23:02 Nasal Cannula 2 Laboratory Results Laboratory Results - last 24 hr 02/21/23 02/24/23 02/24/23 06:33 05:19 05:19 WBC RBC Hgb Hct MCV MCH MCHC RDW Std Deviation RDW Coeff of Raffaele Plt Count MPV Sodium Potassium Chloride Carbon Dioxide Anion Gap BUN Creatinine Est Cr Clr Drug Dosing Est GFR ( Amer) Est GFR (Non-Af Amer) BUN/Creatinine Ratio Glucose Calcium Phosphorus Albumin Vitamin B12 Folate TSH Stl C. cayetanensis PCR Not Detected Stool Rotavirus A PCR Not Detected Stl Adenov F 40/41 PCR Not Detected Stool Astrovirus (PCR) Not Detected Stool Campylobacter PCR Not Detected Stl C. diff Tox B Gene Stool Cryptosporidium PCR Not Detected Stl E.coli Shiga Tox PCR Not Detected Stl Enterotoxigenic E PCR Not Detected Stool EPEC (PCR) Not Detected Stool EAEC (PCR) Not Detected Stl E. histolytica PCR Not Detected Stool Giardia Lamblia PCR Not Detected Stool Salmonella PCR Not Detected Stool Sapovirus (PCR) Not Detected Stl P. shigelloides PCR Not Detected Stl Shigella/EIEC PCR Not Detected St Y.enterocolitica PCR Not Detected Stool Vibrio (PCR) Not Detected Stl Vibrio cholerae PCR Not Detected Stl Norovirus GI/GII PCR Not Detected Hepatitis C Ab (EIA) REACTIVE A Hep C Ab Signal/Cutoff >11.00 H HCV RNA (PCR) IUs/ml HCV RNA PCR log IUs/ml 02/24/23 02/24/23 02/24/23 07:01 07:01 07:01 WBC 5.45 RBC 3.03 L Hgb 8.7 L Hct 28.5 L MCV 94.1 MCH 28.7 MCHC 30.5 L RDW Std Deviation 53.5 H RDW Coeff of Raffaele 15.5 H Plt Count 66 L MPV 12.5 H Sodium 142 Potassium 4.4 Chloride 111 H Carbon Dioxide 22 Anion Gap 9 BUN 80 H Creatinine 5.77 H* Est Cr Clr Drug Dosing 17.4 Est GFR ( Amer) 10.9 Est GFR (Non-Af Amer) 9.4 BUN/Creatinine Ratio 13.9 Glucose 93 Calcium 8.5 L Phosphorus 5.8 H Albumin 3.1 L Vitamin B12 Folate TSH 0.461 Stl C. cayetanensis PCR Stool Rotavirus A PCR Stl Adenov F 40/41 PCR Stool Astrovirus (PCR) Stool Campylobacter PCR Stl C. diff Tox B Gene Stool Cryptosporidium PCR Stl E.coli Shiga Tox PCR Stl Enterotoxigenic E PCR Stool EPEC (PCR) Stool EAEC (PCR) Stl E. histolytica PCR Stool Giardia Lamblia PCR Stool Salmonella PCR Stool Sapovirus (PCR) Stl P. shigelloides PCR Stl Shigella/EIEC PCR St Y.enterocolitica PCR Stool Vibrio (PCR) Stl Vibrio cholerae PCR Stl Norovirus GI/GII PCR Hepatitis C Ab (EIA) Hep C Ab Signal/Cutoff HCV RNA (PCR) IUs/ml HCV RNA PCR log IUs/ml 02/24/23 02/24/23 07:01 07:01 WBC RBC Hgb Hct MCV MCH MCHC RDW Std Deviation RDW Coeff of Raffaele Plt Count MPV Sodium Potassium Chloride Carbon Dioxide Anion Gap BUN Creatinine Est Cr Clr Drug Dosing Est GFR ( Amer) Est GFR (Non-Af Amer) BUN/Creatinine Ratio Glucose Calcium Phosphorus Albumin Vitamin B12 352 Folate 7.90 TSH Stl C. cayetanensis PCR Stool Rotavirus A PCR Stl Adenov F 40/41 PCR Stool Astrovirus (PCR) Stool Campylobacter PCR Stl C. diff Tox B Gene Stool Cryptosporidium PCR Stl E.coli Shiga Tox PCR Stl Enterotoxigenic E PCR Stool EPEC (PCR) Stool EAEC (PCR) Stl E. histolytica PCR Stool Giardia Lamblia PCR Stool Salmonella PCR Stool Sapovirus (PCR) Stl P. shigelloides PCR Stl Shigella/EIEC PCR St Y.enterocolitica PCR Stool Vibrio (PCR) Stl Vibrio cholerae PCR Stl Norovirus GI/GII PCR Hepatitis C Ab (EIA) Hep C Ab Signal/Cutoff HCV RNA (PCR) IUs/ml Pending HCV RNA PCR log IUs/ml Pending PG Care Time/CCT Total # of Minutes Spent Total Time Spent with Patient: Total time spent is greater than 50% in coordination of care (as documented) at patient's floor/unit and/or counseling patient: Coding Level of Care Code 93489 SUB INP/OBS CARE 3/50MIN Diagnoses Acute kidney injury superimposed on CKD N17.9; N18.9 CKD (chronic kidney disease) stage 4, GFR 15-29 ml/min N18.4 Volume overload E87.70 Bilateral pleural effusion J90 Atrial fibrillation I48.91 Atrial fibrillation type: unspecified Anemia D64.9 (5) Atrial fibrillation Atrial fibrillation type: unspecified Qualified Code(s): I48.91 - Unspecified atrial fibrillation
[2023-02-24] MEDS: FOLIC ACID 1 MG TAB PO SCH (13:42)
[2023-02-24] MEDS: CYANOCOBALAMIN (B-12) 500 MCG TABLET PO SCH (13:43)
--- NOTE | 2023-02-24 15:41 | Hospitalist Progress Note ---
Date of Service February 24, 2023 Assessment & Plan (1) Acute kidney injury superimposed on CKD: Plan: baseline Cr about 4-4.5 with baseline CrCl 20s (c/w stage 4 CKD) he is now volume overloaded from worsening renal disease creatinine has slowly risen with diuresis although minimal rise from 5.5 to 5.7 overnight K remains acceptable acid-base status remains acceptable s/p lasix this am will give bumex 2mg IV x 1 this afternoon daily BMP appreciate nephrology consultation if BUN and creatinine continue to rise, if volume status does not improve with diuresis, etc --> may need initiation of hemodialysis (2) Thrombocytopenia: Plan: moderate with platelet count 66 today cont to hold Eliquis cont to hold heparin SC chronically low platelets likely from cirrhosis acute drop from ? checked TSH - wnl B12 and folate levels are low-normal --> will supplement both repeat CBC am (3) Volume overload: Plan: 2nd #1 lasix drip converted to bolus lasix 02/23/23 s/p IV lasix this am will give bumex IV this afternoon cont to shoot for net negative, at minimum, 1 to 1.5 L daily (4) Pleural effusion on right: Plan: s/p thoracentesis with 1500+ out fluid studies c/w transudative fluid culture neg appreciate pulmonary assistance cytologies pending but anticipate will be normal (5) Atrial fibrillation: Plan: cont metoprolol 50mg daily rates acceptable Apixaban on hold due to worsening platelets (6) Hyperlipidemia: (7) Psoriasis: Plan: cont topical steroid therapy (8) CKD (chronic kidney disease) stage 4, GFR 15-29 ml/min: Plan: baseline CrCl 20s BMP am see #1 above (9) Cirrhosis: Plan: patient with prior h/o HepC s/p treatment in the past (interferon therapy?) hepC ab is positive - sent hepC RNA to determine if active infection or not liver appears cirrhotic on imaging low platelets may be from this cirrhosis could be driving some of the fluid issues (10) COPD (chronic obstructive pulmonary disease): Plan: cont combivent 1 puff QID (11) Hypertension: Plan: controlled (12) History of hepatitis C: Plan: see above (13) Diarrhea: Plan: several months in duration ordered stool BioFire + stool for c diff -- both fully negative etiology? (14) DVT prophylaxis: Plan: unfortunately have to cont to hold heparin SC due to worsening platelet count Plan care d/w Dr Jin from nephrology PT/OT Admission and Anticipated Discharge Date Admission Date: February 20, 2023 Subjective tele overnight wnl patient states he slept very poorly overnight he attempted to use the BIPAP but only wore it for a a few hours, stating the mask is not doable for him willing to try nasal pillows tonight during the visit he was laying relatively flat in bed he reported feeling dyspnea I raised the head of his bed and his dyspnea did improve with AM lasix he had diuresis of <750cc no new complaints Review of Systems Review of Systems: cv: +orthopnea, +PND, +dyspnea; no chest pain pulm: mild cough at times GI: abd distension and edema remain but no N/V Physical Exam Physical Exam: gen - obese, mild dyspnea and audible wheezing with him laying flat in bed; increased work of breathing improved with sitting up past 45 degrees neck - JVD+ mouth - MM dry heart - irregular, s1 s2, no murmur lungs - mild end-exp wheezes, scattered rales, increased work of breathing abd - soft NT BS+; distended with body wall edema ext - 2+ pitting edema b/l legs, pulses 2+ b/l psych - a/o x 3 skin - extensive psoriatic plaques on torso, arms, legs, back, etc Results & Data Results & Data Vital Signs (Past 12 Hours) Vital Signs Temp Pulse Pulse Resp BP Pulse Ox Pulse Ox 02/24/23 14:16 96 02/24/23 08:30 120/74 02/24/23 12:13 36.8 C 97 H 16 112/73 98 02/24/23 11:01 92 H 18 96 02/24/23 07:41 98 H 02/24/23 07:41 02/24/23 07:21 97 H 18 96 O2 Del Method O2 Flow Rate O2 Flow Rate 02/24/23 14:16 3 02/24/23 08:30 02/24/23 12:13 Nasal Cannula 3 02/24/23 11:01 Nasal Cannula 3 02/24/23 07:41 02/24/23 07:41 Nasal Cannula 3 02/24/23 07:21 Nasal Cannula 3 Laboratory Results Laboratory Results - last 24 hr 02/24/23 02/24/23 02/24/23 05:19 05:19 07:01 WBC RBC Hgb Hct MCV MCH MCHC RDW Std Deviation RDW Coeff of Raffaele Plt Count MPV Sodium Potassium Chloride Carbon Dioxide Anion Gap BUN Creatinine Est Cr Clr Drug Dosing Est GFR ( Amer) Est GFR (Non-Af Amer) BUN/Creatinine Ratio Glucose Calcium Phosphorus Albumin Vitamin B12 Folate TSH 0.461 Stl C. cayetanensis PCR Not Detected Stool Rotavirus A PCR Not Detected Stl Adenov F 40/41 PCR Not Detected Stool Astrovirus (PCR) Not Detected Stool Campylobacter PCR Not Detected Stl C. diff Tox B Gene Stool Cryptosporidium PCR Not Detected Stl E.coli Shiga Tox PCR Not Detected Stl Enterotoxigenic E PCR Not Detected Stool EPEC (PCR) Not Detected Stool EAEC (PCR) Not Detected Stl E. histolytica PCR Not Detected Stool Giardia Lamblia PCR Not Detected Stool Salmonella PCR Not Detected Stool Sapovirus (PCR) Not Detected Stl P. shigelloides PCR Not Detected Stl Shigella/EIEC PCR Not Detected St Y.enterocolitica PCR Not Detected Stool Vibrio (PCR) Not Detected Stl Vibrio cholerae PCR Not Detected Stl Norovirus GI/GII PCR Not Detected HCV RNA (PCR) IUs/ml HCV RNA PCR log IUs/ml 02/24/23 02/24/23 02/24/23 07:01 07:01 07:01 WBC 5.45 RBC 3.03 L Hgb 8.7 L Hct 28.5 L MCV 94.1 MCH 28.7 MCHC 30.5 L RDW Std Deviation 53.5 H RDW Coeff of Raffaele 15.5 H Plt Count 66 L MPV 12.5 H Sodium 142 Potassium 4.4 Chloride 111 H Carbon Dioxide 22 Anion Gap 9 BUN 80 H Creatinine 5.77 H* Est Cr Clr Drug Dosing 17.4 Est GFR ( Amer) 10.9 Est GFR (Non-Af Amer) 9.4 BUN/Creatinine Ratio 13.9 Glucose 93 Calcium 8.5 L Phosphorus 5.8 H Albumin 3.1 L Vitamin B12 Folate TSH Stl C. cayetanensis PCR Stool Rotavirus A PCR Stl Adenov F 40/41 PCR Stool Astrovirus (PCR) Stool Campylobacter PCR Stl C. diff Tox B Gene Stool Cryptosporidium PCR Stl E.coli Shiga Tox PCR Stl Enterotoxigenic E PCR Stool EPEC (PCR) Stool EAEC (PCR) Stl E. histolytica PCR Stool Giardia Lamblia PCR Stool Salmonella PCR Stool Sapovirus (PCR) Stl P. shigelloides PCR Stl Shigella/EIEC PCR St Y.enterocolitica PCR Stool Vibrio (PCR) Stl Vibrio cholerae PCR Stl Norovirus GI/GII PCR HCV RNA (PCR) IUs/ml Pending HCV RNA PCR log IUs/ml Pending 02/24/23 07:01 WBC RBC Hgb Hct MCV MCH MCHC RDW Std Deviation RDW Coeff of Raffaele Plt Count MPV Sodium Potassium Chloride Carbon Dioxide Anion Gap BUN Creatinine Est Cr Clr Drug Dosing Est GFR ( Amer) Est GFR (Non-Af Amer) BUN/Creatinine Ratio Glucose Calcium Phosphorus Albumin Vitamin B12 352 Folate 7.90 TSH Stl C. cayetanensis PCR Stool Rotavirus A PCR Stl Adenov F 40/41 PCR Stool Astrovirus (PCR) Stool Campylobacter PCR Stl C. diff Tox B Gene Stool Cryptosporidium PCR Stl E.coli Shiga Tox PCR Stl Enterotoxigenic E PCR Stool EPEC (PCR) Stool EAEC (PCR) Stl E. histolytica PCR Stool Giardia Lamblia PCR Stool Salmonella PCR Stool Sapovirus (PCR) Stl P. shigelloides PCR Stl Shigella/EIEC PCR St Y.enterocolitica PCR Stool Vibrio (PCR) Stl Vibrio cholerae PCR Stl Norovirus GI/GII PCR HCV RNA (PCR) IUs/ml HCV RNA PCR log IUs/ml PG Care Time/CCT Total # of Minutes Spent Total Time Spent with Patient: Total time spent is greater than 50% in coordination of care (as documented) at patient's floor/unit and/or counseling patient: Coding Level of Care Code 17367 SUB INP/OBS CARE 2/35MIN Diagnoses Acute kidney injury superimposed on CKD N17.9; N18.9 Thrombocytopenia D69.6 Volume overload E87.70 Pleural effusion on right J90 Atrial fibrillation I48.91 Atrial fibrillation type: unspecified Hyperlipidemia E78.5 Psoriasis L40.9 CKD (chronic kidney disease) stage 4, GFR 15-29 ml/min N18.4 Cirrhosis K74.60 COPD (chronic obstructive pulmonary disease) J44.9 Hypertension I10 History of hepatitis C Z86.19 Diarrhea R19.7 DVT prophylaxis Z29.9 (5) Atrial fibrillation Atrial fibrillation type: unspecified Qualified Code(s): I48.91 - Unspecified atrial fibrillation
[2023-02-24] MEDS ORDERED: BUMETANIDE 2 MG in SYRINGE 0 ML IV ONE (16:00)
[2023-02-25] MEDS: ACETAMINOPHEN 325 MG TAB PO PRN ×2 (06:42→20:52)
[2023-02-25] MEDS: IPRATROPIUM BROMIDE HFA INHALER INH SCH ×4 (07:00→19:57)
[2023-02-25] MEDS: ALBUTEROL HFA 8 GM INHALER INH SCH ×4 (07:01→19:57)
[2023-02-25 07:42] LABS: Hemoglobin 8.9 g/dl (14.0-18.0); Mean Corpuscular Hemoglobin 28.9 pg (25.0-34.0); Mean Corpuscular Hgb Conc 30.7 g/dL (32.0-36.0); Mean Corpuscular Volume 94.2 fL (80.0-100.0); Mean Platelet Volume 12.7 fL (9.4-12.4); Platelet Count 64 K/uL (130-400); RDW Coefficient of Variation 15.3 % (11.5-14.5); RDW Standard Deviation 52.9 fL (36.4-46.3); Red Blood Count 3.08 M/uL (4.70-6.10); White Blood Count 6.58 K/ul (4.8-10.8)
[2023-02-25 08:07] LABS: Albumin Level 3.2 gm/dl (3.4-5.0); BUN Creatinine Ratio 14.9 (10-20); Calcium 8.4 mg/dl (8.6-10.3); Creatinine Clr Calc Pharmacy 18.3 ml/min; Est GFR (African American) 11.8 ml/min; Est GFR (Non-African American) 10.2 ml/min; Phosphorus 5.3 mg/dl (2.5-4.9); Potassium 4.1 mmol/L (3.5-5.1)
[2023-02-25] MEDS: BUMETANIDE 2 MG in SYRINGE 0 ML IV SCH ×2 (09:04→17:13)
[2023-02-25] MEDS: BETAMETHASONE VAL 0.1% CR 15 GM EXT SCH (09:04)
[2023-02-25] MEDS: FOLIC ACID 1 MG TAB PO SCH (09:04)
[2023-02-25] MEDS: METOPROLOL SUCC 50MG EXT REL TAB PO SCH (09:04)
[2023-02-25] MEDS: CYANOCOBALAMIN (B-12) 500 MCG TABLET PO SCH (09:04)
--- NOTE | 2023-02-25 10:26 | Nephrology Progress Note ---
Date of Service February 25, 2023 Assessment & Plan (1) Acute kidney injury superimposed on CKD: Plan: No emergent indication for dialysis at this time. Non-oliguric. Electrolytes acceptable. Volume status improving. Medications appropriately dosed for kidney dysfunction. Losartan and HCTZ held. Renal diet. Document I/O's. Diuretics to encourage negative fluid balance. Bumex 2 mg IV BID ordered for today. (2) CKD (chronic kidney disease) stage 4, GFR 15-29 ml/min: Plan: CKD IV A3. Baseline creatinine 4.5 mg/dL. PCR 1.8. Followed by Dr. Dyson. Plans to continue IHD at [facility], when needed. Dr. Guillory is not available for TDC placement until next week. Will requirement close outpatient follow up for AVF placement. (3) Volume overload: Plan: Due to kidney dysfunction. Diuresing reasonably well. Kidney function stable and electrolytes acceptable. No emergent indication for dialysis. Document strict I/O's and daily weight. Renal diet: low sodium and restrict fluid intake to 1.2 L/d. (4) Bilateral pleural effusion: Plan: s/p thoracentesis with 1.7 L of transudative fluid removed. (5) Atrial fibrillation: (6) Anemia: Plan: Hgb stable. Epogen 49755 units provided 02/22. Venofer 200 mg daily x 4th dose this AM. Admission and Anticipated Discharge Date Admission Date: February 20, 2023 Subjective No acute events overnight. Good response to IV Bumex yesterday. Cory reports notable improvement today. LE edema significantly improved. He feels well. Continues to sleep poorly. Denies notable dyspnea. Review of Systems Review of Systems: All systems reviewed & are unremarkable except as noted in HPI & below Physical Exam Constitutional: well developed and + morbidly obese; no acute distress Eyes: + anicteric sclerae; pupils not irregular ENMT: Mouth: no oral mucosal abnormality and oral mucous membranes not dry Neck: normal visual inspection, trachea midline and + thick neck Respiratory: normal respiratory effort Auscultation: lungs clear to auscultation bilaterally and + diminished lung sounds Cardiovascular: Rate/Rhythm: regular rate Heart Sounds: normal S1 and normal S2 Vessels: + JVD Extremities: + edema Musculoskeletal: Extremities: no cyanosis and no clubbing Skin: normal turgor; no jaundice Neurologic: Motor/Sensory: no tremor and no asterixis Psychiatric: Orientation: alert and oriented x 3 Results & Data Vital Signs (Past 12 Hours) Vital Signs Temp Pulse Pulse Resp BP Pulse Ox O2 Del Method 02/25/23 08:00 36.8 C 97 H 18 119/74 96 Nasal Cannula 02/25/23 07:06 95 H 02/25/23 07:06 Nasal Cannula 02/25/23 07:02 99 H 18 98 Nasal Cannula 02/25/23 03:06 36.6 C 60 18 128/79 96 Nasal Cannula 02/25/23 00:00 97 H 02/24/23 22:55 92 H 16 94 02/24/23 22:34 36.7 C 92 H 18 107/64 97 Nasal Cannula O2 Flow Rate 02/25/23 08:00 2 02/25/23 07:06 02/25/23 07:06 2 02/25/23 07:02 2 02/25/23 03:06 02/25/23 00:00 02/24/23 22:55 5 02/24/23 22:34 Laboratory Results Laboratory Results - last 24 hr 02/25/23 02/25/23 06:37 06:37 WBC 6.58 RBC 3.08 L Hgb 8.9 L Hct 29.0 L MCV 94.2 MCH 28.9 MCHC 30.7 L RDW Std Deviation 52.9 H RDW Coeff of Raffaele 15.3 H Plt Count 64 L MPV 12.7 H Sodium 142 Potassium 4.1 Chloride 110 H Carbon Dioxide 25 Anion Gap 7 BUN 81 H Creatinine 5.43 H* D Est Cr Clr Drug Dosing 18.3 Est GFR ( Amer) 11.8 Est GFR (Non-Af Amer) 10.2 BUN/Creatinine Ratio 14.9 Glucose 89 Calcium 8.4 L Phosphorus 5.3 H Albumin 3.2 L PG Care Time/CCT Total # of Minutes Spent Total Time Spent with Patient: Total time spent is greater than 50% in coordination of care (as documented) at patient's floor/unit and/or counseling patient: Coding Level of Care Code 37416 SUB INP/OBS CARE 3/50MIN Diagnoses Acute kidney injury superimposed on CKD N17.9; N18.9 CKD (chronic kidney disease) stage 4, GFR 15-29 ml/min N18.4 Volume overload E87.70 Bilateral pleural effusion J90 Atrial fibrillation I48.91 Atrial fibrillation type: unspecified Anemia D64.9 (5) Atrial fibrillation Atrial fibrillation type: unspecified Qualified Code(s): I48.91 - Unspecified atrial fibrillation
[2023-02-25] MEDS ORDERED: IRON SUCROSE 200 MG in 0.9 % SODIUM CHLORIDE 100 ML IV ONE (10:45)
--- NOTE | 2023-02-25 19:55 | Hospitalist Progress Note ---
Date of Service February 25, 2023 Assessment & Plan (1) Acute kidney injury superimposed on CKD: Plan: baseline Cr about 4-4.5 with baseline CrCl 20s (c/w stage 4 CKD) he is now volume overloaded from worsening renal disease creatinine has slowly risen with diuresis although Cr did peak and came down slightly overnight K remains acceptable acid-base status remains acceptable good response to bumex overnight thus, will cont bumex 2mg IV BID weight has come down overnight and overall his breathing is better daily BMP appreciate nephrology consultation hopefully we can arceo off hemodialysis for now (2) Thrombocytopenia: Plan: moderate with platelet count 64 today cont to hold Eliquis cont to hold heparin SC chronically low platelets likely from cirrhosis acute drop from ? checked TSH - wnl B12 and folate levels are low-normal --> will supplement both repeat CBC am for stability (3) Volume overload: Plan: 2nd #1 lasix drip converted to BID bumex cont diuresis cont daily weights cont to shoot for net negative, at minimum, 1 to 1.5 L daily (4) Pleural effusion on right: Plan: s/p thoracentesis with 1500+ out fluid studies c/w transudative fluid culture neg appreciate pulmonary assistance cytologies negative (5) Atrial fibrillation: Plan: cont metoprolol 50mg daily rates acceptable Apixaban on hold due to worsening platelets resume when able (6) Hyperlipidemia: (7) Psoriasis: Plan: cont topical steroid therapy (8) CKD (chronic kidney disease) stage 4, GFR 15-29 ml/min: Plan: baseline CrCl 20s BMP am see #1 above (9) Cirrhosis: Plan: patient with prior h/o HepC s/p treatment in the past (interferon therapy?) hepC ab is positive - hepC RNA pending to determine if active infection or not liver appears cirrhotic on imaging low platelets may be from this can't rule out some of his volume overload is from cirrhosis (10) COPD (chronic obstructive pulmonary disease): Plan: cont combivent 1 puff QID stable (11) Hypertension: Plan: controlled (12) History of hepatitis C: Plan: see above in #9 (13) Diarrhea: Plan: several months in duration ordered stool BioFire + stool for c diff -- both fully negative etiology? regardless it is improved (14) DVT prophylaxis: Plan: unfortunately have to cont to hold heparin SC due to worsening platelet count (15) Right arm pain: Plan: given the presence of an IV will check a doppler - r/o DVT Plan care d/w Dr Jin from nephrology PT/OT updated by phone last evening Admission and Anticipated Discharge Date Admission Date: February 20, 2023 Subjective patient feeling some better today less dyspnea less wheezing he did use BIPAP with nasal pillows but it was <1 hour per the RTs eating well tele -a.fib, rates <100 main complaint is right biceps pain where his u/s-guided IV is located pain comes/goes IV is flushing easily by report Review of Systems Review of Systems: gen - no fevers cv - stiil with orthopnea; no chest pain pulm - no dyspnea at rest today GI - diarrhea resolved Physical Exam Physical Exam: gen - obese, looks much better today neck - JVD+ mouth - MMM heart - irregular, s1 s2, no murmur lungs - no end-exp wheezes today; still with b/l basilar rales; no increased work of breathing today abd - soft NT BS+; distended with body wall edema but improved ext - 2+ pitting edema b/l legs - maybe slightly better, pulses 2+ b/l psych - a/o x 3 skin - extensive psoriatic plaques on torso, arms, legs, back, etc Results & Data Results & Data Vital Signs (Past 12 Hours) Vital Signs Temp Pulse Pulse Resp BP Pulse Ox O2 Del Method 02/25/23 16:00 36.7 C 88 20 125/87 97 Room Air 02/25/23 16:00 89 02/25/23 15:53 88 12 94 Room Air 02/25/23 12:01 36.8 C 85 18 130/89 96 Nasal Cannula 02/25/23 08:00 36.8 C 97 H 18 119/74 96 Nasal Cannula O2 Flow Rate 02/25/23 16:00 02/25/23 16:00 02/25/23 15:53 02/25/23 12:01 2 02/25/23 08:00 2 Laboratory Results Laboratory Results - last 24 hr 02/25/23 02/25/23 06:37 06:37 WBC 6.58 RBC 3.08 L Hgb 8.9 L Hct 29.0 L MCV 94.2 MCH 28.9 MCHC 30.7 L RDW Std Deviation 52.9 H RDW Coeff of Raffaele 15.3 H Plt Count 64 L MPV 12.7 H Sodium 142 Potassium 4.1 Chloride 110 H Carbon Dioxide 25 Anion Gap 7 BUN 81 H Creatinine 5.43 H* D Est Cr Clr Drug Dosing 18.3 Est GFR ( Amer) 11.8 Est GFR (Non-Af Amer) 10.2 BUN/Creatinine Ratio 14.9 Glucose 89 Calcium 8.4 L Phosphorus 5.3 H Albumin 3.2 L PG Care Time/CCT Total # of Minutes Spent Total Time Spent with Patient: Total time spent is greater than 50% in coordination of care (as documented) at patient's floor/unit and/or counseling patient: Coding Level of Care Code 06863 SUB INP/OBS CARE 235MIN Diagnoses Acute kidney injury superimposed on CKD N17.9; N18.9 Thrombocytopenia D69.6 Volume overload E87.70 Pleural effusion on right J90 Atrial fibrillation I48.91 Atrial fibrillation type: unspecified Hyperlipidemia E78.5 Psoriasis L40.9 CKD (chronic kidney disease) stage 4, GFR 15-29 ml/min N18.4 Cirrhosis K74.60 COPD (chronic obstructive pulmonary disease) J44.9 Hypertension I10 History of hepatitis C Z86.19 Diarrhea R19.7 DVT prophylaxis Z29.9 Right arm pain M79.601 (5) Atrial fibrillation Atrial fibrillation type: unspecified Qualified Code(s): I48.91 - Unspecified atrial fibrillation
[2023-02-25] MEDS: MELATONIN 3 MG TAB PO PRN (20:52)
[2023-02-26] MEDS: ALBUTEROL HFA 8 GM INHALER INH SCH ×4 (06:59→19:24)
[2023-02-26] MEDS: IPRATROPIUM BROMIDE HFA INHALER INH SCH ×4 (06:59→19:24)
[2023-02-26 07:51] LABS: Basophils # (auto) 0.03 K/uL (0-0.2); Basophils % (auto) 0.5 %; Eosinophils # (auto) 0.32 K/uL (0-0.50); Eosinophils % (auto) 5.3 %; Hematocrit (blood only) 29.9 % (42.0-52.0); Hemoglobin 9.2 g/dl (14.0-18.0); Lymphocytes # (auto) 1.19 K/uL (1.2-3.4); Lymphocytes % (auto) 19.8 %; Mean Corpuscular Hemoglobin 28.7 pg (25.0-34.0); Mean Corpuscular Hgb Conc 30.8 g/dL (32.0-36.0); Mean Corpuscular Volume 93.1 fL (80.0-100.0); Mean Platelet Volume 12.9 fL (9.4-12.4); Monocytes # (auto) 0.41 K/uL (0.11-0.59); Monocytes % (auto) 6.8 %; Neutrophils # (auto) 4.06 K/uL (1.40-6.50); Neutrophils % (auto) 67.6 %; Platelet Count 66 K/uL (130-400); RDW Coefficient of Variation 15.4 % (11.5-14.5); RDW Standard Deviation 52.5 fL (36.4-46.3); Red Blood Count 3.21 M/uL (4.70-6.10); White Blood Count 6.01 K/ul (4.8-10.8)
[2023-02-26] MEDS: METOPROLOL SUCC 50MG EXT REL TAB PO SCH (08:35)
[2023-02-26] MEDS: CYANOCOBALAMIN (B-12) 500 MCG TABLET PO SCH (08:35)
[2023-02-26] MEDS: FOLIC ACID 1 MG TAB PO SCH (08:35)
[2023-02-26] MEDS: BETAMETHASONE VAL 0.1% CR 15 GM EXT SCH (08:35)
[2023-02-26 08:40] LABS: BUN Creatinine Ratio 15.7 (10-20); Calcium 8.6 mg/dl (8.6-10.3); Creatinine Clr Calc Pharmacy 19.2 ml/min; Est GFR (African American) 12.5 ml/min; Est GFR (Non-African American) 10.8 ml/min
--- NOTE | 2023-02-26 09:30 | Ultrasound Report ---
RIGHT UPPER EXTREMITY VENOUS DOPPLER HISTORY: right biceps pain; eval DVT COMPARISON STUDY: None. FINDINGS: The right internal jugular vein is patent. There is normal flow within the right subclavian vein. There is normal flow and compressibility within the right axillary, basilic, brachial, radial, and ulnar veins. Small amount of linear echogenic stranding and incomplete compressibility within th e mid cephalic vein. This suggests a small amount of chronic nonocclusive thrombus. IMPRESSION: 1. No DVT within the right upper extremity. 2. Small amount of nonocclusive chronic thrombus within the mid cephalic vein. ACT 112: Negative or not required by law. Electronically signed by: Rigoberto Eddy M.D. 02/26/2023 9:29 AM
[2023-02-26] MEDS ORDERED: metOLazone 5 MG TABLET PO ONE (09:46)
--- NOTE | 2023-02-26 09:56 | Nephrology Progress Note ---
Date of Service February 26, 2023 Assessment & Plan (1) Acute kidney injury superimposed on CKD: Plan: No emergent indication for dialysis at this time. Non-oliguric. Electrolytes acceptable. Medications appropriately dosed for kidney dysfunction. Losartan and HCTZ held. Renal diet. Document I/O's. Diuretics to encourage negative fluid balance. Bumex increased to 3 mg IV BID. Metolazone 5 mg this AM. (2) CKD (chronic kidney disease) stage 4, GFR 15-29 ml/min: Plan: CKD IV A3. Baseline creatinine 4.5 mg/dL. PCR 1.8. Followed by Dr. Dyson. Plans to continue IHD at [facility], when needed. Dr. Guillory will be available next week for TDC placement if needed. Will requirement close outpatient follow up for AVF placement. (3) Volume overload: Plan: Due to kidney dysfunction. Kidney function stable and electrolytes acceptable. No emergent indication for dialysis. Document strict I/O's and daily weight. Renal diet: low sodium and restrict fluid intake to 1.2 L/d. (4) Bilateral pleural effusion: Plan: s/p thoracentesis with 1.7 L of transudative fluid removed. (5) Atrial fibrillation: (6) Anemia: Plan: Hgb stable. Epogen 82965 units provided 02/22. Venofer 200 mg daily x 5th dose this AM. Admission and Anticipated Discharge Date Admission Date: February 20, 2023 Subjective No acute events overnight. Continues to struggle with sleep. Remains uncomfortable in bed. Removed pneumatic compression stockings due to discomfort. Tolerated <8 minutes BIPAP overnight. Reports orthopnea overnight. Sitting upright in bed with feet down. Increased edema in feet. Review of Systems Review of Systems: All systems reviewed & are unremarkable except as noted in HPI & below Physical Exam Constitutional: well developed and + morbidly obese; no acute distress Eyes: + anicteric sclerae; pupils not irregular ENMT: Mouth: no oral mucosal abnormality and oral mucous membranes not dry Neck: normal visual inspection, trachea midline and + thick neck Respiratory: normal respiratory effort and + tachypneic; no respiratory distress and no labored breathing Auscultation: lungs clear to auscultation bilaterally, + diminished lung sounds and + rales Cardiovascular: Rate/Rhythm: regular rate Heart Sounds: normal S1 and normal S2 Vessels: + JVD Extremities: + edema Musculoskeletal: Extremities: no cyanosis and no clubbing Skin: normal turgor; no jaundice Neurologic: Motor/Sensory: no tremor and no asterixis Psychiatric: Orientation: alert and oriented x 3 Results & Data Vital Signs (Past 12 Hours) Vital Signs Temp Pulse Pulse Resp BP Pulse Ox O2 Del Method 02/26/23 08:00 92 H 02/26/23 08:00 Room Air 02/26/23 08:00 36.7 C 89 20 118/73 97 Room Air 02/26/23 06:59 96 H 24 95 Room Air 02/26/23 03:25 36.5 C 93 H 18 143/86 H 96 Room Air 02/25/23 23:53 102 H 02/25/23 23:06 36.5 C 93 H 20 129/78 96 Room Air Laboratory Results Laboratory Results - last 24 hr 02/26/23 02/26/23 06:50 06:50 WBC 6.01 RBC 3.21 L Hgb 9.2 L Hct 29.9 L MCV 93.1 MCH 28.7 MCHC 30.8 L RDW Std Deviation 52.5 H RDW Coeff of Raffaele 15.4 H Plt Count 66 L MPV 12.9 H Immature Gran % (Auto) 0.0 Neut % (Auto) 67.6 Lymph % (Auto) 19.8 [place] % (Auto) 6.8 Eos % (Auto) 5.3 Baso % (Auto) 0.5 Neut # (Auto) 4.06 Lymph # (Auto) 1.19 L [place] # (Auto) 0.41 Eos # (Auto) 0.32 Baso # (Auto) 0.03 Immature Gran # (Auto) 0.00 L Sodium 142 Potassium 4.0 Chloride 110 H Carbon Dioxide 23 Anion Gap 9 BUN 81 H Creatinine 5.17 H* Est Cr Clr Drug Dosing 19.2 Est GFR ( Amer) 12.5 Est GFR (Non-Af Amer) 10.8 BUN/Creatinine Ratio 15.7 Glucose 87 Calcium 8.6 PG Care Time/CCT Total # of Minutes Spent Total Time Spent with Patient: Total time spent is greater than 50% in coordination of care (as documented) at patient's floor/unit and/or counseling patient: Coding Level of Care Code 12425 SUB INP/OBS CARE 3/50MIN Diagnoses Acute kidney injury superimposed on CKD N17.9; N18.9 CKD (chronic kidney disease) stage 4, GFR 15-29 ml/min N18.4 Volume overload E87.70 Bilateral pleural effusion J90 Atrial fibrillation I48.91 Atrial fibrillation type: unspecified Anemia D64.9 (5) Atrial fibrillation Atrial fibrillation type: unspecified Qualified Code(s): I48.91 - Unspecified atrial fibrillation
[2023-02-26] MEDS ORDERED: IRON SUCROSE 200 MG in 0.9 % SODIUM CHLORIDE 100 ML IV ONE (10:00)
[2023-02-26] MEDS: BUMETANIDE 2 MG in SYRINGE 0 ML IV SCH (10:00)
[2023-02-26] MEDS: BUMETANIDE 3 MG in SYRINGE 0 ML IV SCH ×2 (10:49→16:42)
[2023-02-26 11:42] LABS: Hepatitis C Vira RNA (Log) PCR 6.09 Log IU/mL (NOT DETECTED); Hepatitis C Viral RNA by PCR 1240000 IU/mL (NOT DETECTED)
--- NOTE | 2023-02-26 19:49 | Hospitalist Progress Note ---
Date of Service February 26, 2023 Assessment & Plan (1) Acute kidney injury superimposed on CKD: Plan: baseline Cr about 4-4.5 with baseline CrCl 20s (c/w stage 4 CKD) he is now volume overloaded from worsening renal disease continues with good response to bumex Dr Jin increased bumex to 3mg IV BID he also gave a single dose of metolazone today with diuresis his creatinine is slowly improving K level wnl acid-base status acceptable hopefully we can continue to ride this out and delay initiation of dialysis daily BMP appreciate nephrology consultation (2) Thrombocytopenia: Plan: moderate with platelet count 66 today cont to hold Eliquis cont to hold heparin SC chronically low platelets likely from cirrhosis acute drop from ? checked TSH - wnl B12 and folate levels are low-normal --> will supplement both repeat CBC am for stability if platelets remain in the 60s I think we can cautiously resume Eliquis (high risk of thrombus formation and DVT formation given his cirrhosis, poor mobility, a.fib, etc) (3) Volume overload: Plan: 2nd #1 lasix drip converted to BID bumex cont diuresis cont daily weights cont to shoot for net negative, at minimum, 1 to 1.5 L daily (4) Pleural effusion on right: Plan: s/p thoracentesis with 1500+ out fluid studies c/w transudative fluid culture neg appreciate pulmonary assistance cytologies negative (5) Atrial fibrillation: Plan: cont metoprolol 50mg daily rates acceptable Apixaban on hold due to low platelets resume soon if platelets remain stable (6) Hyperlipidemia: (7) Psoriasis: Plan: cont topical steroid therapy (8) CKD (chronic kidney disease) stage 4, GFR 15-29 ml/min: Plan: baseline CrCl 20s BMP am see #1 above (9) Cirrhosis: Plan: patient with prior h/o HepC s/p treatment in the past (interferon therapy?) hepC ab is positive - hepC RNA sent and is very high suggesting very active disease is HepC infection contributing to worsening renal status?? will d/w nephrology either way he should have ID or GI f/u for consideration of Rx (10) COPD (chronic obstructive pulmonary disease): Plan: cont combivent 1 puff QID stable (11) Hypertension: Plan: controlled (12) History of hepatitis C: Plan: see above in #9 (13) Diarrhea: Plan: several months in duration ordered stool BioFire + stool for c diff -- both fully negative etiology? regardless it is improved /resolved (14) DVT prophylaxis: Plan: unfortunately have to cont to hold heparin SC due to worsening platelet count resume Eliquis when able (15) Right arm pain: Plan: 2nd to malpositioned u/s-guided IV this IV has been pulled doppler w/o DVT there is a small thrombus in the cephalic vein which appears chronic per radiology hopefully can resume Eliquis soon, however Plan care d/w Dr Jin from nephrology cont PT/OT updated by phone this pm Admission and Anticipated Discharge Date Admission Date: February 20, 2023 Subjective pt had RUE u/s-guided IV removed apparently it was coiled under the skin which was the likely cause of his pain doppler with chronic appearing thrombus in a portion of the cephalic vein no DVT seen breathing slowly improving but still with considerable orthopnea no cough eating robustly tele - a.fib rates <100 BPM Review of Systems Review of Systems: cv - no cp, ongoing orthopnea, ongoing edema pulm - no significant cough; no dyspnea at rest GI - no abd pain; bloating is a little better Physical Exam Physical Exam: gen - obese, looks good, sitting at side of bed neck - after he laid down at 45 degrees -- JVD present mouth - MMM heart - irregular, s1 s2, no murmur lungs - airation much better; no wheezes; mild rales bases abd - soft NT BS+; distended with body wall edema but improved ext - 2+ pitting edema b/l legs - no change, pulses 2+ b/l psych - a/o x 3 skin - extensive psoriatic plaques on torso, arms, legs, back, etc - unchanged Results & Data Results & Data Vital Signs (Past 12 Hours) Vital Signs Temp Pulse Pulse Pulse Resp BP Pulse Ox 02/26/23 19:42 36.8 C 93 H 18 146/99 H 96 02/26/23 19:28 106 H 18 97 02/26/23 16:00 36.9 C 89 95 H 20 129/59 L 97 02/26/23 14:44 100 H 18 97 02/26/23 11:57 36.8 C 87 18 142/69 H 95 02/26/23 11:30 84 16 95 02/26/23 08:00 92 H 02/26/23 08:00 02/26/23 08:00 36.7 C 89 20 118/73 97 O2 Del Method 02/26/23 19:42 Room Air 02/26/23 19:28 Room Air 02/26/23 16:00 Room Air 02/26/23 14:44 Room Air 02/26/23 11:57 Room Air 02/26/23 11:30 Room Air 02/26/23 08:00 02/26/23 08:00 Room Air 02/26/23 08:00 Room Air Laboratory Results Laboratory Results - last 24 hr 02/24/23 02/26/23 02/26/23 07:01 06:50 06:50 WBC 6.01 RBC 3.21 L Hgb 9.2 L Hct 29.9 L MCV 93.1 MCH 28.7 MCHC 30.8 L RDW Std Deviation 52.5 H RDW Coeff of Raffaele 15.4 H Plt Count 66 L MPV 12.9 H Immature Gran % (Auto) 0.0 Neut % (Auto) 67.6 Lymph % (Auto) 19.8 [place] % (Auto) 6.8 Eos % (Auto) 5.3 Baso % (Auto) 0.5 Neut # (Auto) 4.06 Lymph # (Auto) 1.19 L [place] # (Auto) 0.41 Eos # (Auto) 0.32 Baso # (Auto) 0.03 Immature Gran # (Auto) 0.00 L Sodium 142 Potassium 4.0 Chloride 110 H Carbon Dioxide 23 Anion Gap 9 BUN 81 H Creatinine 5.17 H* Est Cr Clr Drug Dosing 19.2 Est GFR ( Amer) 12.5 Est GFR (Non-Af Amer) 10.8 BUN/Creatinine Ratio 15.7 Glucose 87 Calcium 8.6 HCV RNA (PCR) IUs/ml [id number] H HCV RNA PCR log IUs/ml 6.09 H PG Care Time/CCT Total # of Minutes Spent Total Time Spent with Patient: Total time spent is greater than 50% in coordination of care (as documented) at patient's floor/unit and/or counseling patient: Coding Level of Care Code 14784 SUB INP/OBS CARE 2/35MIN Diagnoses Acute kidney injury superimposed on CKD N17.9; N18.9 Thrombocytopenia D69.6 Volume overload E87.70 Pleural effusion on right J90 Atrial fibrillation I48.91 Atrial fibrillation type: unspecified Hyperlipidemia E78.5 Psoriasis L40.9 CKD (chronic kidney disease) stage 4, GFR 15-29 ml/min N18.4 Cirrhosis K74.60 COPD (chronic obstructive pulmonary disease) J44.9 Hypertension I10 History of hepatitis C Z86.19 Diarrhea R19.7 DVT prophylaxis Z29.9 Right arm pain M79.601 (5) Atrial fibrillation Atrial fibrillation type: unspecified Qualified Code(s): I48.91 - Unspecified atrial fibrillation
[2023-02-26] MEDS: MELATONIN 3 MG TAB PO PRN (23:03)
[2023-02-26] MEDS: ACETAMINOPHEN 325 MG TAB PO PRN (23:17)
[2023-02-27] MEDS: ALBUTEROL HFA 8 GM INHALER INH SCH ×4 (06:57→19:06)
[2023-02-27] MEDS: IPRATROPIUM BROMIDE HFA INHALER INH SCH ×4 (06:57→19:06)
[2023-02-27 07:24] LABS: Hematocrit (blood only) 28.8 % (42.0-52.0); Hemoglobin 9.1 g/dl (14.0-18.0); Mean Corpuscular Hemoglobin 28.7 pg (25.0-34.0); Mean Corpuscular Hgb Conc 31.6 g/dL (32.0-36.0); Mean Corpuscular Volume 90.9 fL (80.0-100.0); Mean Platelet Volume 12.6 fL (9.4-12.4); Platelet Count 67 K/uL (130-400); RDW Coefficient of Variation 15.3 % (11.5-14.5); RDW Standard Deviation 50.4 fL (36.4-46.3); Red Blood Count 3.17 M/uL (4.70-6.10); White Blood Count 5.63 K/ul (4.8-10.8)
[2023-02-27 07:44] LABS: Albumin Level 3.3 gm/dl (3.4-5.0); Calcium 8.7 mg/dl (8.6-10.3); Est GFR (African American) 13.2 ml/min; Est GFR (Non-African American) 11.4 ml/min; Phosphorus 4.3 mg/dl (2.5-4.9)
--- NOTE | 2023-02-27 08:59 | Nephrology Progress Note ---
Date of Service February 27, 2023 Assessment & Plan (1) Acute kidney injury superimposed on CKD: Plan: * ESA/CKD related to volume overload * Patient is nonoliguric. net 565 cc diuresis last 24 hours/7300 cc since admission in response to combination thiazide + loop diuretic * Continue Metolazone 5 mg po daily and Bumex 3 mg IV BID * Creatinine has improved from 5.7 down to 4.95 * Monitor UO, PRP * No emergent indication for dialysis at this time (2) CKD (chronic kidney disease), symptom management only: Plan: * CKD stage G5/A2 (End Stage Kidney Disease). Baseline Cr 4.5 w/ EGFR 15 cc/min. 05/[address] [facility] was negative for obstruction but did reveal nonobstructing kidney stones. Renal impairment is on the basis of vascular disease (3) Anemia: Plan: * Hgb stable * Epogen 75676 units provided 02/22 * Venofer 200 mg daily x 5 doses completed 02/26 (4) Bilateral pleural effusion: Plan: * s/p thoracentesis 02/22/23 with 1.7 L of transudative fluid removed. (5) Atrial fibrillation: Plan: * On Apixaban (6) History of hepatitis C: Plan: * Remains Hepatitis C + by PCR * Discussed w/ primary service this am. Recommend consultation w/ GI and or ID to determine whether patient would benefit from antiviral therapy Admission and Anticipated Discharge Date Admission Date: February 20, 2023 Subjective Mr. Trejo was evaluated in his hospital room this morning. He reports brisk UO in response to combination Metolazone and Bumex. He was last seen in my office 06/22. His weight at that time was 116 kg (255 lbs). He remains 20 lbs above his target weight and has LE pitting edema Review of Systems Constitutional: no fever Eyes: no problem reported Ear, Nose, Mouth, Throat: no problem reported Respiratory: no cough and no dyspnea Cardiovascular: + edema; no chest pain Gastrointestinal: no abdominal pain, no nausea, no vomiting and no diarrhea/loose stools Genitourinary: no dysuria or no hematuria Physical Exam Constitutional: not in distress Eyes: PERRL, conjunctivae normal, anicteric sclerae ENMT: external ear and nose normal, oropharynx normal Neck: trachea midline, no thyromegaly Respiratory: normal respiratory effort, lungs clear to auscultation Cardiovascular: Rate/Rhythm: regular rate and regular rhythm Extremities: + edema (3+ pretibial pitting edema) Gastrointestinal (Abdomen): Inspection/Auscultation: normal bowel sounds Percussion/Palpation: abdomen soft; abdomen nontender and no guarding Neurologic: Speech / Cognition: normal speech and normal cognition Psychiatric: Affect: euthymic affect Results & Data Vital Signs (Past 12 Hours) Vital Signs Temp Pulse Pulse Resp BP Pulse Ox O2 Del Method 02/27/23 07:00 104 H 02/27/23 07:35 36.6 C 90 18 153/111 H 97 Room Air 02/27/23 06:57 107 H 20 98 Room Air 02/27/23 02:58 36.8 C 92 H 18 102/69 93 Nasal Cannula 02/27/23 00:42 94 H 02/26/23 23:03 37 C 101 H 18 107/75 96 Nasal Cannula O2 Flow Rate 02/27/23 07:00 02/27/23 07:35 02/27/23 06:57 02/27/23 02:58 2 02/27/23 00:42 02/26/23 23:03 2 Laboratory Results Laboratory Tests 05/28/22 02/22/23 02/24/23 00:00 07:16 07:01 WBC Hgb Hct Plt Count Sodium Potassium Chloride Carbon Dioxide BUN Creatinine 4.49 H 5.77 H* Est GFR (Non-Af Amer) Calcium Phosphorus Transferrin % Sat 9 L Ferritin 17.8 Albumin 02/25/23 02/26/23 02/27/23 06:37 06:50 06:35 WBC 5.63 Hgb 9.1 L Hct 28.8 L Plt Count 67 L Sodium Potassium Chloride Carbon Dioxide BUN Creatinine 5.43 H* D 5.17 H* Est GFR (Non-Af Amer) Calcium Phosphorus Transferrin % Sat Ferritin Albumin 02/27/23 06:35 WBC Hgb Hct Plt Count Sodium 141 Potassium 4.0 Chloride 108 H Carbon Dioxide 25 BUN 79 H Creatinine 4.95 H* Est GFR (Non-Af Amer) 11.4 Calcium 8.7 Phosphorus 4.3 D Transferrin % Sat Ferritin Albumin 3.3 L PG Care Time/CCT Total # of Minutes Spent Total Time Spent with Patient: Total time spent is greater than 50% in coordination of care (as documented) at patient's floor/unit and/or counseling patient: Coding Level of Care Code 96875 SUB INP/OBS CARE MIN Diagnoses Acute kidney injury superimposed on CKD N17.9; N18.9 CKD (chronic kidney disease), symptom management only N18.9 Anemia D64.9 Bilateral pleural effusion J90 Atrial fibrillation I48.91 Atrial fibrillation type: unspecified History of hepatitis C Z86.19 (5) Atrial fibrillation Atrial fibrillation type: unspecified Qualified Code(s): I48.91 - Unspecified atrial fibrillation
[2023-02-27] MEDS: APIXABAN 5 MG TABLET PO SCH ×2 (09:17→20:10)
[2023-02-27] MEDS: METOPROLOL SUCC 50MG EXT REL TAB PO SCH (09:24)
[2023-02-27] MEDS: CYANOCOBALAMIN (B-12) 500 MCG TABLET PO SCH (09:24)
[2023-02-27] MEDS: BUMETANIDE 3 MG in SYRINGE 0 ML IV SCH ×2 (09:24→17:59)
[2023-02-27] MEDS: FOLIC ACID 1 MG TAB PO SCH (09:24)
[2023-02-27] MEDS: BETAMETHASONE VAL 0.1% CR 15 GM EXT SCH (09:24)
[2023-02-27] MEDS ORDERED: metOLazone 5 MG TABLET PO SCH (10:45)
--- NOTE | 2023-02-27 16:48 | Hospitalist Progress Note ---
Date of Service February 27, 2023 Assessment & Plan (1) Volume overload: Plan: 2nd to ESA on advanced CKD he also likely has HepC Cirrhosis and this is also contributing to volume status pulm edema/volume overload slowly improving cont IV bumex 3mg BID cont metolazone 5mg qam prior to AM bumex cont daily weights cont to shoot for net negative, at minimum, 1 to 1.5 L daily 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) continues with good response to bumex continue metolazone daily with diuresis his creatinine is slowly improving -- Cr today <5 K level wnl acid-base status acceptable hopefully we can continue to ride this out and delay initiation of dialysis daily BMP appreciate nephrology assistance (3) Thrombocytopenia: Plan: moderate with platelet count 60s for several days Eliquis cautiously resumed no bleeding issues suspect chronically low platelets likely from cirrhosis acute drop uncertain but fortunately the count is staying in the 60s checked TSH - wnl B12 and folate levels both low-normal --> supplementing both repeat CBC am for stability (4) Pleural effusion on right: Plan: s/p thoracentesis with 1500+ out fluid studies c/w transudative fluid from renal and/or liver disease culture neg cytologies negative (5) Atrial fibrillation: Plan: cont metoprolol 50mg daily rates borderline fast may need 75mg/day resumed Eliquis for stroke prevention (6) Hyperlipidemia: (7) Psoriasis: Plan: cont topical steroid therapy (8) CKD (chronic kidney disease) stage 4, GFR 15-29 ml/min: Plan: baseline CrCl 20s BMP am see #2 above (9) Cirrhosis: Plan: patient with prior h/o HepC s/p treatment in the past (interferon therapy?) hepC ab remains positive - hepC RNA returned very high c/w active disease CT a/p this admission with findings c/w cirrhosis post discharge he will need ID or GI f/u for consideration of Rx of active HepC disease (10) COPD (chronic obstructive pulmonary disease): Plan: cont combivent 1 puff QID stable (11) Hypertension: Plan: controlled amlodipine, losartan, and HCTZ all on hold remains on metoprolol xl (12) History of hepatitis C: Plan: see above in #9 (13) Diarrhea: Plan: several months in duration ordered stool BioFire + stool for c diff -- both fully negative etiology? could consider colestipol or similar (14) DVT prophylaxis: Plan: resumed Eliquis (15) Right arm pain: Plan: 2nd to malpositioned u/s-guided IV this IV has been pulled doppler w/o DVT there is a small thrombus in the cephalic vein which appears chronic per radiology Eliquis has been resumed Plan care d/w Dr Dyson from nephrology cont PT/OT updated by phone yesterday am Admission and Anticipated Discharge Date Admission Date: February 20, 2023 Subjective patient slept well last pm he decided to sleep in the recliner and his breathing was much more comfortable sleeping there as opposed to the hospital bed overall feeling good with robust appetite we discussed that his HepC testing shows active disease with very high HepC RNA he had initiated Rx of HepC years ago but "never finished the treatment" continues with significant LE edema tele - a.fib - rates upper 90s at rest, >100 with minimal activity Review of Systems Review of Systems: gen - no fevers; eating well cv - continues with orthopnea pulm - ongoing GUSTAFSON but no dyspnea at rest GI - ongoing abd distension; had large liquid stool today; no N/V Physical Exam Physical Exam: gen - obese, looks good, sitting in chair - just finished his dinner mouth - MMM heart - irregular, s1 s2, no murmur; borderline tachy lungs - no wheezes; mild rales bases only; decreased BS right base abd - soft NT BS+; distended with body wall edema/ascites - no change from yesterday ext - 2+ pitting edema b/l legs - no change, pulses 2+ b/l psych - a/o x 3 skin - extensive psoriatic plaques on torso, arms, legs, back, etc - unchanged Results & Data Results & Data Vital Signs (Past 12 Hours) Vital Signs Temp Pulse Pulse Resp BP Pulse Ox O2 Del Method 02/27/23 15:21 36.7 C 96 H 18 145/106 H 95 Room Air 02/27/23 14:54 94 H 16 95 Room Air 02/27/23 11:22 36.7 C 96 H 20 133/93 95 Room Air 02/27/23 10:57 96 H 18 95 Room Air 02/27/23 07:00 104 H 02/27/23 07:35 36.6 C 90 18 153/111 H 97 Room Air 02/27/23 06:57 107 H 20 98 Room Air Laboratory Results Laboratory Results - last 24 hr 02/27/23 02/27/23 06:35 06:35 WBC 5.63 RBC 3.17 L Hgb 9.1 L Hct 28.8 L MCV 90.9 MCH 28.7 MCHC 31.6 L RDW Std Deviation 50.4 H RDW Coeff of Raffaele 15.3 H Plt Count 67 L MPV 12.6 H Sodium 141 Potassium 4.0 Chloride 108 H Carbon Dioxide 25 Anion Gap 8 BUN 79 H Creatinine 4.95 H* Est Cr Clr Drug Dosing 20.0 Est GFR ( Amer) 13.2 Est GFR (Non-Af Amer) 11.4 BUN/Creatinine Ratio 16.0 Glucose 90 Calcium 8.7 Phosphorus 4.3 D Albumin 3.3 L PG Care Time/CCT Total # of Minutes Spent Total Time Spent with Patient: Total time spent is greater than 50% in coordination of care (as documented) at patient's floor/unit and/or counseling patient: Coding Level of Care Code 23588 SUB INP/OBS CARE 2/35MIN Diagnoses Volume overload E87.70 Acute kidney injury superimposed on CKD N17.9; N18.9 Thrombocytopenia D69.6 Pleural effusion on right J90 Atrial fibrillation I48.91 Atrial fibrillation type: unspecified Hyperlipidemia E78.5 Psoriasis L40.9 CKD (chronic kidney disease) stage 4, GFR 15-29 ml/min N18.4 Cirrhosis K74.60 COPD (chronic obstructive pulmonary disease) J44.9 Hypertension I10 History of hepatitis C Z86.19 Diarrhea R19.7 DVT prophylaxis Z29.9 Right arm pain M79.601 (5) Atrial fibrillation Atrial fibrillation type: unspecified Qualified Code(s): I48.91 - Unspecified atrial fibrillation
[2023-02-28] MEDS: IPRATROPIUM BROMIDE HFA INHALER INH SCH ×4 (07:12→19:25)
[2023-02-28] MEDS: ALBUTEROL HFA 8 GM INHALER INH SCH ×4 (07:12→19:25)
[2023-02-28 07:40] LABS: Hematocrit (blood only) 28.7 % (42.0-52.0); Hemoglobin 9.1 g/dl (14.0-18.0); Mean Corpuscular Hemoglobin 28.8 pg (25.0-34.0); Mean Corpuscular Hgb Conc 31.7 g/dL (32.0-36.0); Mean Corpuscular Volume 90.8 fL (80.0-100.0); Mean Platelet Volume 11.9 fL (9.4-12.4); Platelet Count 72 K/uL (130-400); RDW Coefficient of Variation 15.2 % (11.5-14.5); RDW Standard Deviation 50.3 fL (36.4-46.3); Red Blood Count 3.16 M/uL (4.70-6.10); White Blood Count 6.73 K/ul (4.8-10.8)
[2023-02-28 08:01] LABS: Calcium 8.5 mg/dl (8.6-10.3); Creatinine Clr Calc Pharmacy 20.7 ml/min; Est GFR (African American) 13.9 ml/min
[2023-02-28] MEDS: METOPROLOL SUCC 25MG EXT REL TAB PO SCH (09:05)
[2023-02-28] MEDS: APIXABAN 5 MG TABLET PO SCH ×2 (09:05→21:07)
[2023-02-28] MEDS: metOLazone 5 MG TABLET PO SCH (09:06)
[2023-02-28] MEDS: FOLIC ACID 1 MG TAB PO SCH (09:06)
[2023-02-28] MEDS: CYANOCOBALAMIN (B-12) 500 MCG TABLET PO SCH (09:06)
[2023-02-28] MEDS: BETAMETHASONE VAL 0.1% CR 15 GM EXT SCH (09:06)
[2023-02-28] MEDS: BUMETANIDE 3 MG in SYRINGE 0 ML IV SCH ×2 (09:06→18:10)
--- NOTE | 2023-02-28 09:06 | Nephrology Progress Note ---
Date of Service February 28, 2023 Assessment & Plan (1) Acute kidney injury superimposed on CKD: Plan: * ESA/CKD related to volume overload * Patient is nonoliguric. net 1165 cc diuresis last 24 hours in response to combination thiazide + loop diuretic * Continue Metolazone 5 mg po daily and Bumex 3 mg IV BID * Creatinine has improved from 5.7 down to 4.75. Patient is nearing baseline kidney function * Monitor UO, PRP. Hopefully will be able to avoid HD this hospitalization and send home with diuretics and low Na diet. He will need AVF creation soon as outpatient * No emergent indication for dialysis at this time (2) CKD (chronic kidney disease), symptom management only: Plan: * CKD stage G5/A2 (End Stage Kidney Disease). Baseline Cr 4.5 w/ EGFR 15 cc/min. 05/[address] [facility] was negative for obstruction but did reveal nonobstructing kidney stones. Renal impairment is on the basis of vascular disease (3) Anemia: Plan: * Hgb stable * Epogen 20959 units provided 02/22 * Venofer 200 mg daily x 5 doses completed 02/26 (4) Bilateral pleural effusion: Plan: * s/p thoracentesis 02/22/23 with 1.7 L of transudative fluid removed. (5) Atrial fibrillation: Plan: * On Apixaban (6) History of hepatitis C: Plan: * Remains Hepatitis C + by PCR * Discussed w/ primary service. Recommend consultation w/ GI and or ID to determine whether patient would benefit from antiviral therapy Admission and Anticipated Discharge Date Admission Date: February 20, 2023 Subjective Mr. Trejo was evaluated in his hospital room this morning. He reports brisk UO in response to combination Metolazone and Bumex. Mr. Trejo notes that his LE swelling is improved. He voices no new medical concerns Review of Systems Constitutional: no fever Eyes: no problem reported Ear, Nose, Mouth, Throat: no problem reported Respiratory: no cough and no dyspnea Cardiovascular: + edema; no chest pain Gastrointestinal: no abdominal pain, no nausea, no vomiting and no diarrhe a/loose stools Genitourinary: no dysuria or no hematuria Physical Exam Constitutional: not in distress Eyes: PERRL, conjunctivae normal, anicteric sclerae ENMT: external ear and nose normal, oropharynx normal Neck: trachea midline, no thyromegaly Respiratory: normal respiratory effort, lungs clear to auscultation Cardiovascular: Rate/Rhythm: regular rate and regular rhythm Extremities: + edema (2+ pretibial pitting edema) Gastrointestinal (Abdomen): Inspection/Auscultation: normal bowel sounds Percussion/Palpation: abdomen soft; abdomen nontender and no guarding Neurologic: Speech / Cognition: normal speech and normal cognition Psychiatric: Affect: euthymic affect Results & Data Vital Signs (Past 12 Hours) Vital Signs Temp Pulse Pulse Pulse Resp BP Pulse Ox 02/28/23 08:22 36.5 C 88 18 147/81 H 95 02/28/23 07:00 97 H 02/28/23 07:12 78 16 95 02/28/23 02:51 36.6 C 98 H 18 149/106 H 94 02/27/23 23:56 95 H 02/27/23 22:39 36.4 C L 94 H 18 152/96 H 94 O2 Del Method O2 Flow Rate 02/28/23 08:22 Room Air 02/28/23 07:00 02/28/23 07:12 Room Air 02/28/23 02:51 Room Air 02/27/23 23:56 02/27/23 22:39 Nasal Cannula 2 Laboratory Results Laboratory Tests 02/27/23 02/28/23 02/28/23 06:35 06:43 06:43 WBC 6.73 Hgb 9.1 L Hct 28.7 L Plt Count 72 L Sodium 140 Potassium 4.0 Chloride 106 Carbon Dioxide 25 BUN 76 H Creatinine 4.75 H* Glucose 87 Calcium 8.5 L Albumin 3.3 L PG Care Time/CCT Total # of Minutes Spent Total Time Spent with Patient: Total time spent is greater than 50% in coordination of care (as documented) at patient's floor/unit and/or counseling patient: Coding Level of Care Code 13129 SUB INP/OBS CARE 3/50MIN Diagnoses Acute kidney injury superimposed on CKD N17.9; N18.9 CKD (chronic kidney disease), symptom management only N18.9 Anemia D64.9 Bilateral pleural effusion J90 Atrial fibrillation I48.91 Atrial fibrillation type: unspecified History of hepatitis C Z86.19 (5) Atrial fibrillation Atrial fibrillation type: unspecified Qualified Code(s): I48.91 - Unspecified atrial fibrillation
--- NOTE | 2023-02-28 20:13 | Hospitalist Progress Note ---
Date of Service February 28, 2023 Assessment & Plan (1) Volume overload: Plan: improving 2nd to ESA on advanced CKD he also likely has HepC Cirrhosis and this is also contributing to volume status cont IV bumex 3mg BID cont metolazone 5mg qam prior to AM bumex cont daily weights 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) continues with good response to bumex continue metolazone daily with diuresis his creatinine is slowly improving -- Cr today again <5 K level wnl acid-base status acceptable fortunately we can cont to delay initiation of dialysis daily BMP appreciate nephrology assistance (3) Thrombocytopenia: Plan: moderate with platelet count 60s for several days modest improvement today no bleeding from any location cont cautious use of Eliquis suspect chronically low platelets likely from cirrhosis acute drop uncertain but fortunately the count is stable checked TSH - wnl B12 and folate levels both low-normal --> supplementing both repeat CBC am for stability (4) Pleural effusion on right: Plan: s/p thoracentesis with 1500+ out fluid studies c/w transudative fluid from renal and/or liver disease culture neg cytologies negative (5) Atrial fibrillation: Plan: cont metoprolol but increased to 75mg daily cont Eliquis for stroke prevention (6) Hyperlipidemia: (7) Psoriasis: Plan: cont topical steroid therapy (8) CKD (chronic kidney disease) stage 4, GFR 15-29 ml/min: Plan: baseline CrCl 20s BMP am see #2 above ESA improving (9) Cirrhosis: Plan: patient with prior h/o HepC s/p treatment in the past (interferon therapy?) hepC ab remains positive - hepC RNA returned very high c/w active disease CT a/p this admission with findings c/w cirrhosis post discharge he will need ID or GI f/u for consideration of Rx of active HepC disease (10) COPD (chronic obstructive pulmonary disease): Plan: cont combivent 1 puff QID stable (11) Hypertension: Plan: controlled amlodipine, losartan, and HCTZ all on hold remains on metoprolol xl - titrated today for a.fib (12) History of hepatitis C: Plan: see above in #9 (13) Diarrhea: Plan: several months in duration ordered stool BioFire + stool for c diff -- both fully negative etiology? could consider colestipol or similar will speak with him about this (14) DVT prophylaxis: Plan: Eduardo (15) Right arm pain: Plan: 2nd to malpositioned u/s-guided IV this IV has been pulled doppler w/o DVT there is a small thrombus in the cephalic vein which appears chronic per radiology Eliquis has been resumed Plan cont PT/OT Admission and Anticipated Discharge Date Admission Date: February 20, 2023 Subjective tele overnight - a.fib, rates still not optimal he feels very good slept decently again overnight still can't lay flat but he is otherwise w/o dyspnea if he is sitting in chair good appetite LE edema and abd ascites improving Review of Systems Review of Systems: cv - no chest pain; ongoing orthopnea pulm - no dyspnea at rest GI - ongoing diarrhea - but no worse than previous; no n/v; no pain Physical Exam Physical Exam: gen - obese, NAD mouth - MMM heart - irregular, s1 s2, no murmur; tachy lungs - no wheezes; minimal rales bases only; decreased BS right base abd - soft NT BS+; distension improving ext - 2+ pitting edema b/l legs - no change, pulses 2+ b/l psych - a/o x 3 skin - extensive psoriatic plaques on torso, arms, legs, back, etc - unchanged Results & Data Results & Data Vital Signs (Past 12 Hours) Vital Signs Temp Pulse Resp BP Pulse Ox O2 Del Method 02/28/23 19:18 98 H 16 96 Room Air 02/28/23 19:22 36.6 C 94 H 18 150/101 H 96 Room Air 02/28/23 15:47 36.9 C 87 20 167/125 H 97 Room Air 02/28/23 15:14 85 18 94 Room Air 02/28/23 11:33 36.7 C 95 H 20 146/104 H 97 Room Air 02/28/23 11:10 85 18 95 Room Air 02/28/23 08:22 36.5 C 88 18 147/81 H 95 Room Air Laboratory Results Laboratory Results - last 24 hr 02/28/23 02/28/23 06:43 06:43 WBC 6.73 RBC 3.16 L Hgb 9.1 L Hct 28.7 L MCV 90.8 MCH 28.8 MCHC 31.7 L RDW Std Deviation 50.3 H RDW Coeff of Raffaele 15.2 H Plt Count 72 L MPV 11.9 Sodium 140 Potassium 4.0 Chloride 106 Carbon Dioxide 25 Anion Gap 9 BUN 76 H Creatinine 4.75 H* Est Cr Clr Drug Dosing 20.7 Est GFR ( Amer) 13.9 Est GFR (Non-Af Amer) 12.0 BUN/Creatinine Ratio 16.0 Glucose 87 Calcium 8.5 L PG Care Time/CCT Total # of Minutes Spent Total Time Spent with Patient: Total time spent is greater than 50% in coordination of care (as documented) at patient's floor/unit and/or counseling patient: Coding Level of Care Code 32096 SUB INP/OBS CARE 2/35MIN Diagnoses Volume overload E87.70 Acute kidney injury superimposed on CKD N17.9; N18.9 Thrombocytopenia D69.6 Pleural effusion on right J90 Atrial fibrillation I48.91 Atrial fibrillation type: unspecified Hyperlipidemia E78.5 Psoriasis L40.9 CKD (chronic kidney disease) stage 4, GFR 15-29 ml/min N18.4 Cirrhosis K74.60 COPD (chronic obstructive pulmonary disease) J44.9 Hypertension I10 History of hepatitis C Z86.19 Diarrhea R19.7 DVT prophylaxis Z29.9 Right arm pain M79.601 (5) Atrial fibrillation Atrial fibrillation type: unspecified Qualified Code(s): I48.91 - Unspecified atrial fibrillation
[2023-03-01] MEDS: ACETAMINOPHEN 325 MG TAB PO PRN ×2 (03:29→22:44)
[2023-03-01 07:19] LABS: BUN Creatinine Ratio 16.2 (10-20); Calcium 8.3 mg/dl (8.6-10.3); Creatinine Clr Calc Pharmacy 21.1 ml/min; Est GFR (African American) 14.3 ml/min; Est GFR (Non-African American) 12.3 ml/min; Potassium 4.1 mmol/L (3.5-5.1)
[2023-03-01] MEDS: IPRATROPIUM BROMIDE HFA INHALER INH SCH ×3 (07:22→19:50)
[2023-03-01] MEDS: ALBUTEROL HFA 8 GM INHALER INH SCH ×3 (07:23→19:50)
[2023-03-01 07:33] LABS: Hematocrit (blood only) 26.8 % (42.0-52.0); Hemoglobin 8.8 g/dl (14.0-18.0); Mean Corpuscular Hemoglobin 29.2 pg (25.0-34.0); Mean Corpuscular Hgb Conc 32.8 g/dL (32.0-36.0); Mean Platelet Volume 12.7 fL (9.4-12.4); Platelet Count 80 K/uL (130-400); RDW Coefficient of Variation 15.3 % (11.5-14.5); RDW Standard Deviation 49.5 fL (36.4-46.3); Red Blood Count 3.01 M/uL (4.70-6.10); White Blood Count 6.88 K/ul (4.8-10.8)
[2023-03-01] MEDS: APIXABAN 5 MG TABLET PO SCH ×2 (08:24→20:12)
[2023-03-01] MEDS: FOLIC ACID 1 MG TAB PO SCH (08:25)
[2023-03-01] MEDS: BUMETANIDE 3 MG in SYRINGE 0 ML IV SCH ×2 (08:25→17:24)
[2023-03-01] MEDS: METOPROLOL SUCC 25MG EXT REL TAB PO SCH (08:25)
[2023-03-01] MEDS: metOLazone 5 MG TABLET PO SCH (08:25)
[2023-03-01] MEDS: CYANOCOBALAMIN (B-12) 500 MCG TABLET PO SCH (08:25)
[2023-03-01] MEDS: BETAMETHASONE VAL 0.1% CR 15 GM EXT SCH (08:32)
--- NOTE | 2023-03-01 08:46 | Nephrology Progress Note ---
Date of Service March 01, 2023 Assessment & Plan (1) Acute kidney injury superimposed on CKD: Plan: * ESA/CKD related to volume overload * Patient is nonoliguric. net 1133 cc diuresis last 24 hours in response to combination thiazide + loop diuretic * Continue Metolazone 5 mg po daily and Bumex 3 mg IV BID today. Would like to try to alleviate foot swelling. Will consider changing to oral diuretics in am * Creatinine has improved from 5.7 down to 4.64. Patient is nearing baseline kidney function * Monitor UO, PRP. Hopefully will be able to avoid HD this hospitalization and send home with diuretics and low Na diet. He will need AVF creation soon as outpatient * No emergent indication for dialysis at this time * Will consult dietitian for education on low Na diet (2) CKD (chronic kidney disease), symptom management only: Plan: * CKD stage G5/A2 (End Stage Kidney Disease). Baseline Cr 4.5 w/ EGFR 15 cc/min. 05/[address] [facility] was negative for obstruction but did reveal nonobstructing kidney stones. Renal impairment is on the basis of vascular disease (3) Anemia: Plan: * Mild anemia * Will provide Epogen 10,000 units SQ x1 today * Venofer 200 mg daily x 5 doses completed 02/26 (4) Bilateral pleural effusion: Plan: * s/p thoracentesis 02/22/23 with 1.7 L of transudative fluid removed. (5) Atrial fibrillation: Plan: * On Apixaban (6) History of hepatitis C: Plan: * Remains Hepatitis C + by PCR * Discussed w/ primary service. Recommend consultation w/ GI and or ID to determine whether patient would benefit from antiviral therapy Admission and Anticipated Discharge Date Admission Date: February 20, 2023 Subjective Mr. Trejo was evaluated in his hospital room this morning. He continues to respond well to combination Metolazone and IV Bumex but notes that he still has significant bilateral foot swelling Review of Systems Constitutional: no fever Eyes: no problem reported Ear, Nose, Mouth, Throat: no problem reported Respiratory: no cough and no dyspnea Cardiovascular: + edema; no chest pain Gastrointestinal: no abdominal pain, no nausea, no vomiting and no diarrhea/loose stools Genitourinary: no dysuria or no hematuria Physical Exam Constitutional: not in distress Eyes: PERRL, conjunctivae normal, anicteric sclerae ENMT: external ear and nose normal, oropharynx normal Neck: trachea midline, no thyromegaly Respiratory: normal respiratory effort, lungs clear to auscultation Cardiovascular: Rate/Rhythm: regular rate and regular rhythm Extremities: + edema (1+ pretibial edema, 3+ pitting pedal edema) Gastrointestinal (Abdomen): Inspection/Auscultation: normal bowel sounds Percussion/Palpation: abdomen soft; abdomen nontender and no guarding Neurologic: Speech / Cognition: normal speech and normal cognition Psychiatric: Affect: euthymic affect Results & Data Vital Signs (Past 12 Hours) Vital Signs Temp Pulse Pulse Pulse Resp BP Pulse Ox 03/01/23 07:39 36.6 C 95 H 20 157/104 H 95 03/01/23 07:23 90 18 95 03/01/23 03:34 36.8 C 90 20 138/98 96 02/28/23 22:15 88 02/28/23 22:32 36.6 C 89 22 149/100 H 94 O2 Del Method 03/01/23 07:39 Room Air 03/01/23 07:23 Room Air 03/01/23 03:34 Room Air 02/28/23 22:15 02/28/23 22:32 Room Air Laboratory Results Laboratory Tests 03/01/23 03/01/23 06:29 06:34 WBC 6.88 Hgb 8.8 L Hct 26.8 L Plt Count 80 L Sodium 138 Potassium 4.1 Chloride 106 Carbon Dioxide 24 BUN 75 H Creatinine 4.64 H* Glucose 85 PG Care Time/CCT Total # of Minutes Spent Total Time Spent with Patient: Total time spent is greater than 50% in coordination of care (as documented) at patient's floor/unit and/or counseling patient: Coding Level of Care Code 65375 SUB INP/OBS CARE 3/50MIN Diagnoses Acute kidney injury superimposed on CKD N17.9; N18.9 CKD (chronic kidney disease), symptom management only N18.9 Anemia D64.9 Bilateral pleural effusion J90 Atrial fibrillation I48.91 Atrial fibrillation type: unspecified History of hepatitis C Z86.19 (5) Atrial fibrillation Atrial fibrillation type: unspecified Qualified Code(s): I48.91 - Unspecified atrial fibrillation
[2023-03-01] MEDS ORDERED: METOPROLOL SUCC 25MG EXT REL TAB PO STA (09:34)
[2023-03-01] MEDS ORDERED: EPOETIN ALFA 10,000 UNITS/ML VIAL SQ ONE (09:39)
--- NOTE | 2023-03-01 17:15 | Hospitalist Progress Note ---
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) continues with good response to bumex continue metolazone daily with diuresis his creatinine is slowly improving -- Cr today 4.6 K level wnl acid-base status acceptable fortunately we can cont to delay initiation of dialysis daily BMP appreciate nephrology assistance (3) Thrombocytopenia: Plan: moderate with platelet count 60s for several days modest improvement today once again (up to 80) no bleeding from any location cont cautious use of Eliquis suspect chronically low platelets likely from cirrhosis acute drop uncertain but fortunately the count is stable checked TSH - wnl B12 and folate levels both low-normal --> supplementing both repeat CBC am for stability (4) Pleural effusion on right: Plan: s/p thoracentesis with 1500+ out fluid studies c/w transudative fluid from renal and/or liver disease culture neg cytologies negative he continues to have decreased BS R base on exam - thus, obtain 2-view cxr to ensure no reaccumulation of effusion patient also had collapse of RML and RLL on CT chest earlier this stay; it is possible those lobes have simply not re-expanded (CT chest - 02/20/23 -- "Partial collapse of the right middle and lower lobes. No obstructing endobronchial lesion identified on this exam.") if cxr today continues to show issues with right lung re-consult pulmonary (5) Atrial fibrillation: Plan: cont metoprolol succinate but increase to 100mg daily for better rate control cont Eliquis for stroke prevention (6) Hyperlipidemia: (7) Psoriasis: Plan: cont topical steroid therapy he really should follow with dermatology given the severity of his psoriasis (8) CKD (chronic kidney disease) stage 4, GFR 15-29 ml/min: Plan: baseline CrCl 20s BMP am see #2 above ESA improving (9) Cirrhosis: Plan: patient with prior h/o HepC s/p treatment in the past (interferon therapy?) hepC ab remains positive - hepC RNA returned very high c/w active disease CT a/p this admission with findings c/w cirrhosis post discharge he will need ID or GI f/u for consideration of Rx of active HepC disease [facility] nurse navigator investigating who we can refer to (10) COPD (chronic obstructive pulmonary disease): Plan: cont combivent 1 puff QID stable (11) Hypertension: Plan: controlled amlodipine, losartan, and HCTZ all stopped; would not continue any of these at discharge remains on metoprolol xl - titrated again today for a.fib (12) History of hepatitis C: Plan: see above in #9 (13) Diarrhea: Plan: several months in duration ordered stool BioFire + stool for c diff -- both fully negative etiology? add colestipol 1gm qam if diarrhea persists he should see GI for consideration of colonoscopy (r/o microscopic colitis, other etiologies) (14) DVT prophylaxis: Plan: Eliquis (15) Right arm pain: Plan: 2nd to malpositioned u/s-guided IV this IV has been pulled doppler w/o DVT there is a small thrombus in the cephalic vein which appears chronic per radiology Eliquis has been resumed Plan cont PT/OT making excellent progress Admission and Anticipated Discharge Date Admission Date: February 20, 2023 Subjective tele overnight - a.fib rates still fast with minimal activity (numerous episodes of rates well over 100) pt sitting in chair during the visit he feels well only complaint is mild orthopnea otherwise feeling well he is pleased with his abdomen and legs - edema improving in both locations he states he is committed to watching his diet & fluid intake when he leaves [facility] Review of Systems Review of Systems: gen - eating well, decent energy cv - unchanged orthopnea; improving edema; no chest pain pulm - no cough GI - no pain or N/V; ongoing diarrhea - typically occurs right after eating; no foul smell, no mucous Physical Exam Physical Exam: gen - obese, NAD , sitting in chair - looks good mouth - MMM heart - irregular, s1 s2, no murmur; rate likely <100 lungs - no wheezes; decreased BS right base; scant rales left base abd - soft NT BS+; distension improving; large scar midline lower abdomen; firm area (subcu edema) just superior to the scar; no hernia ext - 2+ pitting edema b/l legs - no change, pulses 2+ b/l psych - a/o x 3 skin - extensive psoriatic plaques on torso, arms, legs, back, etc - unchanged Results & Data Results & Data Vital Signs (Past 12 Hours) Vital Signs Temp Pulse Pulse Resp BP Pulse Ox O2 Del Method 03/01/23 16:09 37.0 C 87 20 152/108 H 97 Room Air 03/01/23 12:11 87 16 95 Room Air 03/01/23 11:33 36.5 C 82 18 136/86 95 Room Air 03/01/23 07:39 36.6 C 95 H 20 157/104 H 95 Room Air 03/01/23 07:23 90 18 95 Room Air Laboratory Results Laboratory Results - last 24 hr 03/01/23 03/01/23 06:29 06:34 WBC 6.88 RBC 3.01 L Hgb 8.8 L Hct 26.8 L MCV 89.0 MCH 29.2 MCHC 32.8 RDW Std Deviation 49.5 H RDW Coeff of Raffaele 15.3 H Plt Count 80 L MPV 12.7 H Sodium 138 Potassium 4.1 Chloride 106 Carbon Dioxide 24 Anion Gap 8 BUN 75 H Creatinine 4.64 H* Est Cr Clr Drug Dosing 21.1 Est GFR ( Amer) 14.3 Est GFR (Non-Af Amer) 12.3 BUN/Creatinine Ratio 16.2 Glucose 85 Calcium 8.3 L PG Care Time/CCT Total # of Minutes Spent Total Time Spent with Patient: Total time spent is greater than 50% in coordination of care (as documented) at patient's floor/unit and/or counseling patient: Coding Level of Care Code 65011 SUB INP/OBS CARE 2/35MIN Diagnoses Volume overload E87.70 Acute kidney injury superimposed on CKD N17.9; N18.9 Thrombocytopenia D69.6 Pleural effusion on right J90 Atrial fibrillation I48.91 Atrial fibrillation type: unspecified Hyperlipidemia E78.5 Psoriasis L40.9 CKD (chronic kidney disease) stage 4, GFR 15-29 ml/min N18.4 Cirrhosis K74.60 COPD (chronic obstructive pulmonary disease) J44.9 Hypertension I10 History of hepatitis C Z86.19 Diarrhea R19.7 DVT prophylaxis Z29.9 Right arm pain M79.601 (5) Atrial fibrillation Atrial fibrillation type: unspecified Qualified Code(s): I48.91 - Unspecified atrial fibrillation
[2023-03-01] MEDS: MELATONIN 3 MG TAB PO PRN (22:44)
[2023-03-02] MEDS ORDERED: FUROSEMIDE INJ 20 MG/2 ML VIAL IV ONE (03:39)
[2023-03-02] MEDS: ALBUTEROL HFA 8 GM INHALER INH PRN (03:55)
[2023-03-02 06:26] LABS: Hematocrit (blood only) 29.6 % (42.0-52.0); Hemoglobin 9.5 g/dl (14.0-18.0); Mean Corpuscular Hemoglobin 28.7 pg (25.0-34.0); Mean Corpuscular Hgb Conc 32.1 g/dL (32.0-36.0); Mean Corpuscular Volume 89.4 fL (80.0-100.0); Mean Platelet Volume 12.4 fL (9.4-12.4); Platelet Count 89 K/uL (130-400); RDW Coefficient of Variation 15.1 % (11.5-14.5); RDW Standard Deviation 49.1 fL (36.4-46.3); Red Blood Count 3.31 M/uL (4.70-6.10); White Blood Count 6.91 K/ul (4.8-10.8)
[2023-03-02 06:34] LABS: BUN Creatinine Ratio 15.6 (10-20); Calcium 8.4 mg/dl (8.6-10.3); Creatinine Clr Calc Pharmacy 19.3 ml/min; Est GFR (African American) 12.8 ml/min; Potassium 4.4 mmol/L (3.5-5.1)
[2023-03-02] MEDS: ALBUTEROL HFA 8 GM INHALER INH SCH ×2 (07:39→19:11)
[2023-03-02] MEDS: IPRATROPIUM BROMIDE HFA INHALER INH SCH ×2 (07:40→19:10)
[2023-03-02] MEDS: COLESTIPOL HCL 1 GM TAB PO SCH (07:41)
--- NOTE | 2023-03-02 08:04 | XRay Report ---
XR chest 2V PA/lateral HISTORY: previous R effusion, decreased BS right base COMPARISON: Chest 02/23/2023. FINDINGS: No pneumothorax. There are low lung volumes. The cardiac silhouette remains enlarged. Right basilar airspace opacity has improved. There are small bilateral pleural effusions. No evidence for pulmonary edema. IMPRESSION: 1. Interval improvement in the right base airspace opacity. 2. Cardiomegaly and small bilateral pleural effusions are noted. ACT 112: Negative or not required by law. Electronically signed by: Rigoberto Eddy M.D. 03/02/2023 7:17 AM
[2023-03-02] MEDS: FOLIC ACID 1 MG TAB PO SCH (08:48)
[2023-03-02] MEDS: metOLazone 5 MG TABLET PO SCH (08:48)
[2023-03-02] MEDS: APIXABAN 5 MG TABLET PO SCH ×2 (08:48→20:00)
--- NOTE | 2023-03-02 08:48 | Nephrology Progress Note ---
Date of Service March 02, 2023 Assessment & Plan (1) Acute kidney injury superimposed on CKD: Plan: * ESA/CKD related to volume overload * Patient is nonoliguric. I&O matched last 24 hours although patient reports diarrhea and inability to collect urine for volume measurement * Cr has risen from 4.6 to 5.0. Suspect intravascular volume contraction. Patient still has significant pedal edema * Stop Metolazone * Continue Bumex 3 mg IV BID * Encouraged patient to collect all urine for measurement * Monitor UO, PRP. If kidney function continues to decline, may need to move to [facility] for volume management (2) CKD (chronic kidney disease), symptom management only: Plan: * CKD stage G5/A2 (End Stage Kidney Disease). Baseline Cr 4.5 w/ EGFR 15 cc/min. 05/[address] at [facility] was negative for obstruction but did reveal nonobstructing kidney stones. Renal impairment is on the basis of vascular disease (3) Anemia: Plan: * Mild anemia * Epogen 10,000 units SQ administered 03/01/23 * Venofer 200 mg daily x 5 doses completed 02/26 (4) Bilateral pleural effusion: Plan: * s/p thoracentesis 02/22/23 with 1.7 L of transudative fluid removed. (5) Atrial fibrillation: Plan: * On Apixaban (6) History of hepatitis C: Plan: * Remains Hepatitis C + by PCR * Discussed w/ primary service. Recommend consultation w/ GI and or ID to determine whether patient would benefit from antiviral therapy Admission and Anticipated Discharge Date Admission Date: February 20, 2023 Subjective Mr. Trejo was evaluated in his hospital room this morning. He reports diarrhea and inability to collect urine for volume measurement. He c/o persistent bilateral foot swelling Review of Systems Constitutional: no fever Eyes: no problem reported Ear, Nose, Mouth, Throat: no problem reported Respiratory: no cough and no dyspnea Cardiovascular: + edema; no chest pain Gastrointestinal: no abdominal pain, no nausea, no vomiting and no diarrhea/loose stools Genitourinary: no dysuria or no hematuria Physical Exam Constitutional: not in distress Eyes: PERRL, conjunctivae normal, anicteric sclerae ENMT: external ear and nose normal, oropharynx normal Neck: trachea midline, no thyromegaly Respiratory: normal respiratory effort, lungs clear to auscultation Cardiovascular: Rate/Rhythm: regular rate and regular rhythm Extremities: + edema (trace pretibial edema, 3+ pitting pedal edema) Gastrointestinal (Abdomen): Inspection/Auscultation: normal bowel sounds Percussion/Palpation: abdomen soft; abdomen nontender and no guarding Neurologic: Speech / Cognition: normal speech and normal cognition Psychiatric: Affect: euthymic affect Results & Data Vital Signs (Past 12 Hours) Vital Signs Temp Pulse Pulse Resp BP Pulse Ox O2 Del Method 03/02/23 08:38 Room Air 03/02/23 07:51 80 03/02/23 07:45 80 18 98 Nasal Cannula 03/02/23 07:26 36.3 C L 78 18 118/73 98 Nasal Cannula 03/02/23 03:56 20 96 Nasal Cannula 03/02/23 03:33 36.6 C 69 20 150/94 H 93 Nasal Cannula 03/01/23 22:33 107 H 03/01/23 22:53 36.7 C 88 18 151/114 H 94 Room Air O2 Flow Rate 03/02/23 08:38 03/02/23 07:51 03/02/23 07:45 2 03/02/23 07:26 2 03/02/23 03:56 2 03/02/23 03:33 2 03/01/23 22:33 03/01/23 22:53 Laboratory Results Laboratory Tests 03/02/23 03/02/23 05:38 05:38 WBC 6.91 Hgb 9.5 L Hct 29.6 L Plt Count 89 L Sodium 137 Potassium 4.4 Chloride 104 Carbon Dioxide 24 BUN 79 H Creatinine 5.07 H* D Glucose 85 PG Care Time/CCT Total # of Minutes Spent Total Time Spent with Patient: Total time spent is greater than 50% in coordination of care (as documented) at patient's floor/unit and/or counseling patient: Coding Level of Care Code 61681 SUB INP/OBS CARE 3/50MIN Diagnoses Acute kidney injury superimposed on CKD N17.9; N18.9 CKD (chronic kidney disease), symptom management only N18.9 Anemia D64.9 Bilateral pleural effusion J90 Atrial fibrillation I48.91 Atrial fibrillation type: unspecified History of hepatitis C Z86.19 (5) Atrial fibrillation Atrial fibrillation type: unspecified Qualified Code(s): I48.91 - Unspecified atrial fibrillation
[2023-03-02] MEDS: METOPROLOL SUCC 50MG EXT REL TAB PO SCH (08:49)
[2023-03-02] MEDS: BETAMETHASONE VAL 0.1% CR 15 GM EXT SCH (08:50)
[2023-03-02] MEDS: BUMETANIDE 3 MG in SYRINGE 0 ML IV SCH ×2 (09:30→16:11)
[2023-03-02] MEDS: CYANOCOBALAMIN (B-12) 500 MCG TABLET PO SCH (09:48)
--- NOTE | 2023-03-02 22:51 | Hospitalist Progress Note ---
Date of Service March 02, 2023 Assessment & Plan (1) Volume overload: Plan: improving 2nd to ESA on advanced CKD he also has cirrhosis and this is also contributing to volume status cont IV bumex 3mg BID cont metolazone 5mg qam prior to AM bumex cont daily weights cont fluid restriction continue to monitor his output. Appears to be improving, as he states initially his calves looked like 2 logs filled with fluid. 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) continues with good response to bumex continue metolazone daily with diuresis his creatinine is slowly improving -- Cr today 5.07 K level wnl acid-base status acceptable fortunately we can cont to delay initiation of dialysis daily BMP appreciate nephrology assistance (3) Thrombocytopenia: Plan: moderate with platelet count 60s for several days modest improvement today once again (up to 80) no bleeding from any location cont cautious use of Eliquis suspect chronically low platelets likely from cirrhosis acute drop uncertain but fortunately the count is stable checked TSH - wnl B12 and folate levels both low-normal --> supplementing both repeat CBC am for stability (4) Pleural effusion on right: Plan: s/p thoracentesis with 1500+ out fluid studies c/w transudative fluid from renal and/or liver disease culture neg cytologies negative he continues to have decreased BS R base on exam - thus, obtain 2-view cxr to ensure no reaccumulation of effusion patient also had collapse of RML and RLL on CT chest earlier this stay; it is possible those lobes have simply not re-expanded (CT chest - 02/20/23 -- "Partial collapse of the right middle and lower lobes. No obstructing endobronchial lesion identified on this exam.") will recheck chest x ray in AM, depending on result, will consider a pulmonary consult. (5) Atrial fibrillation: Plan: cont metoprolol succinate but increase to 100mg daily for better rate control cont Eliquis for stroke prevention (6) Hyperlipidemia: (7) Psoriasis: Plan: cont topical steroid therapy he really should follow with dermatology given the severity of his psoriasis (8) CKD (chronic kidney disease) stage 4, GFR 15-29 ml/min: Plan: baseline CrCl 20s BMP am see #2 above ESA improving (9) Cirrhosis: Plan: patient with prior h/o HepC s/p treatment in the past (interferon therapy?) hepC ab remains positive - hepC RNA returned very high c/w active disease CT a/p this admission with findings c/w cirrhosis post discharge he will need ID or GI f/u for consideration of Rx of active HepC disease [facility] nurse navigator investigating who we can refer to (10) COPD (chronic obstructive pulmonary disease): Plan: cont combivent 1 puff QID stable (11) Hypertension: Plan: controlled amlodipine, losartan, and HCTZ all stopped; would not continue any of these at discharge remains on metoprolol xl - titrated again today for a.fib (12) History of hepatitis C: Plan: see above in #9 (13) Diarrhea: Plan: several months in duration ordered stool BioFire + stool for c diff -- both fully negative etiology? add colestipol 1gm qam if diarrhea persists he should see GI for consideration of colonoscopy (r/o microscopic colitis, other etiologies) (14) DVT prophylaxis: Plan: Eliquis (15) Right arm pain: Plan: 2nd to malpositioned u/s-guided IV this IV has been pulled doppler w/o DVT there is a small thrombus in the cephalic vein which appears chronic per radiology Eliquis has been resumed Plan cont PT/OT making excellent progress Admission and Anticipated Discharge Date Admission Date: February 20, 2023 Subjective Patient reports no new symptoms. Review of Systems Review of Systems: All systems reviewed & are unremarkable except as noted in HPI & below Physical Exam Physical Exam: gen - obese, NAD , sitting in chair - looks good mouth - MMM heart - irregular, s1 s2, no murmur; rate likely <100 lungs - no wheezes; decreased BS right base; scant rales left base abd - soft NT BS+; distension improving; large scar midline lower abdomen; firm area (subcu edema) just superior to the scar; no hernia ext - decreased 2+ pitting edema b/l legs - no change, pulses 2+ b/l psych - a/o x 3 skin - extensive psoriatic plaques on torso, arms, legs, back, etc - unchanged Results & Data Results & Data Vital Signs (Past 12 Hours) Vital Signs Temp Pulse Pulse Resp BP Pulse Ox O2 Del Method 03/02/23 19:42 36.8 C 90 18 137/83 94 Room Air 03/02/23 19:15 Room Air 03/02/23 19:12 82 18 94 Room Air 03/02/23 16:12 36.6 C 83 20 155/109 H 96 Room Air 03/02/23 15:29 99 H 03/02/23 14:58 95 03/02/23 11:35 36.5 C 80 18 166/106 H Room Air PG Care Time/CCT Total # of Minutes Spent Total Time Spent with Patient: Total time spent is greater than 50% in coordination of care (as documented) at patient's floor/unit and/or counseling patient: Coding Level of Care Code 55875 SUB INP/OBS CARE 2/35MIN Diagnoses Volume overload E87.70 Acute kidney injury superimposed on CKD N17.9; N18.9 Thrombocytopenia D69.6 Pleural effusion on right J90 Atrial fibrillation I48.91 Atrial fibrillation type: unspecified Hyperlipidemia E78.5 Psoriasis L40.9 CKD (chronic kidney disease) stage 4, GFR 15-29 ml/min N18.4 Cirrhosis K74.60 COPD (chronic obstructive pulmonary disease) J44.9 Hypertension I10 History of hepatitis C Z86.19 Diarrhea R19.7 DVT prophylaxis Z29.9 Right arm pain M79.601 (5) Atrial fibrillation Atrial fibrillation type: unspecified Qualified Code(s): I48.91 - Unspecified atrial fibrillation
[2023-03-03] MEDS: COLESTIPOL HCL 1 GM TAB PO SCH (06:26)
[2023-03-03 06:45] LABS: BUN Creatinine Ratio 17.2 (10-20); Calcium 8.2 mg/dl (8.6-10.3); Creatinine Clr Calc Pharmacy 20.1 ml/min; Est GFR (African American) 13.6 ml/min; Est GFR (Non-African American) 11.7 ml/min
[2023-03-03] MEDS: IPRATROPIUM BROMIDE HFA INHALER INH SCH ×2 (07:04→19:34)
[2023-03-03] MEDS: ALBUTEROL HFA 8 GM INHALER INH SCH ×2 (07:04→19:34)
[2023-03-03] MEDS: FOLIC ACID 1 MG TAB PO SCH (08:25)
[2023-03-03] MEDS: CYANOCOBALAMIN (B-12) 500 MCG TABLET PO SCH (08:25)
[2023-03-03] MEDS: METOPROLOL SUCC 50MG EXT REL TAB PO SCH (08:25)
[2023-03-03] MEDS: APIXABAN 5 MG TABLET PO SCH ×2 (08:26→20:10)
[2023-03-03] MEDS: BETAMETHASONE VAL 0.1% CR 15 GM EXT SCH (08:27)
[2023-03-03] MEDS: BUMETANIDE 3 MG in SYRINGE 0 ML IV SCH (08:50)
--- NOTE | 2023-03-03 09:04 | Nephrology Progress Note ---
Date of Service March 03, 2023 Assessment & Plan (1) Acute kidney injury superimposed on CKD: Plan: * Although patient is nonoliguric, Cr remains ~ 4.8-5.0 and patient has significant pedal edema. EGFR is only 12 cc/min. I am concerned that at home Mr. Trejo will have significant Na intake with recurrent CHF due to his advanced renal impairment. He also has significant azotemia * Indications/risks/alternatives to HD discussed w/ Mr. Trejo this morning. Types of vascular access reviewed in detail. Mr. Trejo is agreeable to starting HD for volume management and correction of azotemia * Will consult Dr. Guillory for IJ TCC * 1st run HD in am * Will consult case management to set up outpatient HD at [facility] * Change Bumex to 2 mg po daily * PRP in am (2) CKD (chronic kidney disease), symptom management only: Plan: * CKD stage G5/A2 (End Stage Kidney Disease). Baseline Cr had been 4.5. 05/[address] at [facility] was negative for obstruction but did reveal nonobstructing kidney stones. Renal impairment is on the basis of vascular disease (3) Anemia: Plan: * Mild anemia * Epogen 10,000 units SQ administered 03/01/23 * Venofer 200 mg daily x 5 doses completed 02/26 (4) Bilateral pleural effusion: Plan: * s/p thoracentesis 02/22/23 with 1.7 L of transudative fluid removed. (5) Atrial fibrillation: Plan: * On Apixaban (6) History of hepatitis C: Plan: * Remains Hepatitis C + by PCR * Discussed w/ primary service. Recommend consultation w/ GI and or ID to determine whether patient would benefit from antiviral therapy Admission and Anticipated Discharge Date Admission Date: February 20, 2023 Subjective Mr. Trejo was evaluated in his hospital room this morning. He is anxious to return home but notes that his feet remains swollen and he cannot wear shoes Review of Systems Constitutional: no fever Eyes: no problem reported Ear, Nose, Mouth, Throat: no problem reported Respiratory: no cough and no dyspnea Cardiovascular: + edema; no chest pain Gastrointestinal: no abdominal pain, no nausea, no vomiting and no diarrhea/loose stools Genitourinary: no dysuria or no hematuria Physical Exam Constitutional: not in distress Eyes: PERRL, conjunctivae normal, anicteric sclerae ENMT: external ear and nose normal, oropharynx normal Neck: trachea midline, no thyromegaly Respiratory: normal respiratory effort, lungs clear to auscultation Cardiovascular: Rate/Rhythm: regular rate and regular rhythm Extremities: + edema (trace pretibial edema, 3+ pitting pedal edema) Gastrointestinal (Abdomen): Inspection/Auscultation: normal bowel sounds Percussion/Palpation: abdomen soft; abdomen nontender and no guarding Neurologic: Speech / Cognition: normal speech and normal cognition Psychiatric: Affect: euthymic affect Results & Data Vital Signs (Past 12 Hours) Vital Signs Temp Pulse Pulse Resp BP Pulse Ox O2 Del Method 03/03/23 07:49 36.4 C L 90 20 158/104 H 96 Room Air 03/03/23 07:05 80 18 92 Room Air 03/03/23 05:21 36.6 C 91 H 20 161/108 H 94 Room Air 03/02/23 22:53 36.4 C L 89 18 146/101 H 95 Room Air 03/02/23 22:00 89 Laboratory Results Laboratory Tests 03/02/23 03/03/23 05:38 05:54 WBC 6.91 Hgb 9.5 L Hct 29.6 L Plt Count 89 L Sodium 137 Potassium 4.0 Chloride 103 Carbon Dioxide 25 BUN 83 H Creatinine 4.83 H* Glucose 86 Calcium 8.2 L PG Care Time/CCT Total # of Minutes Spent Total Time Spent with Patient: Total time spent is greater than 50% in coordination of care (as documented) at patient's floor/unit and/or counseling patient: Coding Level of Care Code 86118 SUB INP/OBS CARE 3/50MIN Diagnoses Acute kidney injury superimposed on CKD N17.9; N18.9 CKD (chronic kidney disease), symptom management only N18.9 Anemia D64.9 Bilateral pleural effusion J90 Atrial fibrillation I48.91 Atrial fibrillation type: unspecified History of hepatitis C Z86.19 (5) Atrial fibrillation Atrial fibrillation type: unspecified Qualified Code(s): I48.91 - Unspecified atrial fibrillation
--- NOTE | 2023-03-03 11:18 | Consultation ---
Date of Consultation March 03, 2023 Assessment & Plan (1) End stage renal disease: Pt with longstanding renal dysfunction, now with worsening renal fxn and remains fluid overloaded despite diuresis. Pt discussed with Dr Guillory, planning on permcath insertion later today for HD initiation. Procedure, risks, benefits, and alternatives discussed with pt by myself at Dr Guillory's request. Pt expresses understanding and agreement to proceed. 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 Pt known to Dr Guillory for his AAA and L iliac artery aneruysm and is s/p endovascular repair of this in November 2022. He presented to outpt office for routine post op US almost 2 weeks ago and was noted to have severe generalized edema and labored breathing and was sent to ED for eval. He was followed by Dr Dyson preoperatively and was expected to need HD after his endovascular AAA repair, but had not yet made an appt to see nephrology since his procedure. Pt states the edema in his BLE is significantly improved, as is his overall breathing. Per chart, pt has undergone diuresis, but is still in fluid overload and will require HD. Admits some edema in BLE still present. Pt denies HERNANDEZ, fever, chest pain, SOB, abd pain, N/V, rest pain, claudication, other complaints. Allergies Allergy/AdvReac Type Severity Reaction Status Date / Time No Known Drug Allergies Allergy Unknown Verified 11/30/22 07:36 Home Medications Medication Instructions Recorded Confirmed Type amlodipine 10 mg tablet 10 mg PO QAM 06/02/22 02/20/23 History apixaban 5 mg tablet (Eliquis) 5 mg PO DAILY 06/02/22 02/20/23 History furosemide 40 mg tablet 40 mg PO QAM 06/02/22 02/20/23 History losartan 100 1 tab PO QAM 06/02/22 02/20/23 History mg-hydrochlorothiazide 25 mg tablet metoprolol succinate 50 mg 50 mg PO QAM 06/02/22 02/20/23 History tablet,extended release 24 hr Patient History Medical History AAA (abdominal aortic aneurysm) 3.4cm per abdomen/pelvis CTA 09/29/22 Acute kidney injury superimposed on CKD Aneurysm artery, iliac L>R (measuring up to 5.1cm) per abdomen/pelvis CTA 09/29/22 Atrial fibrillation [facility], taking Eliquis Bilateral pleural effusion Chronic active hepatitis C Chronic kidney disease, stage V Cirrhosis COPD (chronic obstructive pulmonary disease) per records, pt denies H/O reduction of closed fracture right arm Hypertension Kidney stones Obesity Psoriasis PVD (peripheral vascular disease) Surgical History H/O umbilical hernia repair History of colonoscopy History of lithotripsy S/P debridement left elbow for cellulitis Family History Other No family history of adverse response to anesthesia Social History Smoking Status: Former smoker Tobacco Type: Cigarettes Cigarettes Per Day: 20; Smoking End Date: 11/01/2022; Second Hand Exposure: No; Do You Dip or Chew Tobacco: No; Hx Alcohol Use: No Hx Substance Use: Yes Last Used Substance Other:: 11/01/2022 Preferred Language: Irish Communication Ability: Effective Captain Of Guards Required: No Beliefs That Will Affect Care: None Current Living Situation: Spouse Feels Safe at Home: Yes Assistive Devices: None Review of Systems Review of Systems: All systems reviewed & are unremarkable except as noted in HPI & below Physical Exam Constitutional: WD/WN, vitals as above healthy appearing, cooperative and comfortable; not in distress ENMT: Ears: no hearing impairment Neck: trachea midline Respiratory: normal respiratory effort Auscultation: + diminished lung sounds and + crackles Cardiovascular: Rate/Rhythm: + irregularly irregular Vessels: posterior tibial pulses present, dorsalis pedis pulses present and radial pulses present; + abnormal peripheral pulses Extremities: normal capillary refill and + edema (+2) Gastrointestinal (Abdomen): Inspection/Auscultation: abdomen normal to inspection and normal bowel sounds Percussion/Palpation: abdomen soft; abdomen nontender Musculoskeletal: no cyanosis or clubbing, extremities motor strength 5/5 Skin: no rashes, warm and dry Neurologic: moves all extremities and awake; no focal motor deficits and not confused Psychiatric: A+Ox3, euthymic affect Results & Data Vital Signs (Past 12 Hours) Vital Signs Temp Pulse Resp BP Pulse Ox O2 Del Method 03/03/23 09:26 Room Air 03/03/23 07:49 36.4 C L 90 20 158/104 H 96 Room Air 03/03/23 07:05 80 18 92 Room Air 03/03/23 05:21 36.6 C 91 H 20 161/108 H 94 Room Air
--- NOTE | 2023-03-03 11:48 | XRay Report ---
XR chest 2V PA/lateral HISTORY: Right middle lobe collapse. Follow-up. COMPARISON: Chest 03/01/2023. FINDINGS: No pneumothorax. The heart remains enlarged. There are low lung volumes. Interval progressi on of the small to moderate right pleural effusion and right basilar airspace opacities. The left neva g is clear. IMPRESSION: Interval progression of the small to moderate right pleural effusion and right basilar densities. ACT 112: Negative or not required by law. Electronically signed by: Rigoberto Eddy M.D. 03/03/2023 11:46 AM
[2023-03-03] MEDS ORDERED: fentaNYL citrate PF 100 MCG/2 ML VIAL ONE (12:57)
[2023-03-03] MEDS ORDERED: HEPARIN SOD (PORCINE) 5,000 UNITS/ML VIAL ONE (12:58)
[2023-03-03] MEDS ORDERED: LIDOCAINE 1% LOCAL 20 ML VIAL ONE (12:58)
[2023-03-03] MEDS ORDERED: ARISTA ABSORBABLE HEMOSTAT 3GM TOP ONE (13:09)
--- NOTE | 2023-03-03 13:21 | Operative Report ---
Post Operative Report Pre & Post Diagnosis Operation Date: 03/03/23 11:50 Pre-Op Diagnosis: Acute Kidney Injury Post-Op Diagnosis: Acute Kidney Injury I identified the patient and participated in the time-out.: Yes Procedure Operation Date: 03/03/23 11:50 Actual Procedures p Insertion or Perm Catheter Right Jugular Approach, Ultrasound Localization of Right Jugular Vein, Fluoroscopy for Positioning(Right) - Lorenzo Guillory MD Surgeon Lorenzo Guillory MD Automatic Dispenser Mechanic none Estimated Blood Loss 5 Findings Consistent with Post-Op Diagnosis Specimens none Anesthesia Type Local Complications none Disposition Accompanied Patient To Recovery: No Disposition: Recovery Room Indications This is a 63-year-old male who has chronic renal failure now has acute kidney injury superimposed in need of dialysis due to fluid overload. Insertion of a PermCath recommended for dialysis access. I have discussed the risks options and benefits of the procedure with the patient. The patient understands the risks options and benefits and agrees to the procedure. Description of Procedure Patient was taken to the angio suite and placed in the supine position. The right side of the neck and chest wall were prepped and draped in a sterile manner. The patient was identified and a timeout performed. Local anesthesia was then administered to the appropriate areas of the neck and chest wall. Ultrasound was then used to locate the right internal jugular vein. The vein compressed easily, had no filing defects, and was patent. The vein was then punctured under direct ultrasound imaging. A guidewire was then passed centrally under fluoroscopic imaging. A stab wound was then made in the anterior chest wall and a 19 cm permcath was passed from the stab wound on the chest wall to the puncture site on the neck. The puncture site was then dilated till the 14Fr peel away sheath was inserted. The permcath was then inserted through the sheath to a central position in the distal superior vena cava. The peel away sheath was then removed. Javier was placed in the tunnel prior to suturing the catheter in place to decrease the chance of bleeding due to the patient being on Eliquis. The catheter was then sutured in place using nylon sutures. The puncture was then closed using a 4-0 Vicryl subcuticular suture. Dermabond was used for a dressing on the puncture site. Both ports aspirated and flushed easily and were then packed with heparin. A sterile dressing was applied to the catheter. The patient left the operation room in satisfactory condition and tolerated the procedure well. All needle and sponge counts were correct at the end of the procedure. I attest to the content of the Intraoperative Record and any orders documented therein. Any exceptions are noted below.
--- NOTE | 2023-03-03 18:24 | Hospitalist Progress Note ---
Date of Service March 03, 2023 Assessment & Plan (1) Volume overload: Plan: improving but still remains quite hypervolemic 2nd to ESA on advanced CKD he also has cirrhosis and this is also contributing to volume status received IV bumex 3mg BID and now converting to Bumex 2mg po qAM as per Nephro now starting HD in AM perm cath placed cont daily weights cont fluid restriction continue to monitor his output. 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) continues with good response to bumex dcd metolazone losartan HCTZ stopped Yeast Culture Developer today 4.8 starting HD in AM perm cath placed-monnitor for bleeding/bruising given on Eiquis Appreciate Nephrology management follow BMP in AM (3) Thrombocytopenia: Plan: moderate with platelet count 60s for several days modest improvement up to 80 no bleeding from any location cont cautious use of Eliquis suspect chronically low platelets likely from cirrhosis acute drop uncertain but fortunately the count is stable checked TSH - wnl B12 and folate levels both low-normal --> supplementing both repeat CBC am for stability (4) Pleural effusion on right: Plan: s/p thoracentesis with 1500+ out fluid studies c/w transudative fluid from renal and/or liver disease culture neg cytologies negative he continues to have decreased BS R base on exam patient also had collapse of RML and RLL on CT chest earlier this stay; it is possible those lobes have simply not re-expanded (CT chest - 02/20/23 -- "Partial collapse of the right middle and lower lobes. No obstructing endobronchial lesion identified on this exam.") -CXR 03/03 again with pleural effusion on right with volume loss on right-PULM signed off not hypoxic, no SOB plan to start HD and will follow volume status and encourage ICS to reexpand lung on right (5) Atrial fibrillation: Plan: cont metoprolol succinate but increased to 100mg daily for better rate control cont Eliquis for stroke prevention (6) Psoriasis: Plan: cont topical steroid therapy he really should follow with dermatology given the severity of his psoriasis (7) CKD (chronic kidney disease) stage 4, GFR 15-29 ml/min: Plan: see above (8) Cirrhosis: Plan: patient with prior h/o HepC s/p treatment in the past (interferon therapy?) hepC ab remains positive - hepC RNA returned very high c/w active disease CT a/p this admission with findings c/w cirrhosis post discharge he will need ID or GI f/u for consideration of Rx of active HepC disease [facility] nurse navigator investigating who we can refer to (9) COPD (chronic obstructive pulmonary disease): Plan: cont combivent 1 puff QID stable (10) Hypertension: Plan: controlled amlodipine, losartan, and HCTZ all stopped; would not continue any of these at discharge remains on metoprolol xl - titrated for a.fib (11) History of hepatitis C: Plan: see above (12) Diarrhea: Plan: several months in duration ordered stool BioFire + stool for c diff -- both fully negative etiology? added colestipol 1gm qam-improving if diarrhea persists he should see GI for consideration of colonoscopy (r/o microscopic colitis, other etiologies) (13) DVT prophylaxis: Plan: Eliquis (14) Right arm pain: Plan: 2nd to malpositioned u/s-guided IV this IV has been pulled doppler w/o DVT there is a small thrombus in the cephalic vein which appears chronic per radiology Eliquis has been resumed Plan cont PT/OT Dispo-continued stay for new start on HD, need CM to arrange outpt HD Likely discharge Wed-Wednesday Admission and Anticipated Discharge Date Admission Date: February 20, 2023 Subjective Had perm cath placed today, is worried about the bruising at the site. No SOB at rest. Moving bowels, making urine, eating. Is resolved to the fact he will be starting HD tomorrow Tele with Afib, rates 70-80s Physical Exam Constitutional: WD/WN, vitals as above + obese Respiratory: normal respiratory effort; no cough and not tachypneic Auscultation: + diminished lung sounds (bibasilar); no crackles and no wheezes Cardiovascular: Rate/Rhythm: regular rate and + irregularly irregular Heart Sounds: no murmur Extremities: + edema (3+ pitting edema to thighs bilat) Gastrointestinal (Abdomen): normal bowel sounds, soft, nontender, no hepatosplenomegaly Skin: + rash (chronic venous stasis dermatitis on legs) Psychiatric: Orientation: alert, oriented x 3 and cooperative Results & Data Results & Data Vital Signs (Past 12 Hours) Vital Signs Temp Pulse Pulse Pulse Resp BP BP 03/03/23 18:01 84 139/86 03/03/23 16:00 76 146/92 H 03/03/23 17:14 80 18 138/87 03/03/23 16:31 79 141/92 H 03/03/23 14:59 36.6 C 84 20 142/95 H 03/03/23 15:00 81 18 155/112 H 03/03/23 14:30 83 18 170/120 H 03/03/23 14:15 80 18 145/106 H 03/03/23 13:55 36.6 C 90 18 156/108 H 03/03/23 13:39 36.5 C 84 18 145/95 H 03/03/23 13:15 84 18 151/103 H 03/03/23 13:05 88 18 160/98 H 03/03/23 13:10 84 18 165/111 H 03/03/23 13:00 86 18 171/100 H 03/03/23 12:27 37 C 91 H 20 149/103 H 03/03/23 11:00 36.4 C L 81 18 151/103 H 03/03/23 09:26 03/03/23 07:49 36.4 C L 90 20 158/104 H 03/03/23 07:05 80 18 Pulse Ox O2 Del Method O2 Flow Rate 03/03/23 18:01 03/03/23 16:00 03/03/23 17:14 96 Room Air 03/03/23 16:31 03/03/23 14:59 95 Room Air 03/03/23 15:00 94 Room Air 03/03/23 14:30 03/03/23 14:15 95 Room Air 03/03/23 13:55 96 Room Air 03/03/23 13:39 96 Room Air 03/03/23 13:15 100 Oxymask 4 03/03/23 13:05 100 Oxymask 4 03/03/23 13:10 100 Oxymask 4 03/03/23 13:00 100 Oxymask 4 03/03/23 12:27 97 Room Air 03/03/23 11:00 96 Room Air 03/03/23 09:26 Room Air 03/03/23 07:49 96 Room Air 03/03/23 07:05 92 Room Air Laboratory Results BMP reviewed CXR reviewed PG Care Time/CCT Total # of Minutes Spent Total Time Spent with Patient: Total time spent is greater than 50% in coordination of care (as documented) at patient's floor/unit and/or counseling patient: Coding Level of Care Code 07442 SUB INP/OBS CARE 3/50MIN Diagnoses Volume overload E87.70 Acute kidney injury superimposed on CKD N17.9; N18.9 Thrombocytopenia D69.6 Pleural effusion on right J90 Atrial fibrillation I48.91 Atrial fibrillation type: unspecified Psoriasis L40.9 CKD (chronic kidney disease) stage 4, GFR 15-29 ml/min N18.4 Cirrhosis K74.60 COPD (chronic obstructive pulmonary disease) J44.9 Hypertension I10 History of hepatitis C Z86.19 Diarrhea R19.7 DVT prophylaxis Z29.9 Right arm pain M79.601 (5) Atrial fibrillation Atrial fibrillation type: unspecified Qualified Code(s): I48.91 - Unspecified atrial fibrillation
[2023-03-03] MEDS: ACETAMINOPHEN 325 MG TAB PO PRN (20:10)
[2023-03-03] MEDS: MELATONIN 3 MG TAB PO PRN (23:04)
[2023-03-04 06:31] LABS: Basophils # (auto) 0.02 K/uL (0-0.2); Basophils % (auto) 0.3 %; Eosinophils # (auto) 0.25 K/uL (0-0.50); Eosinophils % (auto) 3.7 %; Hemoglobin 9.3 g/dl (14.0-18.0); Immature Granulocytes # (auto) 0.02 K/uL (0.01-0.20); Immature Granulocytes % (auto) 0.3 %; Lymphocytes # (auto) 1.71 K/uL (1.2-3.4); Lymphocytes % (auto) 25.4 %; Mean Corpuscular Hemoglobin 28.3 pg (25.0-34.0); Mean Corpuscular Hgb Conc 32.1 g/dL (32.0-36.0); Mean Corpuscular Volume 88.1 fL (80.0-100.0); Mean Platelet Volume 12.1 fL (9.4-12.4); Monocytes # (auto) 0.54 K/uL (0.11-0.59); Neutrophils % (auto) 62.3 %; Platelet Count 99 K/uL (130-400); RDW Standard Deviation 48.4 fL (36.4-46.3); Red Blood Count 3.29 M/uL (4.70-6.10); White Blood Count 6.74 K/ul (4.8-10.8)
[2023-03-04 06:52] LABS: Albumin Globulin Ratio 0.9 (0.9-2); Albumin Level 3.3 gm/dl (3.4-5.0); BUN Creatinine Ratio 16.7 (10-20); Bilirubin,Total 0.5 mg/dl (0.2-1.0); Calcium 8.4 mg/dl (8.6-10.3); Creatinine Clr Calc Pharmacy 19.7 ml/min; Est GFR (African American) 13.3 ml/min; Est GFR (Non-African American) 11.5 ml/min; Globulin 3.7 gm/dl (2.5-4.0); Magnesium 1.6 mg/dl (1.7-2.4); Phosphorus 5.4 mg/dl (2.5-4.9); Potassium 4.3 mmol/L (3.5-5.1)
[2023-03-04] MEDS ORDERED: EPOETIN ALFA 10,000 UNITS/ML VIAL IV ONE (07:00)
[2023-03-04] MEDS ORDERED: SODIUM CHLORIDE 0.9% 1000ML 1,000 ML IV PRN (07:00)
[2023-03-04] MEDS: ALBUTEROL HFA 8 GM INHALER INH SCH ×2 (07:34→19:20)
[2023-03-04] MEDS: IPRATROPIUM BROMIDE HFA INHALER INH SCH ×2 (07:34→19:20)
[2023-03-04] MEDS: BETAMETHASONE VAL 0.1% CR 15 GM EXT SCH (07:56)
[2023-03-04] MEDS: COLESTIPOL HCL 1 GM TAB PO SCH (07:58)
[2023-03-04] MEDS: METOPROLOL SUCC 50MG EXT REL TAB PO SCH (11:09)
[2023-03-04] MEDS: FOLIC ACID 1 MG TAB PO SCH (11:09)
[2023-03-04] MEDS: BUMETANIDE 1 MG TAB PO SCH (11:09)
[2023-03-04] MEDS: CYANOCOBALAMIN (B-12) 500 MCG TABLET PO SCH (11:09)
[2023-03-04] MEDS: APIXABAN 5 MG TABLET PO SCH ×2 (11:09→21:24)
[2023-03-04] MEDS ORDERED: MAGNESIUM SULFATE / D5W 1 GM/100 ML BAG IV ONE (11:12)
--- NOTE | 2023-03-04 11:14 | Nephrology Progress Note ---
Date of Service March 04, 2023 Assessment & Plan (1) End stage renal disease: Plan: * HD started for volume management and urea clearance. Baseline Cr has risen to 5.0 w/ EGFR 11 cc/min. Patient has tense pedal edema limiting his ability to wear shoes, ambulate. He has developed significant azotemia * 1st run HD today. Will attempt 2 L UF * Plan 2nd HD tomorrow * Outpatient HD set up at [facility] at 11 am starting on Wednesday * Continue Bumex 2 mg po daily * PRP in am (2) Anemia: Plan: * Mild anemia * Will administer EMMA w/ HD * Venofer 200 mg daily x 5 doses completed 02/26 (3) Bilateral pleural effusion: Plan: * s/p thoracentesis 02/22/23 with 1.7 L of transudative fluid removed. (4) Atrial fibrillation: Plan: * On Apixaban (5) History of hepatitis C: Plan: * Remains Hepatitis C + by PCR * Discussed w/ primary service. Recommend consultation w/ GI and or ID to determine whether patient would benefit from antiviral therapy Admission and Anticipated Discharge Date Admission Date: February 20, 2023 Subjective Mr. Trejo was evaluated in his hospital room this morning. R IJ TCC was placed yesterday afternoon without complication. He denies dyspnea. Review of Systems Constitutional: no fever Eyes: no problem reported Ear, Nose, Mouth, Throat: no problem reported Respiratory: no cough and no dyspnea Cardiovascular: + edema; no chest pain Gastrointestinal: no abdominal pain, no nausea, no vomiting and no diarrhea/loose stools Genitourinary: no dysuria or no hematuria Physical Exam Constitutional: not in distress Eyes: PERRL, conjunctivae normal, anicteric sclerae ENMT: external ear and nose normal, oropharynx normal Neck: trachea midline, no thyromegaly Respiratory: normal respiratory effort, lungs clear to auscultation Cardiovascular: Rate/Rhythm: regular rate and regular rhythm Extremities: + edema (trace pretibial edema, 3+ pitting pedal edema) Gastrointestinal (Abdomen): Inspection/Auscultation: normal bowel sounds Percussion/Palpation: abdomen soft; abdomen nontender and no guarding Neurologic: Speech / Cognition: normal speech and normal cognition Psychiatric: Affect: euthymic affect Results & Data Vital Signs (Past 12 Hours) Vital Signs Temp Pulse Pulse Pulse Resp BP BP 05/04/23 10:00 76 100/59 L 03/04/23 09:30 78 102/67 03/04/23 09:14 03/04/23 09:00 87 113/70 03/04/23 08:32 78 125/84 03/04/23 08:23 36.5 C 79 03/04/23 07:35 36.4 C L 77 18 156/110 H 03/04/23 07:34 74 16 03/04/23 03:12 36.6 C 89 18 136/91 Pulse Ox O2 Del Method 03/04/23 10:00 03/04/23 09:30 03/04/23 09:14 Room Air 03/04/23 09:00 03/04/23 08:32 03/04/23 08:23 03/04/23 07:35 97 Room Air 03/04/23 07:34 97 Room Air 03/04/23 03:12 95 Room Air Laboratory Results Laboratory Tests 03/04/23 03/04/23 06:12 06:13 WBC 6.74 Hgb 9.3 L Hct 29.0 L Plt Count 99 L Sodium 137 Potassium 4.3 Chloride 102 Carbon Dioxide 26 BUN 82 H Creatinine 4.91 H* PG Care Time/CCT Total # of Minutes Spent Total Time Spent with Patient: Total time spent is greater than 50% in coordination of care (as documented) at patient's floor/unit and/or counseling patient: Coding Level of Care Code 53259 SUB INP/OBS CARE 3/50MIN Diagnoses End stage renal disease N18.6 Anemia D64.9 Bilateral pleural effusion J90 Atrial fibrillation I48.91 Atrial fibrillation type: unspecified History of hepatitis C Z86.19 (4) Atrial fibrillation Atrial fibrillation type: unspecified Qualified Code(s): I48.91 - Unspecified atrial fibrillation
--- NOTE | 2023-03-04 20:20 | Hospitalist Progress Note ---
Date of Service March 04, 2023 Assessment & Plan (1) Volume overload: Plan: improving but still remains quite hypervolemic 2nd to ESA on advanced CKD he also has cirrhosis and this is also contributing to volume status received IV bumex 3mg BID and then converted to Bumex 2mg po qAM as per Nephro now started HD on 03/04 with 2L removed-tolerated well perm cath placed cont daily weights cont fluid restriction continue to monitor his output. 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) continues with good response to bumex dcd metolazone losartan HCTZ stopped Stripping [employer] consistently around 5, uremic perm cath placed 03/03 started HD 03/04-2L removed, tolerated well. plan for more HD tomorrow Appreciate Nephrology management follow BMP in AM (3) Thrombocytopenia: Plan: moderate with platelet count 60s for several days now iprove dup to 90s no bleeding from any location cont cautious use of Eliquis suspect chronically low platelets likely from cirrhosis acute drop uncertain but fortunately the count is improving checked TSH - wnl B12 and folate levels both low-normal --> supplementing both repeat CBC am for stability (4) Pleural effusion on right: Plan: s/p thoracentesis with 1500+ out fluid studies c/w transudative fluid from renal and/or liver disease culture neg cytologies negative he continues to have decreased BS R base on exam patient also had collapse of RML and RLL on CT chest earlier this stay; it is possible those lobes have simply not re-expanded (CT chest - 02/20/23 -- "Partial collapse of the right middle and lower lobes. No obstructing endobronchial lesion identified on this exam.") -CXR 03/03 again with pleural effusion on right with volume loss on right-PULM s igned off not hypoxic, no SOB has now started on HD and will follow volume status and encourage ICS to reexpand lung on right (5) Atrial fibrillation: Plan: cont metoprolol succinate but increased to 100mg daily for better rate control cont Eliquis for stroke prevention (6) Psoriasis: Plan: cont topical steroid therapy he really should follow with dermatology given the severity of his psoriasis (7) CKD (chronic kidney disease) stage 4, GFR 15-29 ml/min: Plan: see above (8) Cirrhosis: Plan: patient with prior h/o HepC s/p treatment in the past (interferon therapy?) hepC ab remains positive - hepC RNA returned very high c/w active disease CT a/p this admission with findings c/w cirrhosis post discharge he will need ID or GI f/u for consideration of Rx of active HepC disease [facility] nurse navigator investigating who we can refer to (9) COPD (chronic obstructive pulmonary disease): Plan: cont combivent 1 puff QID stable (10) Hypertension: Plan: controlled amlodipine, losartan, and HCTZ all stopped; would not continue any of these at discharge remains on metoprolol xl - titrated for a.fib (11) History of hepatitis C: Plan: see above (12) Diarrhea: Plan: several months in duration ordered stool BioFire + stool for c diff -- both fully negative-etiology? added colestipol 1gm qam-improving if diarrhea persists he should see GI for consideration of colonoscopy (r/o microscopic colitis, other etiologies) (13) Right arm pain: Plan: 2nd to malpositioned u/s-guided IV this IV has been pulled doppler w/o DVT there is a small thrombus in the cephalic vein which appears chronic per radiology Eliquis has been resumed Plan DVT proph-Eliquis Dispo-cont PT/OT -continued stay for new start on HD, need CM to arrange outpt HD which is set for Wednesday at 11:00 Likely discharge Sat or Wednesday Admission and Anticipated Discharge Date Admission Date: February 20, 2023 Subjective Had first HD today, had 2L removed. Had some fatigue with this but otherwise doing ok.Denies lightheadedness, feels like he is less SOB nad getting around easier on his own Tele with Afib, rates in the 80s Physical Exam Constitutional: WD/WN, vitals as above + obese Respiratory: normal respiratory effort; no cough and not tachypneic Auscultation: + diminished lung sounds (bibasilar); no crackles and no wheezes Cardiovascular: Rate/Rhythm: regular rate and + irregularly irregular Heart Sounds: no murmur Extremities: + edema (3+ pitting edema to thighs bilat) Gastrointestinal (Abdomen): normal bowel sounds, soft, nontender, no hepatosplenomegaly Skin: + rash (chronic venous stasis dermatitis on legs) Psychiatric: Orientation: alert, oriented x 3 and cooperative Results & Data Results & Data Vital Signs (Past 12 Hours) Vital Signs Temp Pulse Pulse Pulse Pulse Resp BP 03/04/23 19:20 91 H 18 03/04/23 15:25 36.4 C L 84 18 03/04/23 10:37 36.6 C 70 03/04/23 10:30 88 106/63 03/04/23 11:07 36.5 C 85 18 03/04/23 10:00 76 100/59 L 03/04/23 09:30 78 102/67 03/04/23 09:14 03/04/23 09:00 87 113/70 03/04/23 08:32 78 125/84 03/04/23 08:23 36.5 C 79 BP Pulse Ox O2 Del Method O2 Flow Rate 03/04/23 19:20 99 Nasal Cannula 2 03/04/23 15:25 148/95 H 97 Room Air 03/04/23 10:37 116/80 03/04/23 10:30 03/04/23 11:07 129/89 97 Room Air 03/04/23 10:00 03/04/23 09:30 03/04/23 09:14 Room Air 03/04/23 09:00 03/04/23 08:32 03/04/23 08:23 Laboratory Results CBC, BMP, mag, phos reviewed Pleural fluid cx negative PG Care Time/CCT Total # of Minutes Spent Total Time Spent with Patient: Total time spent is greater than 50% in coordination of care (as documented) at patient's floor/unit and/or counseling patient: Coding Level of Care Code 47826 SUB INP/OBS CARE 3/50MIN Diagnoses Volume overload E87.70 Acute kidney injury superimposed on CKD N17.9; N18.9 Thrombocytopenia D69.6 Pleural effusion on right J90 Atrial fibrillation I48.91 Atrial fibrillation type: unspecified Psoriasis L40.9 CKD (chronic kidney disease) stage 4, GFR 15-29 ml/min N18.4 Cirrhosis K74.60 COPD (chronic obstructive pulmonary disease) J44.9 Hypertension I10 History of hepatitis C Z86.19 Diarrhea R19.7 Right arm pain M79.601 (5) Atrial fibrillation Atrial fibrillation type: unspecified Qualified Code(s): I48.91 - Unspecified atrial fibrillation
[2023-03-04] MEDS: MELATONIN 3 MG TAB PO SCH (21:27)
[2023-03-05 06:15] LABS: Basophils # (auto) 0.03 K/uL (0-0.2); Basophils % (auto) 0.4 %; Eosinophils # (auto) 0.23 K/uL (0-0.50); Eosinophils % (auto) 3.4 %; Hematocrit (blood only) 27.5 % (42.0-52.0); Hemoglobin 8.9 g/dl (14.0-18.0); Immature Granulocytes # (auto) 0.01 K/uL (0.01-0.20); Immature Granulocytes % (auto) 0.1 %; Lymphocytes # (auto) 1.55 K/uL (1.2-3.4); Lymphocytes % (auto) 22.7 %; Mean Corpuscular Hemoglobin 29.1 pg (25.0-34.0); Mean Corpuscular Hgb Conc 32.4 g/dL (32.0-36.0); Mean Corpuscular Volume 89.9 fL (80.0-100.0); Mean Platelet Volume 12.3 fL (9.4-12.4); Monocytes # (auto) 0.61 K/uL (0.11-0.59); Monocytes % (auto) 8.9 %; Neutrophils # (auto) 4.41 K/uL (1.40-6.50); Neutrophils % (auto) 64.5 %; Platelet Count 84 K/uL (130-400); RDW Coefficient of Variation 15.3 % (11.5-14.5); RDW Standard Deviation 49.8 fL (36.4-46.3); Red Blood Count 3.06 M/uL (4.70-6.10); White Blood Count 6.84 K/ul (4.8-10.8)
[2023-03-05 06:44] LABS: BUN Creatinine Ratio 14.2 (10-20); Calcium 8.4 mg/dl (8.6-10.3); Creatinine Clr Calc Pharmacy 22.1 ml/min; Est GFR (African American) 15.3 ml/min; Est GFR (Non-African American) 13.2 ml/min
[2023-03-05] MEDS ORDERED: SODIUM CHLORIDE 0.9% 1000ML 1,000 ML IV PRN (07:00)
[2023-03-05] MEDS: IPRATROPIUM BROMIDE HFA INHALER INH SCH ×2 (07:17→19:21)
[2023-03-05] MEDS: ALBUTEROL HFA 8 GM INHALER INH SCH ×2 (07:17→19:21)
[2023-03-05] MEDS: FOLIC ACID 1 MG TAB PO SCH (07:42)
[2023-03-05] MEDS: APIXABAN 5 MG TABLET PO SCH ×2 (07:42→19:59)
[2023-03-05] MEDS: CYANOCOBALAMIN (B-12) 500 MCG TABLET PO SCH (07:43)
[2023-03-05] MEDS: BUMETANIDE 1 MG TAB PO SCH (07:43)
[2023-03-05] MEDS: BETAMETHASONE VAL 0.1% CR 15 GM EXT SCH (07:44)
--- NOTE | 2023-03-05 08:48 | Nephrology Progress Note ---
Date of Service March 05, 2023 Assessment & Plan (1) End stage renal disease: Plan: * HD started for volume management and urea clearance. Baseline Cr has risen to 5.0 w/ EGFR 11 cc/min. Patient has tense pedal edema limiting his ability to wear shoes, ambulate. He has developed significant azotemia * 2nd run HD today. Will attempt 2 L UF * If discharge is anticipated, continue Bumex 2 mg po daily and have patient report to outpatient HD at [facility] at 11 am starting on Wednesday (2) Anemia: Plan: * Mild anemia * Will administer EMMA w/ HD * Venofer 200 mg daily x 5 doses completed 02/26 (3) Bilateral pleural effusion: Plan: * s/p thoracentesis 02/22/23 with 1.7 L of transudative fluid removed. (4) Atrial fibrillation: Plan: * On Apixaban (5) History of hepatitis C: Plan: * Remains Hepatitis C + by PCR * Discussed w/ primary service. Recommend consultation w/ GI and or ID to determine whether patient would benefit from antiviral therapy Admission and Anticipated Discharge Date Admission Date: February 20, 2023 Subjective Mr. Trejo was evaluated in his hospital room this morning. He completed his 1st HD treatment yesterday via [facility]. He tolerated treatment without complication and notes that his LE swelling is improved Review of Systems Constitutional: no fever Eyes: no problem reported Ear, Nose, Mouth, Throat: no problem reported Respiratory: no cough and no dyspnea Cardiovascular: + edema; no chest pain Gastrointestinal: no abdominal pain, no nausea, no vomiting and no diarrhea/loose stools Genitourinary: no dysuria or no hematuria Physical Exam Constitutional: not in distress Eyes: PERRL, conjunctivae normal, anicteric sclerae ENMT: external ear and nose normal, oropharynx normal Neck: trachea midline, no thyromegaly Respiratory: normal respiratory effort, lungs clear to auscultation Cardiovascular: Rate/Rhythm: regular rate and regular rhythm Extremities: + edema (trace pretibial edema, 2+ pitting pedal edema) Gastrointestinal (Abdomen): Inspection/Auscultation: normal bowel sounds Percussion/Palpation: abdomen soft; abdomen nontender and no guarding Neurologic: Speech / Cognition: normal speech and normal cognition Psychiatric: Affect: euthymic affect Results & Data Vital Signs (Past 12 Hours) Vital Signs Temp Pulse Pulse Pulse Resp BP Pulse Ox 03/05/23 08:32 76 03/05/23 07:41 36.6 C 89 18 134/91 96 03/05/23 07:17 68 16 97 03/04/23 22:22 87 03/05/23 04:10 36.4 C L 79 22 143/99 H 03/04/23 22:52 36.8 C 86 20 149/97 H 94 O2 Del Method 03/05/23 08:32 03/05/23 07:41 Room Air 03/05/23 07:17 Room Air 03/04/23 22:22 03/05/23 04:10 Room Air 03/04/23 22:52 Room Air Laboratory Results Laboratory Tests 03/05/23 03/05/23 05:42 05:42 WBC 6.84 Hgb 8.9 L Hct 27.5 L Plt Count 84 L Sodium 136 Potassium 4.0 Chloride 103 Carbon Dioxide 25 BUN 62 H D Creatinine 4.38 H D Calcium 8.4 L PG Care Time/CCT Total # of Minutes Spent Total Time Spent with Patient: Total time spent is greater than 50% in coordination of care (as documented) at patient's floor/unit and/or counseling patient: Coding Level of Care Code 55890 SUB INP/OBS CARE 3/50MIN Diagnoses End stage renal disease N18.6 Anemia D64.9 Bilateral pleural effusion J90 Atrial fibrillation I48.91 Atrial fibrillation type: unspecified History of hepatitis C Z86.19 (4) Atrial fibrillation Atrial fibrillation type: unspecified Qualified Code(s): I48.91 - Unspecified atrial fibrillation
[2023-03-05 11:17] LABS: HBSAG NON-REACTIVE (NON-REACTIVE)
[2023-03-05] MEDS: METOPROLOL SUCC 50MG EXT REL TAB PO SCH (13:24)
[2023-03-05] MEDS: MELATONIN 3 MG TAB PO SCH (20:00)
--- NOTE | 2023-03-05 21:19 | Hospitalist Progress Note ---
Date of Service March 05, 2023 Assessment & Plan (1) Volume overload: Plan: improving with diuresis initially and now on dialysis -still remains quite hypervolemic but has lost 30 lbs thus far 2nd to ESA on advanced CKD he also has cirrhosis and this is also contributing to volume status received IV bumex 3mg BID and then converted to Bumex 2mg po qAM as per Nephro now started HD on 03/04 with 2L removed-tolerated well 2nd HD session 03/05-removed another 2L perm cath placed cont daily weights cont fluid restriction continue to monitor his output. continue Bumex 2mg po qAM on discharge (2) Acute kidney injury superimposed on CKD: Plan: baseline Cr about 4-4.5 with baseline CrCl 20s (c/w stage 4 CKD) with volume overloaded from worsening renal disease and cirrhosis (likely 2nd HepC) diuresed with Bumex and metolazone losartan HCTZ stopped [employer] consistently around 5, uremic perm cath placed 03/03 started HD 03/04 as above, repeat session 03/05 see if needs 3rd session 03/06 and then discharge home Appreciate Nephrology management follow BMP in AM Is all set for outpt HD starting Wednesday at 11:00 at [facility] and kit continue MWF-community case manager confirmed this today (3) Thrombocytopenia: Plan: moderate with platelet count 60s for several days now improved up to 80-90s no bleeding from any location cont cautious use of Eliquis suspect chronically low platelets likely from cirrhosis acute drop uncertain but fortunately the count is improving checked TSH - wnl B12 and folate levels both low-normal --> supplementing both follow CBC periodically (4) Pleural effusion on right: Plan: s/p thoracentesis with 1500+ out fluid studies c/w transudative fluid from renal and/or liver disease culture neg cytologies negative he continues to have decreased BS R base on exam patient also had collapse of RML and RLL on CT chest earlier this stay; it is possible those lobes have simply not re-expanded (CT chest - 02/20/23 -- "Partial collapse of the right middle and lower lobes. No obstructing endobronchial lesion identified on this exam.") -CXR 03/03 again with pleural effusion on right with volume loss on right-PULM signed off not hypoxic, no SOB has now started on HD and will follow volume status and encourage ICS to reexpand lung on right (5) Atrial fibrillation: Plan: cont metoprolol succinate but increased to 100mg daily for better rate control cont Eliquis for stroke prevention (6) Psoriasis: Plan: cont topical steroid therapy he really should follow with dermatology given the severity of his psoriasis (7) CKD (chronic kidney disease) stage 4, GFR 15-29 ml/min: Plan: see above (8) Cirrhosis: Plan: patient with prior h/o HepC s/p treatment in the past (interferon therapy?) hepC ab remains positive - hepC RNA returned very high c/w active disease CT a/p this admission with findings c/w cirrhosis post discharge he will need ID or GI f/u for consideration of Rx of active HepC disease [facility] nurse navigator investigating who we can refer to (9) COPD (chronic obstructive pulmonary disease): Plan: cont combivent 1 puff QID stable (10) Hypertension: Plan: controlled amlodipine, losartan, and HCTZ all stopped; would not continue any of these at discharge remains on metoprolol xl - titrated for a.fib -continue Bumex 2mg po daily (11) History of hepatitis C: Plan: see above (12) Diarrhea: Plan: several months in duration ordered stool BioFire + stool for c diff -- both negative added colestipol 1gm qam-then had constipation--> stopped colestipol perhaps was from gut wall edema from volume overload and poor absorption (13) Right arm pain: Plan: 2nd to malpositioned u/s-guided IV this IV has been pulled doppler w/o DVT there is a small thrombus in the cephalic vein which appears chronic per radiology Eliquis has been resumed (14) Anemia: Plan: hgb stable at 8.9-9.3 was given IV Venofer x 5 doses this admission will received EMMA at HD follow as outpt Plan DVT proph-Eliquis Dispo-cont PT/OT -continued stay to see if needs third HD session on Sat. Can discharge Sat after HD Admission and Anticipated Discharge Date Admission Date: February 20, 2023 Subjective Feeling so much better. Had 2nd HD session today and tolerated well, removed another 2L of fluid Feels it's easier to get out of bed and walk around, has lost 30 lbs since admission Moving bowels. Tele with Afib, rates 80-90s Physical Exam Constitutional: WD/WN, vitals as above + obese Respiratory: normal respiratory effort; no cough and not tachypneic Auscultation: + diminished lung sounds (bibasilar); no crackles and no wheezes Cardiovascular: Rate/Rhythm: regular rate and + irregularly irregular Heart Sounds: no murmur Extremities: + edema (2+ pitting edema to thighs bilat, improving) Gastrointestinal (Abdomen): normal bowel sounds, soft, nontender, no hepatosplenomegaly Skin: + rash (chronic venous stasis dermatitis on legs) Psychiatric: Orientation: alert, oriented x 3 and cooperative Results & Data Results & Data Vital Signs (Past 12 Hours) Vital Signs Temp Pulse Pulse Pulse Resp BP BP 03/05/23 19:57 36.9 C 87 18 154/105 H 03/05/23 19:21 88 18 03/05/23 13:00 89 137/87 03/05/23 12:30 86 137/85 03/05/23 12:00 85 127/77 03/05/23 11:30 81 124/81 03/05/23 10:45 77 94/66 L 03/05/23 13:10 36.6 C 87 142/87 H 03/05/23 11:00 82 124/78 03/05/23 16:55 37.2 C 79 16 148/95 H 03/05/23 10:30 86 123/79 03/05/23 10:00 78 124/90 03/05/23 09:53 36.6 C 75 03/05/23 09:54 Pulse Ox O2 Del Method 03/05/23 19:57 97 Room Air 03/05/23 19:21 97 Room Air 03/05/23 13:00 03/05/23 12:30 03/05/23 12:00 03/05/23 11:30 03/05/23 10:45 03/05/23 13:10 03/05/23 11:00 03/05/23 16:55 97 Room Air 03/05/23 10:30 03/05/23 10:00 03/05/23 09:53 03/05/23 09:54 Room Air Laboratory Results CBC, BMP reviewed PG Care Time/CCT Total # of Minutes Spent Total Time Spent with Patient: Total time spent is greater than 50% in coordination of care (as documented) at patient's floor/unit and/or counseling patient: Coding Level of Care Code 08062 SUB INP/OBS CARE 235MIN Diagnoses Volume overload E87.70 Acute kidney injury superimposed on CKD N17.9; N18.9 Thrombocytopenia D69.6 Pleural effusion on right J90 Atrial fibrillation I48.91 Atrial fibrillation type: unspecified Psoriasis L40.9 CKD (chronic kidney disease) stage 4, GFR 15-29 ml/min N18.4 Cirrhosis K74.60 COPD (chronic obstructive pulmonary disease) J44.9 Hypertension I10 History of hepatitis C Z86.19 Diarrhea R19.7 Right arm pain M79.601 Anemia D64.9 (5) Atrial fibrillation Atrial fibrillation type: unspecified Qualified Code(s): I48.91 - Unspecified atrial fibrillation
[2023-03-06 07:01] LABS: Basophils # (auto) 0.04 K/uL (0-0.2); Basophils % (auto) 0.6 %; Eosinophils # (auto) 0.28 K/uL (0-0.50); Eosinophils % (auto) 3.9 %; Hematocrit (blood only) 28.2 % (42.0-52.0); Hemoglobin 9.1 g/dl (14.0-18.0); Immature Granulocytes # (auto) 0.02 K/uL (0.01-0.20); Immature Granulocytes % (auto) 0.3 %; Lymphocytes # (auto) 1.48 K/uL (1.2-3.4); Lymphocytes % (auto) 20.7 %; Mean Corpuscular Hgb Conc 32.3 g/dL (32.0-36.0); Mean Corpuscular Volume 89.8 fL (80.0-100.0); Mean Platelet Volume 12.3 fL (9.4-12.4); Monocytes # (auto) 0.63 K/uL (0.11-0.59); Monocytes % (auto) 8.8 %; Neutrophils # (auto) 4.71 K/uL (1.40-6.50); Neutrophils % (auto) 65.7 %; Platelet Count 93 K/uL (130-400); RDW Coefficient of Variation 15.2 % (11.5-14.5); RDW Standard Deviation 49.4 fL (36.4-46.3); Red Blood Count 3.14 M/uL (4.70-6.10); White Blood Count 7.16 K/ul (4.8-10.8)
[2023-03-06] MEDS: IPRATROPIUM BROMIDE HFA INHALER INH SCH (07:10)
[2023-03-06] MEDS: ALBUTEROL HFA 8 GM INHALER INH SCH (07:10)
[2023-03-06 07:20] LABS: Calcium 8.4 mg/dl (8.6-10.3); Creatinine Clr Calc Pharmacy 27.6 ml/min; Est GFR (African American) 20.9 ml/min
[2023-03-06] MEDS: APIXABAN 5 MG TABLET PO SCH (08:21)
[2023-03-06] MEDS: FOLIC ACID 1 MG TAB PO SCH (08:21)
[2023-03-06] MEDS: BUMETANIDE 1 MG TAB PO SCH (08:21)
[2023-03-06] MEDS: CYANOCOBALAMIN (B-12) 500 MCG TABLET PO SCH (08:21)
[2023-03-06] MEDS: METOPROLOL SUCC 50MG EXT REL TAB PO SCH (08:21)
[2023-03-06] MEDS: BETAMETHASONE VAL 0.1% CR 15 GM EXT SCH (08:22)
[2023-03-06] MEDS ORDERED: MAGNESIUM OXIDE 400 MG TAB PO SCH (09:00)
--- NOTE | 2023-03-06 10:29 | Nephrology Progress Note ---
Date of Service March 06, 2023 Assessment & Plan (1) End stage renal disease: (2) Anemia: (3) Hypertension: (4) Hyperparathyroidism: (5) Hyperlipidemia: (6) Edema of right upper extremity: Plan ESRD , started on HD for uremia and volume overload, improved. Ready for DC with plan for outpt HD. Noticed right upper extremity edema since yesterday. Overall otherwise feels well all. --will get RT UE USG doppler to evaluate for centrals stenosis prior to DC --OK to DC with plan for outpatient dialysis starting Wednesday -- fluid restriction to less than 1200 mL per day dose medications for EGFR less than 10. Admission and Anticipated Discharge Date Admission Date: February 20, 2023 Rosa M Ray was seen and examined this morning. Overall he feels well and eager to get discharge. Noticed right upper extremity swelling since yesterday. Lower extremity edema improve significantly with ultrafiltration over last few days. Review of Systems Review of Systems: detailed review of system was otherwise unremarkable. All Physical Exam Constitutional: WD/WN, vitals as above no acute distress Eyes: + anicteric sclerae Neck: normal visual inspection Respiratory: no respiratory distress Auscultation: lungs clear to auscultation bilaterally Cardiovascular: Rate/Rhythm: regular rate and regular rhythm Heart Sounds: normal S1 and normal S2 Extremities: + edema (rt UE) Skin: no rashes Neurologic: no focal motor deficits and not confused Psychiatric: Orientation: alert and oriented x 3 Results & Data Vital Signs (Past 12 Hours) Vital Signs Temp Pulse Pulse Resp BP Pulse Ox O2 Del Method 03/06/23 08:00 Room Air 03/06/23 07:46 36.6 C 82 16 158/111 H 95 Room Air 03/06/23 07:10 69 17 95 Room Air 03/06/23 03:30 36.8 C 81 16 112/81 97 Room Air 03/05/23 23:27 36.6 C 82 18 119/81 95 Room Air PG Care Time/CCT Total # of Minutes Spent Total Time Spent with Patient: Total time spent is greater than 50% in coordination of care (as documented) at patient's floor/unit and/or counseling patient: Coding Level of Care Code 25623 SUB INP/OBS CARE 2/35MIN Diagnoses End stage renal disease N18.6 Anemia D64.9 Hypertension I10 Hyperparathyroidism E21.3 Hyperlipidemia E78.5 Edema of right upper extremity R60.0
--- NOTE | 2023-03-06 11:12 | Ultrasound Report ---
RIGHT UPPER EXTREMITY VENOUS DOPPLER HISTORY: rt upper extremity edema, evaluate for central venous stenosis COMPARISON STUDY: None. FINDINGS: The right internal jugular vein is patent. There is normal flow within the right subclavian vein. There is normal flow and compressibility within the right axillary and basilic veins. IMPRESSION: No DVT within the visualized right upper extremity. ACT 112: Negative or not required by law. Electronically signed by: Rigoberto Eddy M.D. 03/06/2023 11:10 AM
--- NOTE | 2023-03-06 12:16 | Discharge Summary ---
Date of Service March 06, 2023 Admission HPI Per Admitting Provider Cory is a 63 year old male with COPD, HFpEF, aifb on Eliquis, stage 4 CKD, and HTN, who presented to the [facility] ED on 02/20 due to ongoing fluid retention and SOB since his abdominal aortic aneurysm and left iliac artery repair with Dr. Guillory on 11/30/22. In the ED the patient's vitals were stable. Labs were significant for a platelet count of 107, INR of 1.1, cr of 4.81 (baseline appears to be 4.3), BNP of 799 (no previous result to compare), and lipase of 89. Chest xray showed a large right pleural effusion and cardiomegaly. At the time of the exam the patient was lying in bed in mild respiratory distress with his daughter sitting bedside. Since his abdominal and iliac aneurysm repair with Dr. Guillory in November he has had progressive SOB and weight gain. He states that he can only walk approximately 5-10 feet without having to sit down and rest. He denies recent fever, chills, chest pain, cough, abd pain, nausea, vomiting, dysuria, hematuria, melena, blood bowel movements and recent trauma. He feels as though he is significantly swollen in his BL legs and abdomen. He has been trying to limit his sodium intake but does drink "a lot" of water daily. He and his daughter explain that he was miss-diagnosed with Cirrhosis previously. He did have Hepatitis-C but his daughter states that he completed treatment previously. He had been taking his 40 mg PO lasix daily along with his losartan-HCTZ daily and even increased his dose of lasix from 40 to 80 mg two days ago without relief. He has only been taking his Eliquis daily instead of BID due to the barrett. However, now that he is 63 and will be on Medic are he can afford to take it BID. He states that Dr. Dyson told him he may need dialysis after his aneurysm repairs but the patient never followed up with Dr. Dyosn after his procedures. He is urinating frequently but in small amounts, he denies dysuria. He is only using topical creams for his Psoriasis and has never been seen by Dermatology or Rheumatology. If needed, he would want dialysis. He is a Full code and would want his daughter to make medical decisions for him if he could not make them himself. Please refer to Dr. Gilbert's attestation for any changes to the treatment plan Admission Exam Per Admitting Provider General:In no acute distress, stated age, chronically ill-appearing, poor hygiene HEENT:Normocephalic, atraumatic, no scleral icterus, pupils around round, symmetrical, and reactive to light, moist mucus membranes, trachea midline, no thyromegaly Chest/Pulm:Mild respiratory distress with pursed lip and abd breathing, symmetrical chest expansion, decreased breath sounds in the right lower and middle lobes, expiratory wheezing noted in all other lung craven Cardiac:irregular rate and rhythm, no murmurs noted Abdomen:Distended abdomen, normoactive bowel sounds, firm, non-tender to palpation throughout Musculoskeletal:Symmetrical and without signs of acute trauma, upper and lower extremities with full ROM, no atrophy, spasticity, or flaccidity Extremities:Radial, dorsalis pedis, and posterior tibial pulses are intact and symmetrical, 3+ pitting edema noted in the BL LE's Skin:Patient with significant Psoriasis patches overlying his BL LE, UE, torso, back, and face. No ulcers noted Neuro:Alert and oriented to person, place, month, year, and president, no focal defects, CN II-XII tested and intact, finger to nose test negative, no tremors noted Psych:No acute distress, calm and cooperative during the exam Principal Diagnosis Acute on chronic kidney disease Discharge Exam Constitutional WD/WN, vitals as above cooperative; no acute distress Eyes + anicteric sclerae ENMT external ear and nose normal, oropharynx normal Neck trachea midline Respiratory normal respiratory effort; no cough Auscultation: + rales (RLL) Cardiovascular Rate/Rhythm: regular rate and regular rhythm Heart Sounds: normal S1, normal S2 and + murmur (systolic ejection ) Chest (Breasts) Chest: + vascular access device or port (R chest wall ) Musculoskeletal Head/Neck/Chest: normocephalic and head atraumatic R UE swelling Skin no rashes, warm and dry Neurologic moves all extremities Psychiatric A+Ox3, euthymic affect Discharge Data Allergies Allergy/AdvReac Type Severity Reaction Status Date / Time No Known Drug Allergies Allergy Unknown Verified 11/30/22 07:36 Consultations 02/20/23 14:13 ED Decision to Admit Stat 02/20/23 15:01 Consult Nephrology Routine 02/20/23 15:07 Consult Pulmonology Routine 03/03/23 10:11 Consult Vascular Surgery Routine Procedures Performed Operation Date: 03/03/23 11:50 Actual Procedures p Insertion or Perm Catheter Right Jugular Approach, Ultrasound Localization of Right Jugular Vein, Fluoroscopy for Positioning(Right) - Lorenzo Guillory MD Ordered Studies 02/20/23 14:22 CT abd pelvis wo con Stat CT chest diagnostic wo con Stat 02/26/23 US venous doppler UE RT Routine 03/03/23 10:32 EV cvc insrt tunnel wo prt/ware finisher Routine US EV guide vascular access Routine 03/06/23 09:55 US venous doppler UE RT Urgent Hospital Course (1) Volume overload: Mr. Trejo is a 63 yo M with a PMHx of CKD and cirrhosis who was admitted for volume overload secondary to acute kindey injury on chronic CKD and underlying hepatic vascular congestion 2/2 cirrhosis. Treated with diuresis and started on dialysis. He underwent HD on 03/04 and a second session on 03/05. A perm cath was placed. He is arranged to have his first session on Wednesday at 11:00am at [facility] in [place] and will continue MWF HD there. Patient lost > 30 pounds since admission from [facility]. Continue Bumx 2mg once daily (discontinued home lasix). (2) Acute kidney injury superimposed on CKD: - baseline Cr about 4-4.5 with baseline CrCl 20s (c/w stage 4 CKD) - with volume overloaded from worsening renal disease and cirrhosis (likely 2nd HepC) - diuresed with Bumex and metolazone - home dose losartan-HCTZ stopped (3) Thrombocytopenia: Plan: moderate with platelet count 60s for several days; now improved up to 80-90s no bleeding from any location cont cautious use of Eliquis suspect chronically low platelets likely from cirrhosis checked TSH - wnl B12 and folate levels both low-normal --> supplemented both while inpatient (4) Pleural effusion on right: Plan: s/p thoracentesis with 1500+ out fluid studies c/w transudative fluid from renal and/or liver disease culture neg; cytologies negative he continues to have decreased BS R base on exam patient also had collapse of RML and RLL on CT chest earlier this stay; it is possible those lobes have simply not re-expanded (CT chest - 02/20/23 -- "Partial collapse of the right middle and lower lobes. No obstructing endobronchial lesion identified on this exam.") -CXR 03/03 again with pleural effusion on right with volume loss on right-PULM signed off not hypoxic, no SOB has now started on HD and will follow volume status and encourage ICS to reexpand lung on right (5) Atrial fibrillation: Plan: cont metoprolol succinate but increased to 100mg daily for better rate control cont Eliquis for stroke prevention (6) Psoriasis: Plan: cont topical steroid therapy he really should follow with dermatology given the severity of his psoriasis --> referarl placed for him to see [facility] upon discharge (7) CKD (chronic kidney disease) stage 4, GFR 15-29 ml/min: Plan: see above (8) Cirrhosis: Plan: patient with prior h/o HepC s/p treatment in the past (interferon therapy?) hepC ab remains positive - hepC RNA returned very high c/w active disease CT a/p this admission with findings c/w cirrhosis - Referral placed for patient to psychiatric hospital with [facility] (9) COPD (chronic obstructive pulmonary disease): Plan: cont combivent 1 puff QID stable (10) Hypertension: Plan: controlled amlodipine, losartan, and HCTZ all stopped; would not continue any of these at discharge remains on metoprolol xl - titrated for a.fib-continue Bumex 2mg po daily (11) History of hepatitis C: Plan: see above (12) Diarrhea: Plan: several months in duration ordered stool BioFire + stool for c diff -- both negative added colestipol 1gm qam-then had constipation--> stopped colestipol perhaps was from gut wall edema from volume overload and poor absorption (13) Right arm pain: Plan: 2nd to malpositioned u/s-guided IV this IV has been pulled doppler w/o DVT there is a small thrombus in the cephalic vein which appears chronic per radiology Eliquis has been resumed (14) Anemia: Plan: hgb stable at 8.9-9.3 was given IV Venofer x 5 doses this admission will received EMMA at HD follow as outpt (15) New murmur - appreciated on exam - recommend evaluation with echo as outpatient Total Time Total Time Spent Total Time Spent (In Minutes): 33 Total Time Includes: Examination of the Patient and Discharge Planning Discharge Plan Discharge Items Patient Disposition: Home - Self-Care Reason For Visit: SOB, WEIGHT GAIN Discharge Diagnosis: Acute on chronic kidney disease Activity: Resume your previous activity Non-emergency contact: Primary Care Provider Call non-emergency contact if: your symptoms worsen Follow-up/Referrals: Balaji Tapia MD [Physician] - Unique Frances MD [Primary Care Provider] - Adair Bowden DO [Outside Practitioners] - (Please schedule in Hep C clinic) Diet: Dialysis Renal Addtl Attending Provider Instructions: You were hospitalized at [facility] for volume overload -- the cause of which was thought to be due to acute worsening of your chronic kidney disease and also your underlying cirrhosis. The kidney specialist was consulted during your hospital stay and they recommended you start dialysis for your progressive kidney disease. You are arranged to continue with dialysis sessions on 03/08/23. You clinically improved with removal of the excess fluid from your body. We made several changes to your medication regimen, please see below: 1. Please increase your dose of metoprolol from 50 to 100mg daily. 2. Please STOP your amlodipine, losartan and hydrochlorothiazide combination pill. 3. Please START using the Combivent Respimat inhaler FOUR TIMES daily 4. Please STOP taking Lasix (ie furosemide) and START taking Bumex 2mg once e very morning. Please follow up with your family doctor, Dr. Frances within 1 week of your discharge. Additionally, we would like you to see our water purifier, Dr. Tapia, for evaluation of your psoriasis. A referral has been placed for this -- you can expect a phone call to schedule your visit. Next, you have active hepatitis C virus. This infection can cause liver cancer if left untreated. We recommend you be evaluated for re-treatment at [facility] in [place]. A referral has been placed for this as well and you will be getting a phone all to schedule. Pending Studies at Discharge: No Stand-Alone Forms: My [facility], Smoking Cessation Medications and DC Order Prescriptions: New bumetanide 1 mg Tablet 2 mg PO QAM 30 Days Qty: 30 0RF Combivent Respimat 20-100 mcg/actuation mist 1 puff inhalation QID 30 Days Qty: 4 0RF Rx Instructions: space evenly during waking hours metoprolol succinate 50 mg Tablet Extended Release 24 Hr 100 mg PO QAM 30 Days Qty: 30 0RF Continued Eliquis 5 mg tablet 5 mg PO DAILY Discontinued losartan-hydrochlorothiazide 100-25 mg tablet 1 tab PO QAM amlodipine 10 mg tablet 10 mg PO QAM metoprolol succinate 50 mg tablet extended release 24 hr 50 mg PO QAM furosemide 40 mg tablet 40 mg PO QAM Discharge Orders: Discharge Order (Routine); Ordered 03/06/23 Ordered By: Dayami Hicks/Other Patient Handouts: Hemodialysis, Hepatitis C: Getting Support Admission Data Admit Date/Time: 02/20/23 14:59 Attending Provider: Dayami Ospina Admit Provider: Saulo Gilbert Primary Care Provider: Unique Frances Other Providers: Saulo Gilbert ; Corona Jin ; Ant Deluna ; Lorenzo Guillory ; Trinity Bueno Other Interventions: Discharge Summary Assessment (RN) Last Done: 03/06/23 12:43 Coding Level of Care Code 73095 INP/OBS DISCH >30 MIN Diagnoses Volume overload E87.70
== END 2023-03-06 15:34 | disposition home or self-care (01) | DRG 640 ==
LOC: ED 11:45 → SUATTDRO 14:59 → 2S 14:59